=== PATIENT | male | born 1945 | race Caucasian/White ===

== ENCOUNTER 2019-08-11 13:17 | Outpatient (CLI) | payer MEDICARE, OTHER, SELFPAY ==
--- NOTE | 2019-08-11 13:39 | XR_ITS ---
WS: [id number] CHEST 2 VIEWS HISTORY: CHRONIC OBSTRUCTIVE PULMONARY DISEASE COMPARISON: 05/19/2019 Lungs: Stable elevation of the LEFT hemidiaphragm consistent with an eventration. No pneumonia. Val l vasculature. No pleural effusion or pneumothorax. Mild fullness in the paratracheal region on the R IGHT is similar to 10/15/2018. No mediastinal widening or interval change. Cardiac size: Normal. Mediastinum/Aorta: Mild atherosclerosis aorta. Bones: Prior anterior cervical fusion. XR/XR chest 2V* [id number] IMPRESSION: 1. Stable chest with no acute pneumonia. 2. Mild atherosclerosis aorta.
== END 2019-08-11 13:18 | disposition home or self-care (01) ==
LOC: WPI 13:22
PROVIDERS: Family Provider Family Medicine; PCP Family Medicine; Referring Provider Family Medicine; Visit Provider Family Medicine
DX: J44.9 Chronic obstructive pulmonary disease, unspecified (principal); I70.0 Atherosclerosis of aorta
CPT/HCPCS: 71046

== ENCOUNTER → 2020-05-18 14:44 | Outpatient (BNVA) | payer MEDICARE, OTHER, SELFPAY | PROVIDERS: Family Provider Family Medicine; PCP Family Medicine; Visit Provider Surgery | DX: Z11.59 Encounter for screening for other viral diseases (principal) | CPT/HCPCS: 87635 ==

== ENCOUNTER 2020-05-23 07:05 | Day surgery (SDC) | payer MEDICARE, OTHER, SELFPAY ==
[2020-05-19 11:31] VITALS: BMI 27.4
[2020-05-23 07:23] VITALS: BP 164/89; PULSE 68; RESP 18; TEMP 36.7; O2SAT 99
[2020-05-23] MEDS: sodium chloride 0.9% 1,000 ML 30 ML IV (07:34)
--- NOTE | 2020-05-23 07:44 | ANES.PREANE2 ---
Pre-Anesthetic Assessment Pre-Anesthetic Assessment: Height/Weight: Height 1.68 m Weight 77.111 kg Temp Pulse Resp BP Pulse Ox 98.1 F 68 18 164/89 99 05/23/20 07:23 05/23/20 07:23 05/23/20 07:23 05/23/20 07:23 05/23/20 07:23 Preop Diagnosis: Screening, dysphagia Proposed Procedure: Operation Date: 05/23/20 08:00 Proposed Procedures p EGD Dilation W/ poss Balloon/Colon(Not Applicable) - Nasir Godfrey MD s Colonoscopy(Not Applicable) - Nasir Godfrey MD Familial anesthetic complications: None Was Beta Phillip taken within 24 hours: Yes Last intake: Intake Last Liquid Date 05/22/20 Last Liquid Time 19:00 Last Solid Date 05/21/20 Last Solid Time 20:00 Social: Social History: No alcohol and No tobacco Exam: Pre-Anes Outpt Exam: alert, oriented x 3, clear to auscultation bilaterally and regular rate & rhythm Airway: Cervical ROM: WNL MP: 2 Dentition: Other (edentulous) Pulmonary: Pulmonary: COPD and Sleep apnea CV/HEM: CV/HEM: HTN GI: GI: GERD Comments: dysphagia Anesthetic Plan: ASA status: 2 Anesthesia: MAC Risk of > 500 ml blood loss (7ml/kg in children): No Meds/Allergies Current Medications: Current Medications Generic Name Dose Route Start Last Admin Trade Name Freq PRN Reason Stop Dose Admin Sodium Chloride 1,000 mls @ 30 ml s/hr 05/23/20 07:00 05/23/20 07:34 Sodium Chloride 0.9% IV 30 mls/hr .Q24H FRANCESCA Administration PFSH Anesthesia PFSH: Medical History Chronic bronchitis, obstructive Essential hypertension GERD (gastroesophageal reflux disease) KAREN (obstructive sleep apnea) Surgical History History of esophagogastroduodenoscopy (EGD) balloon dilation History of neck surgery S/P cataract surgery Social History Smoking and tobacco status: never smoked Alcohol intake: never Data Anesthesia Cardiac Studies: No Data to Display
--- NOTE | 2020-05-23 08:07 | W.PM.OPSUD ---
Surgery/Procedure H&P Update DATE OF PROCEDURE: May 23, 2020 DATE H&P PERFORMED: 05/05/20 H&P UPDATE INFORMATION: I have reviewed H&P completed within last 30 days, I have examined patient prior to procedure and No changes to prior documentation PREOP DIAGNOSIS: Screening, dysphagia PLANNED PROCEDURE: Operation Date: 05/23/20 08:00 Proposed Procedures p EGD Dilation W/ poss Balloon/Colon(Not Applicable) - Nasir Godfrey MD s Colonoscopy(Not Applicable) - Nasir Godfrey MD
[2020-05-23 08:43] VITALS: BP 98/61; PULSE 65; RESP 16; TEMP 36.1; O2SAT 94
[2020-05-23 09:02] VITALS: BP 124/68; PULSE 61; RESP 18; O2SAT 100
--- NOTE | 2020-05-23 09:34 | ANE.PACU2 ---
Inpatient post-anesthesia follow up: Airway intact: Yes Vital signs: Temperature 97 F Pulse Rate 61 Respiratory Rate 18 Blood Pressure 124/68 Pulse Oximetry 100 Oxygen Delivery Me thod Room Air Oxygen Flow Rate Fraction of Inspir ed Oxygen Hydration adequate: Yes Nausea and vomiting: No Pain level: 1 Mental status: Baseline
== END 2020-05-23 09:21 | disposition home or self-care (01) ==
PROVIDERS: PCP Family Medicine; Visit Provider Surgery
PROC: 0DJD8ZZ Inspection of Lower Intestinal Tract, Via Natural or Artificial Opening Endoscopic (ICD-10-PCS; CPT 45378; 2020-05-23 08:00)
DX: Z12.11 Encounter for screening for malignant neoplasm of colon (principal); R13.10 Dysphagia, unspecified; D12.2 Benign neoplasm of ascending colon; K29.70 Gastritis, unspecified, without bleeding; K29.80 Duodenitis without bleeding; J44.9 Chronic obstructive pulmonary disease, unspecified; I10 Essential (primary) hypertension; G47.33 Obstructive sleep apnea (adult) (pediatric); K21.9 Gastro-esophageal reflux disease without esophagitis
CPT/HCPCS: 12345; 43235; 45380; 88305; J2704; J7030

== ENCOUNTER → 2020-08-15 11:56 | Outpatient (BNVA) | payer MEDICARE, SELFPAY | PROVIDERS: PCP Family Medicine; Visit Provider Family Medicine | DX: I10 Essential (primary) hypertension (principal); R13.12 Dysphagia, oropharyngeal phase; J44.9 Chronic obstructive pulmonary disease, unspecified | CPT/HCPCS: 80053; 85025 ==

== ENCOUNTER → 2020-11-28 13:00 | Outpatient (BNVA) | payer MEDICARE, SELFPAY | PROVIDERS: PCP Family Medicine; Referring Provider Dermatology; Visit Provider Podiatrist Foot & Ankle Surgery | DX: M79.671 Pain in right foot (principal); M76.821 Posterior tibial tendinitis, right leg; M76.822 Posterior tibial tendinitis, left leg; Z46.89 Encounter for fitting and adjustment of other specified devices | CPT/HCPCS: 73630; 97760; L1902 ==

== ENCOUNTER 2020-11-28 14:50 | Outpatient (CLI) | payer MEDICARE, SELFPAY | END 2020-11-28 14:51 | PROVIDERS: PCP Family Medicine; Visit Provider Podiatrist Foot & Ankle Surgery | DX: Z46.89 Encounter for fitting and adjustment of other specified devices (principal); M76.821 Posterior tibial tendinitis, right leg; M76.822 Posterior tibial tendinitis, left leg; M79.671 Pain in right foot | CPT/HCPCS: 97760; L1902 ==

== ENCOUNTER 2021-09-30 12:50 | Inpatient (IN) | payer MEDICARE, SELFPAY ==
[2021-09-30] VITALS (7 sets, daily range): BP systolic 93–189; BP diastolic 50–97; PULSE 66–97; RESP 18–20; TEMP 36.5–36.8; O2SAT 94–99; BMI 26.6
--- NOTE | 2021-09-30 12:52 | XRR_ITS ---
PROCEDURE INFORMATION: Exam: XR Right Knee Exam date and time: 09/30/2021 12:52 PM Age: 76 years old Clinical indication: Injury or trauma; Fall; Blunt trauma; Knee; Right TECHNIQUE: Imaging protocol: XR Right knee. Views: 1 or 2 views. COMPARISON: No relevant prior studies available. FINDINGS: Bones/joints: There is tricompartmental narrowing consistent with osteoarthritis. No acute bony abnormalities seen. Soft tissues: Unremarkable XR/XR knee RT 1-2V [id number] IMPRESSION: 1. No acute bone abnormalities 2. Osteoarthritis is seen
--- NOTE | 2021-09-30 12:52 | XRR_ITS ---
PROCEDURE INFORMATION: Exam: XR Right Hip Exam date and time: 09/30/2021 12:52 PM Age: 76 years old Clinical indication: Injury or trauma; Fall; Blunt trauma (contusions or hematomas); Right; Hip TECHNIQUE: Imaging protocol: XR Right hip. Views: 2 or 3 views hip with pelvis when performed. COMPARISON: No relevant prior studies available. FINDINGS: Bones/joints: There is a displaced comminuted intertrochanteric fracture right hip. Soft tissues: Soft tissue effusion is seen in the right hip soft tissues. XR/XR hip RT 2-3V wo/w pel* [id number] IMPRESSION: Displaced comminuted intertrochanteric fracture right hip
[2021-09-30] MEDS: acetaminophen 500 mg Tablet PO (13:04)
--- NOTE | 2021-09-30 13:08 | ED_ITS ---
HPI - General Adult General: Chief complaint: Fall Stated complaint: RIGHT HIP AND KNEE PAIN S/P FALL Time Seen by Provider: 09/30/21 12:51 History of Present Illness: Patient is a 76-year-old male who slipped and fell on ice about an hour ago while walking his dog. Patient tells me that he slipped and fell onto his right hip and now is complaining of right hip and right knee pain patient also reports hitting the right side of his head. Patient denies any associate chest pain, shortness breath, palpitation or lightheadedness prior to the episode of fall. His leg appears to be shortened and externally rotated. Patient denies any anticoagulation use. No other pain elsewhere. Onset:1 hr ago Duration:1 hr Location:home Severity:moderate/severe Associated symptoms: Deny chest pain, dyspnea, nausea, rash, palpitations or vomiting Review of Systems Const: Denies: fever(s) or chills Eyes: Denies: change in vision ENMT: Denies: mouth pain Card: Denies: chest pain or palpitations Resp: Denies: dyspnea or non-productive cough GI: Denies: abdominal pain, nausea, vomiting or diarrhea : Denies: dysuria Musc: Reports: extremity pain (+R knee and hip pain) Skin/Breast: Denies: rash or new lesions Neuro: Denies: weakness in extremities Psych: Reports: other (Normal mood) Mejia/Lymph: Denies: easy bruising [facility] ED PFSH: Medical History (Updated 09/30/21 @ 14:58 by Vinny Keller MD) Chronic bronchitis, obstructive Essential hypertension GERD (gastroesophageal reflux disease) KAREN (obstructive sleep apnea) Surgical History History of colonoscopy with polypectomy (05/23/20) History of esophagogastroduodenoscopy (EGD) (05/23/20) Gastritis is duodenitis History of neck surgery S/P cataract surgery Social History Smoking and tobacco status: former smoker Alcohol intake: never Physical Exam Const: COMMON NORMALS: alert HENMT: COMMON NORMALS: atraumatic HEAD & SCALP: atraumatic MOUTH: moist mucous membranes not abnormal Eye: COMMON NORMALS: EOMs intact bilaterally and conjunctivae normal CONJUNCTIVA: Yes conjunctivae normal Neck/C-Spine: COMMON NORMALS: full ROM and supple Resp: COMMON NORMALS: normal respiratory effort and clear to auscultation bilaterally AUSCULTATION: clear to auscultation bilaterally Cardio: COMMON NORMALS: regular rate RATE: regular rate GI: COMMON NORMALS: Soft to palpation and non-tender PALPATION: Yes Soft to palpation Extremity: OTHER: + Externally rotated and shortened right leg, right hip and knee tenderness palpation, limited range of motion of the right knee and hip due to significant pain, 2+ DP/PT pulses, neurovascular exam in the right lower extremity intact Neuro: SENSORIUM/ORIENTATION: Yes alert MOTOR EXAM: No Abnormal motor strength present and Other motor observations present (no focal motor deficits) Psych: COMMON NORMALS: speech normal SPEECH: Yes normal speech MOOD & AFFECT: Yes euthymic mood Procedures Nerve Block Nerve Block 1: Local Anesthetic: lidocaine 1%, bupivacaine 0.5% and with epi Amount of anesthesia used (mL): 8 Nerve Blocks: other (pericapsular JENNIFER block) Procedure Successful: Yes Patient Tolerated Procedure: well Complications: none Additional Comments: Timeout was performed prior to the procedure. Risks discussed with patient extensively with patient of the JENNIFER block occluding risk for infection, vascular injury, LAST syndrome, and motor deficit. 12 cc of saline was mixed with 8 cc of 50/51% lidocaine and 0.5% bupivacaine. Right groin was cleaned with chlorhexidine preps x2. Sterile gloves were donned and sterile ultrasound probe cover was used. The AIIS was identified followed by IPE. The obturator tendon was then identified. Under ultrasound guidance, 20 cc mixed solution was sterilely injected underneath the obturator tendon. Patient tolerated the patient procedure without any difficulty. Patient achieved adequate anesthesia with technique. Course Vital Signs: Vital signs: Vital Signs Temperature 98.2 F 09/30/21 12:53 Pulse Rate 75 09/30/21 12:53 Respiratory Rate 18 09/30/21 12:58 Blood Pressure 159/97 09/30/21 12:58 Pulse Oximetry 96 09/30/21 13:17 MDM - General Adult Medical Decision Making 76-year-old male presenting to the emergency room after a slip and fall on ice. Patient has an externally rotated and shortened right leg. The affected site is neurovascularly intact. Patient also reports hitting his head. Work-up includes x-ray pelvis, x-ray hip, x-ray knee, CT head Treatments: Tylenol, reassessment Was found to have a right intertrochanteric fracture. Pain was controlled with the JENNIFER nerve block. Please refer to the procedure note. Case was duscyssed with Dr. Santana who admit patient. Dr. Hull will follow patient for medical consult. Rest of imaging negative for any acute findings. Disposition: admission Lab Data : 09/30/21 13:12 09/30/21 13:12 Radiology Impressions Hip/Pelvis X-Ray 09/30/21 12:52 IMPRESSION: Displaced comminuted intertrochanteric fracture right hip Knee X-Ray 09/30/21 12:52 IMPRESSION: 1. No acute bone abnormalities 2. 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 No acute intracranial abnormality. 2. Chronic sinusitis Chest X-Ray 09/30/21 13:29 IMPRESSION: 1. No acute findings. 2. Metallic hardware cervical spine Laboratory Results WBC 13.5 10^3/uL (4.0-10.0) H 09/30/21 13:12 RBC 3.95 10^6/uL (4.1-5.3) L 09/30/21 13:12 Hgb 12.5 g/dL (11.7-16.6) 09/30/21 13:12 Hct 37.7 % (42.0-52.0) L 09/30/21 13:12 MCV 95.4 fl (80-94) H 09/30/21 13:12 MCH 31.6 pg (28.0-34.0) 09/30/21 13:12 MCHC 33.2 g/dL (30.0-36.0) 09/30/21 13:12 RDW 12.6 % (12.1-15.1) 09/30/21 13:12 Plt Count 312 10^3/cmm (130-400) 09/30/21 13:12 MPV 10.1 fL (7.4-10.4) 09/30/21 13:12 Neut % (Auto) 74.1 % 09/30/21 13:12 Lymph % (Auto) 17.2 % 09/30/21 13:12 [place] % (Auto) 6.0 % 09/30/21 13:12 Eos % (Auto) 1.6 % 09/30/21 13:12 Baso % (Auto) 0.5 % 09/30/21 13:12 Neut # (Auto) 10.02 10^3/uL (1.8-7.7) H 09/30/21 13:12 Lymph # (Auto) 2.3 10^3/uL (0.8-4.8) 09/30/21 13:12 [place] # (Auto) 0.8 10^3/uL (0.2-0.9) 09/30/21 13:12 Eos # (Auto) 0.2 10^3/uL (0.0-0.8) 09/30/21 13:12 Baso # (Auto) 0.1 10^3/uL (0.0-0.1) 09/30/21 13:12 Nucleated RBC % (auto) 0 % 09/30/21 13:12 Nucleated RBCs # 0.0 /100WBC 09/30/21 13:12 Sodium 133 mmol/L (136-145) L 09/30/21 13:12 Potassium 4.1 mmol/L (3.5-5.1) 09/30/21 13:12 Chloride 96 mmol/L (98-107) L 09/30/21 13:12 Carbon Dioxide 27 mmol/L (22-29) 09/30/21 13:12 Anion Gap 14.1 (5-19) 09/30/21 13:12 BUN 28 mg/dL (8-23) H 09/30/21 13:12 Creatinine 1.0 mg/dL (0.7-1.2) 09/30/21 13:12 GFR Calculation Not Reportable 09/30/21 13:12 Glucose 131 mg/dL (65-115) H 09/30/21 13:12 Calculated Osmolality 283 mOsm/kg (285-295) L 09/30/21 13:12 Calcium 9.7 mg/dL (8.5-10.5) 09/30/21 13:12 Imaging Data Other Imaging: Radiologist's impression: [address] [address] [address] Scan Report Signed Patient: Shai Duran Unit #: [id number] : 01/03/1950 Age/Sex: 71 / M ADM Date: 09/30/21 Loc: ER Room/Bed: Attending Dr: Ordering Provider/Ordering MD: Vinny Keller MD Date of Service: 09/30/21 Procedure(s): CT lumbar spine wo con* [id number] Accession Number(s): [id number] Report Number: [id number] PROCEDURE INFORMATION: Exam: CT Lumbar Spine Without Contrast Exam date and time: 09/30/2021 12:35 PM Age: 71 years old Clinical indication: Low back pain; Patient HX: C/O worsening chronic lbp into L pelvis/hip denies new injury TECHNIQUE: Imaging protocol: Computed tomography images of the lumbar spine without contrast. Radiation optimization: All CT scans at this facility use at least one of these dose optimization techniques: automated exposure control; mA and/or kV adjustment per patient size (includes targeted exams where dose is matched to clinical indication); or iterative reconstruction. COMPARISON: No relevant prior studies available. RADIATION DOSE METRICS: Total DLP (mGy-cm): 2297.99 FINDINGS: Vertebrae: No acute fracture. Normal alignment. Chronic degenerative disc disease is present throughout the lumbar spine with disc space narrowing sclerosis and osteophytes. There is sclerosis narrowing and hypertrophy of the lumbar facet joints. L1-L2: There is disc protrusion/osteophyte complex with facet joint hypertrophy causing moderate spinal stenosis. There is no significant neural foraminal narrowing. L2-L3: There is disc protrusion/osteophyte complex with bilateral facet and ligamentous hypertrophy causing severe spinal stenosis and mild bilateral neural foraminal narrowing L3-L4: There is mild diffuse disc bulging and there is bilateral facet joint hypertrophy. There is mild spinal stenosis L4-L5: There is disc protrusion/osteophyte complex with prominent bilateral facet hypertrophy causing moderate spinal stenosis with mild neural foraminal narrowing L5-S1: There is mild disc protrusion. There is prominent degenerative disease in the facet joints. There is no significant spinal stenosis or neural foraminal narrowing. Soft tissues: Unremarkable. CT/CT lumbar spine wo con* [id number] IMPRESSION: Multilevel chronic degenerative disc disease and spinal stenosis. There is moderate spinal stenosis at L1-L2 and L4-L5 and severe spinal stenosis at the L2-L3 level. ? Dictated By: Chilo Lewis Signed By: Chilo Lewis Signed Date/Time: 09/30/21 1358 DD/ 1235 Launch?Image [facility] [place] [id number] XRay Report Signed Patient: Seb Spangler Unit #: [id number] : 1945 Age/Sex: 76 / M ADM Date: 09/30/21 Loc: ER Room/Bed: Attending Dr: Ordering Provider/Ordering MD: Vinny Keller MD Date of Service: 09/30/21 Procedure(s): XR knee RT 1-2V 58602 Accession Number(s): [id number] Report Number: [id number] PROCEDURE INFORMATION: Exam: XR Right Knee Exam date and time: 09/30/2021 12:52 PM Age: 76 years old Clinical indication: Injury or trauma; Fall; Blunt trauma; Knee; Right TECHNIQUE: Imaging protocol: XR Right knee. Views: 1 or 2 views. COMPARISON: No relevant prior studies available. FINDINGS: Bones/joints: There is tricompartmental narrowing consistent with osteoarthritis. No acute bony abnormalities seen. Soft tissues: Unremarkable XR/XR knee RT 1-2V 63160 IMPRESSION: 1. No acute bone abnormalities 2. Osteoarthritis is seen ? Dictated By: Gera Hook Signed By: Gera Hook Signed Date/Time: 09/30/21 1417 DD/ 1252 Seb Spangler??76??M??1945 ? Allergy/Adv: codeine Close Chest X-Ray (Signed) Gera Hook - 09/30/[address] 09/30/21 Knee X-Ray (Signed) Gera Hook - 09/30/21 Hip and Pelvis X-Ray (Signed) Gera Hook - 09/30/21 Foot X-Ray (Signed) Gera Hook - 11/28/20 Chest X-Ray (Signed) Mitzy Knott - 08/11/19 Launch?Image [employer] [place] [address] XRay Report Signed Patient: Seb Spangler Unit #: [id number] : 1945 Age/Sex: 76 / M ADM Date: 09/30/21 Loc: ER Room/Bed: Attending Dr: Ordering Provider/Ordering MD: Vinny Keller MD Date of Service: 09/30/21 Procedure(s): XR hip RT 2-3V wo/w pel* [id number] Accession Number(s): [id number] Report Number: [id number] PROCEDURE INFORMATION: Exam: XR Right Hip Exam date and time: 09/30/2021 12:52 PM Age: 76 years old Clinical indication: Injury or trauma; Fall; Blunt trauma (contusions or hematomas); Right; Hip TECHNIQUE: Imaging protocol: XR Right hip. Views: 2 or 3 views hip with pelvis when performed. COMPARISON: No relevant prior studies available. FINDINGS: Bones/joints:? There is a displaced comminuted intertrochanteric fracture right hip. Soft tissues:? Soft tissue effusion is seen in the right hip soft tissues.? XR/XR hip RT 2-3V wo/w pel* [id number] IMPRESSION: Displaced comminuted intertrochanteric fracture right hip ? Dictated By: Gera Hook Signed By: Gera Hook Signed Date/Time: 09/30/21 1419 DD/ [address] [address] [address] Scan Report Signed Patient: Seb Spangler Unit #: [id number] : 1945 Age/Sex: 76 / M ADM Date: 09/30/21 Loc: [facility] Room/Bed: [facility] Attending Dr: Brandon Santana MD Ordering Provider/Ordering MD: Vinny Keller MD Date of Service: 09/30/21 Procedure(s): CT head wo con* [id number] Accession Number(s): [id number] Report Number: [id number] PROCEDURE INFORMATION: Exam: CT Head Without Contrast Exam date and time: 09/30/2021 1:06 PM Age: 76 years old Clinical indication: Injury or trauma; Blunt trauma (contusions or hematomas); Without loss of consciousness; Patient HX: Fall on ice hitting R side of head denies loc TECHNIQUE: Imaging protocol: Computed tomography of the head without contrast. Radiation optimization: All CT scans at this facility use at least one of these dose optimization techniques: automated exposure control; mA and/or kV adjustment per patient size (includes targeted exams where dose is matched to clinical indication); or iterative reconstruction. COMPARISON: MRI Head w/wo* [id number] 12/08/2014 8:45 AM RADIATION DOSE METRICS: Total DLP (mGy-cm): 865.97 FINDINGS: Brain: Normal. No hemorrhage. Unremarkable white matter. No mass effect. Cerebral ventricles: No ventriculomegaly. Paranasal sinuses: Mucous collections are noted in the ethmoid sinuses the left frontal sinus, and posterior aspect of the maxillary sinuses. These findings are consistent with chronic sinusitis. No fluid levels. Mastoid air cells: Visualized mastoid air cells are well aerated. Bones/joints: Unremarkable. No acute fracture. Soft tissues: Unremarkable. Other findings: Comparison to prior examination similar findings is seen CT/CT head wo con* [id number] IMPRESSION: 1. No acute intracranial abnormality. 2. Chronic sinusitis ? Dictated By: Gera Hook Signed By: Gera Hook Signed Date/Time: 09/30/21 1458 DD/ 1306 Discharge Plan Discharge Patient Disposition: Admitted As Inpatient Admit Provider: Brandon Santana Clinical Impression: Fall, Acute hip pain, Acute knee pain, Closed intertrochanteric fracture Condition: Stable Coding Level of Care Code ED Cyber Forensics Analyst for Faye Fwd Exam Comprehensive
--- NOTE | 2021-09-30 13:16 | PC.NURSE ---
c/o pain to R hip & knee, RLE externally rotated & shortened.
--- NOTE | 2021-09-30 13:29 | XRR_ITS ---
PROCEDURE INFORMATION: Exam: XR Chest Exam date and time: 09/30/2021 1:29 PM Age: 76 years old Clinical indication: Injury or trauma; Fall; Blunt trauma (contusions or hematomas); Additional info: Pre op TECHNIQUE: Imaging protocol: XR of the chest. Views: 1 view. COMPARISON: CR XR chest 2V* [id number] 08/11/2019 1:44 PM FINDINGS: Lungs: Unremarkable. No consolidation. Pleural spaces: Unremarkable. No pleural effusion. No pneumothorax. Heart/Mediastinum: Unremarkable. No cardiomegaly. Bones/joints: Metallic hardware is seen in the cervical spine XR/XR chest 1V portable [id number] IMPRESSION: 1. No acute findings. 2. Metallic hardware cervical spine
--- NOTE | 2021-09-30 13:46 | ECG_ITS ---
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 Measurements Intervals [place] Rate: 72 P: 55 VT: 178 QRS: 28 QRSD: 106 T: 60 QT: 384 QTc: 422 Interpretive Statements SINUS RHYTHM NONSPECIFIC T-WAVE ABNORMALITY Compared to ECG 10/15/2018 13:07:06 T-wave abnormality now present Electronically Signed On 09-30-2021 21:54:03 ACCORDION TUNER by Walker Marino M.D. [email or web address]
[2021-09-30 14:00] LABS: Basophils # 0.1 10^3/uL (0.0-0.1); Basophils % 0.5 %; Eosinophils # 0.2 10^3/uL (0.0-0.8); Eosinophils % 1.6 %; Hematocrit 37.7 % (42.0-52.0); Hemoglobin 12.5 g/dL (11.7-16.6); Lymphocytes # 2.3 10^3/uL (0.8-4.8); Lymphocytes % 17.2 %; Mean Corpuscular HGB Conc 33.2 g/dL (30.0-36.0); Mean Corpuscular Hemoglobin 31.6 pg (28.0-34.0); Mean Corpuscular Volume 95.4 fl (80-94); Mean Platelet Volume 10.1 fL (7.4-10.4); Monocytes # 0.8 10^3/uL (0.2-0.9); Neutrophils # 10.02 10^3/uL (1.8-7.7); Neutrophils % 74.1 %; Nucleated Red Blood Cells % 0 %; Platelet Count 312 10^3/cmm (130-400); Red Blood Count 3.95 10^6/uL (4.1-5.3); Red Cell Distribution Width 12.6 % (12.1-15.1); White Blood Count 13.5 10^3/uL (4.0-10.0)
[2021-09-30 14:09] LABS: Blood Urea Nitrogen 28 mg/dL (8-23); Calcium 9.7 mg/dL (8.5-10.5); Carbon Dioxide 27 mmol/L (22-29); Chloride 96 mmol/L (98-107); Glucose 131 mg/dL (65-115); Osmolality Calculated 283 mOsm/kg (285-295); Sodium 133 mmol/L (136-145)
[2021-09-30 14:40] LABS: Anion Gap 14.1 (5-19)
[2021-09-30 14:41] LABS: Potassium 4.1 mmol/L (3.5-5.1)
[2021-09-30 14:55] LABS: INR 0.99 (0.8-1.2)
--- NOTE | 2021-09-30 16:41 | P.CONIM_ITS ---
Providers/Reason For Consult Consulting Physician/Specialty*: Brandon Santana MD; orthopedic surgery Reason for Consult*: Right intratrochanteric hip fracture Attending Physician: Brandon Santana MD Primary Care Provider: Cecile Johnston MD History of Present Illness History of Present Illness Seb Spangler is a 76 year old male slipped and fell on the ice while walking his dog this morning with resulting pain in his right hip. He was transferred here via EMS where radiographs revealed a displaced right intertrochanteric hip fracture. He is admitted to medicine and orthopedics is consulted for management of the fracture Medications/Allergies Home Medications Medication Instructions Recorded Confirmed Last Taken Type magnesium aspartate HCl 61 mg (615 61 mg PO DAILY 08/11/19 09/30/21 09/30/21 Hi story mg) tablet,delayed release pantoprazole 40 mg tablet,delayed 40 mg PO DAILY 90 Days #90 tab 05/10/21 09/30/21 09/30/21 Rx release (Protonix) hydrochlorothiazide 25 mg tablet 25 mg PO QAM #90 tab 08/08/21 09/30/21 09/30/21 Rx cetirizine 10 mg tablet (Zyrtec) 10 mg PO DAILY PRN 09/30/21 09/30/21 Unknown History metoprolol tartrate 50 mg tablet 50 mg PO BID 09/30/21 09/30/21 09/30/21 History Allergies Allergy/AdvReac Type Severity Reaction Status Date / Time codeine Allergy Mild nausea Verified 06/05/21 12:25 PFSH Acute PFSH: Medical History (Updated 09/30/21 @ 16:43 by Brandon Santana MD) Chronic bronchitis, obstructive Essential hypertension GERD (gastroesophageal reflux disease) KAREN (obstructive sleep apnea) Surgical History History of colonoscopy with polypectomy (05/23/20) History of esophagogastroduodenoscopy (EGD) (05/23/20) Gastritis is duodenitis History of neck surgery S/P cataract surgery Social History Smoking and tobacco status: former smoker Alcohol intake: never Vitals/I&O/Wt Last Vital Signs Temp 97.7 F 09/30/21 16:22 Pulse 77 09/30/21 16:22 Resp 18 09/30/21 16:22 BP 174/50 09/30/21 16:22 Pulse Ox 99 09/30/21 16:22 Weight last 48 hrs Weight 170 lb Weight 170 lb Physical Exam Narrative: She has clear shortening and external rotation of the right hip. There is exquisite pain with motion of the right hip. He will flex and extend his right toes. His sensation is intact to light touch. I cannot feel a good dorsalis pedis pulse. Data : 09/30/21 13:12 09/30/21 13:12 Xray Ortho: My impression: Radiographs of the right hip are reviewed including AP of the pelvis and 2 views of the right hip. The patient has a comminuted right intratrochanteric hip fracture consisting of at least 3 fragments head neck shaft and lesser trochanteric fragment. Has significant osteopenia A&P Assessment and plan (1) Closed intertrochanteric fracture of right hip: I discussed options with the patient.. I told the patient we could treat this nonoperatively but certainly they would be at risk for medical problems without surgery. Theywould have problems with pain that would require narcotics for pain control. They would require a long period of bedrest pc analyst risk for pneumonia and skin breakdown. I discussed surgical intervention with the patient. I told them with open reduction internal fixation they should be able to be mobilized and resume ambulatory status. We can eliminate the problems associated with prolonged bed rest and would have better control of pain. Certainly there would be inherent risk with surgery. These would would include the risk of cardiac complications, stroke, infection, and even . I discussed risk of any orthopedic implant including nonunion, malunion, a component failure. I discussed the possible need for component removal. I discussed risk of deep venous thromboses and pulmonary emboli that are present with any treatment and the importance of DVT prophylaxis. The patient expressed good understanding of alternative treatments, seem to comprehend, and agrees to surgical intervention. Status: Acute Coding Level of Care Code Acute Hand Printed Circuit Board Assembler for Faye Nick Diagnoses Closed intertrochanteric fracture of right hip S72.141A
[2021-09-30] MEDS: metoprolol tartrate 50 mg Tablet PO (16:57)
[2021-09-30] MEDS: docusate sodium 100 mg Capsule PO (16:57)
[2021-09-30] MEDS: morphine 4 mg/mL SDV 1 mL 2 MG IVP (18:34)
--- NOTE | 2021-09-30 19:26 | PC.NURSE ---
Spoke to Dr. Cunningham in regards to am lovenox before surgery in am. He ordered to hold it for this am.
[2021-09-30] MEDS: ondansetron 2 mg/ML SDV 2 mL 4 MG IVP (19:58)
[2021-10-01] VITALS (24 sets, daily range): BP systolic 94–131; BP diastolic 59–78; PULSE 64–102; RESP 16–18; TEMP 36.4–37.9; O2SAT 91–98
--- NOTE | 2021-10-01 | XR_ITS ---
WS: [id number] INTRAOPERATIVE TECHNIQUE: 4 Spot fluoroscopic images for intraoperative purposes. FLUOROSCOPY TIME: 69.1 seconds CLINICAL INFORMATION: OR PICS COMPARISON: None. FINDINGS: Intramedullary aurea and screw fixation RIGHT hip. Hardware appears in good position. Avulsion of lesse r trochanter. Intramedullary aurea extends into the distal femur XR/XR femur RT min 2V* [id number] IMPRESSION: Images obtained for intraoperative purposes.
--- NOTE | 2021-10-01 | SCC_ITS ---
Procedure done: Open reduction internal fixation right hip with intramedullary device 69.1 seconds of fluoroscopic guidance, for a cumulative dose of 10.14 mGy, was provided to Dr. Santana by the radiology department. C-arm images of the RIGHT femur were saved for the patient's permanent record. [facility]
[2021-10-01] MEDS: morphine 4 mg/mL SDV 1 mL 2 MG IVP ×2 (01:44→08:59)
[2021-10-01 04:34] LABS: Basophils % 0.3 %; Eosinophils % 0.1 %; Hematocrit 34.2 % (42.0-52.0); Hemoglobin 11.1 g/dL (11.7-16.6); Lymphocytes % 16.7 %; Mean Corpuscular HGB Conc 32.5 g/dL (30.0-36.0); Mean Corpuscular Hemoglobin 31.3 pg (28.0-34.0); Mean Corpuscular Volume 96.3 fl (80-94); Monocytes # 1.2 10^3/uL (0.2-0.9); Neutrophils # 8.68 10^3/uL (1.8-7.7); Neutrophils % 72.3 %; Nucleated Red Blood Cells % 0 %; Platelet Count 269 10^3/cmm (130-400); Red Blood Count 3.55 10^6/uL (4.1-5.3); Red Cell Distribution Width 12.9 % (12.1-15.1)
[2021-10-01 05:05] LABS: Anion Gap 17.1 (5-19); Blood Urea Nitrogen 30 mg/dL (8-23); Carbon Dioxide 26 mmol/L (22-29); Chloride 97 mmol/L (98-107); Glucose 135 mg/dL (65-115); Osmolality Calculated 290 mOsm/kg (285-295); Potassium 4.1 mmol/L (3.5-5.1); Sodium 136 mmol/L (136-145)
[2021-10-01] MEDS: metoprolol tartrate 50 mg Tablet PO ×2 (09:03→17:59)
--- NOTE | 2021-10-01 11:01 | ANES.PREANE2 ---
Pre-Anesthetic Assessment Height/Weight: Height 1.7 m Weight 77.111 kg Temp Pulse Resp BP Pulse Ox 100.3 F H 80 18 122/76 96 10/01/21 10:00 10/01/21 10:00 10/01/21 10:00 10/01/21 10:00 10/01/21 10:00 Preop Diagnosis: Screening, dysphagia Operation Date: 10/01/21 12:35 Proposed Procedures p Trochanteric Femoral Nail(Right) - Brandon Santana MD Familial anesthetic complications: None Was Beta Phillip taken within 24 hours: Yes Was Clonidine taken within 24 hours: N/A Last intake: Intake Last Liquid Date 09/30/21 Last Liquid Time 23:30 Last Solid Date 09/30/21 Last Solid Time 23:30 Social No alcohol and No tobacco Exam alert, oriented x 3, clear to auscultation bilaterally and regular rate & rhythm Airway Submandibular: within normal limits Cervical ROM: within normal limits Mallampati: Class II Dentition: false CV/HEM Hypertension GI Gastroesophageal Reflux Disease Musc/skel Osteoarthritis/DJD Cervical fusion Anesthetic Plan ASA status: 3 Anesthesia: Choice Risk of > 500 ml blood loss (7ml/kg in children): Yes, adequate IV access and fluids planned Medications/Allergies Home Medications Medication Instructions Recorded Confirmed Last Taken Type magnesium aspartate HCl 61 mg (615 61 mg PO DAILY 08/11/19 09/30/21 09/30/21 History mg) tablet,delayed release pantoprazole 40 mg tablet,delayed 40 mg PO DAILY 90 Days #90 tab 05/10/21 09/30/21 09/30/21 Rx release (Protonix) hydrochlorothiazide 25 mg tablet 25 mg PO QAM #90 tab 08/08/21 09/30/21 09/30/21 Rx cetirizine 10 mg tablet (Zyrtec) 10 mg PO DAILY PRN 09/30/21 09/30/21 Unknown History metoprolol tartrate 50 mg tablet 50 mg PO BID 09/30/21 09/30/21 09/30/21 History Allergies Allergy/AdvReac Type Severity Reaction Status Date / Time codeine Allergy Mild nausea Verified 06/05/21 12:25 Current Medications Generic Name Dose Route Start Last Admin Trade Name Freq PRN Reason Stop Dose Admin Docusate Sodium 100 mg 09/30/21 18:00 10/01/21 09:09 Docusate Sodium 100 Mg Capsule PO Not Given BID FRANCESCA Enoxaparin Sodium 40 mg 10/01/21 07:00 10/01/21 04:36 Enoxaparin 40 Mg/0.4 Ml Syringe SUBCUT Not Given Q24H FRANCESCA Hydrochlorothiazide 25 mg 10/01/21 06:00 10/01/21 04:36 Hydrochlorothiazide 25 Mg Tablet PO Not Given QAM FRANCESCA Metoprolol Tartrate 50 mg 09/30/21 18:00 10/01/21 09:03 Metoprolol Tartrate 50 Mg Tablet PO 50 mg BID FRANCESCA Administration Morphine Sulfate 2 mg 09/30/21 16:22 10/01/21 08:59 Morphine 4 Mg/Ml Sdv 1 Ml IVP 2 mg Q4H PRN Administration SEVERE PAIN Non-Formulary Medication 61 mg 10/01/21 09:00 10/01/21 09:09 Magnesium Aspartate Hcl PO Not Given DAILY FRANCESCA Ondansetron HCl 4 mg 09/30/21 16:22 09/30/21 19:58 Ondansetron 2 Mg/Ml Sdv 2 Ml IVP 4 mg Q8H PRN Administration vomiting, or N/V if npo Pantoprazole Sodium 40 mg 10/01/21 09:00 10/01/21 09:[address] 40 Mg Tablet PO Not Given DAILY FRANCESCA PFSH Anesthesia Medical History (Updated 09/30/21 @ 16:43 by Brandon Santana MD) Chronic bronchitis, obstructive Essential hypertension GERD (gastroesophageal reflux disease) KAREN (obstructive sleep apnea) Surgical History History of colonoscopy with polypectomy (05/23/20) History of esophagogastroduodenoscopy (EGD) (05/23/20) Gastritis is duodenitis History of neck surgery S/P cataract surgery Social History Smoking and tobacco status: former smoker Alcohol intake: never Data Anesthesia : 10/01/21 03:26 10/01/21 03:26 Short CBC 09/30/21 10/01/21 Range/Units 13:12 03:26 WBC 13.5 H 12.0 H (4.0-10.0) 10^3/uL Hgb 12.5 11.1 L (11.7-16.6) g/dL Hct 37.7 L 34.2 L (42.0-52.0) % MCV 95.4 H 96.3 H (80-94) fl Plt Count 312 269 (130-400) 10^3/cmm Neut % (Auto) 74.1 72.3 % Neut # (Auto) 10.02 H 8.68 H (1.8-7.7) 10^3/uL BMP 09/30/21 10/01/21 13:12 03:26 Sodium 133 L 136 Potassium 4.1 4.1 Chloride 96 L 97 L Carbon Dioxide 27 26 BUN 28 H 30 H Creatinine 1.0 1.2 Glucose 131 H 135 H Calcium 9.7 9.0 Coags 09/30/21 14:19 PT 13.40 INR 0.99 APTT 30.0 Cardiac Studies: No Data to Display
[2021-10-01] MEDS: acetaminophen 1,000 MG/100 ML PIGGYBACK 400 MG IV (11:05)
--- NOTE | 2021-10-01 11:06 | PM.PN ---
Subjective Subjective: Patient was seen and examined this morning, rt hip pain is better controlled on current pain regimen. His other vitals and labs have been reviewed. Medications: Medication Review Details: Generic Name Dose Route Start Last Admin Trade Name Freq PRN Reason Stop Dose Admin Docusate Sodium 100 mg 09/30/21 18:00 10/01/21 09:09 Docusate Sodium 100 Mg Capsule PO Not Given BID FRANCESCA Enoxaparin Sodium 40 mg 10/01/21 07:00 10/01/21 04:36 Enoxaparin 40 Mg /0.4 Ml Syringe SUBCUT Not Given Q24H FRANCESCA Hydrochlorothiazid e 25 mg 10/01/21 06:00 10/01/21 04:36 Hydrochlorothiaz mikala 25 Mg Tablet PO Not Given QAM [facility] Sodium Chloride 1,000 mls @ 75 ml s/hr 10/01/21 14:20 10/01/21 14:47 Sodium Chloride 0.9% IV 75 mls/hr .[id number] FRANCESCA Administration Metoprolol Tartrat e 50 mg 09/30/21 18:00 10/01/21 09:03 Metoprolol Tartr ate 50 Mg Tablet PO 50 mg BID FRANCESCA Administration Morphine Sulfate 2 mg 09/30/21 16:22 10/01/21 08:59 Morphine 4 Mg/Ml Sdv 1 Ml IVP 2 mg Q4H PRN Administration SEVERE PAIN Non-Formulary Medi cation 61 mg 10/01/21 09:00 10/01/21 09:09 Magnesium Aspart ate Hcl PO Not Given DAILY FRANCESCA Ondansetron HCl 4 mg 09/30/21 16:22 09/30/21 19:58 Ondansetron 2 Mg /Ml Sdv 2 Ml IVP 4 mg Q8H PRN Administration vomiting, or N/V if npo Pantoprazole Sodiu m 40 mg 10/01/21 09:00 10/01/21 09:[address] 40 Mg Tablet PO Not Given DAILY [facility] Vitals/I&O/Wt Last Vital Signs Temp 100.3 F H 10/01/21 10:00 Pulse 80 10/01/21 10:00 Resp 18 10/01/21 10:00 BP 122/76 10/01/21 10:00 Pulse Ox 96 10/01/21 10:00 09/30/21 10/01/21 10/01/21 22:59 06:59 14:59 Intake Total 240 / 240 0 / 0 Output Total 400 / 400 Balance 240 / 240 -400 / -160 0 / 0 Weight last 48 hrs Weight 77.111 kg Weight 77.111 kg Physical Exam Const: COMMON NORMALS: patient oriented x3 HENMT: COMMON NORMALS: normocephalic and atraumatic HEAD & SCALP: normocephalic and atraumatic Chest: COMMONS NORMALS: normal inspection of the chest and normal palpation of entire chest wall CHEST: Yes Symmetrical chest wall rise Resp: COMMON NORMALS: normal respiratory effort, No retractions, No use of accessory muscles and clear to auscultation bilaterally EFFORT & INSPECTION: Yes symmetric chest movement AUSCULTATION: clear to auscultation bilaterally Cardio: COMMON NORMALS: regular rate, regular rhythm, S1 normal heart sound present, S2 normal heart sound present, No gallops present (Cardio), No murmurs present (Cardio), No rub (Cardio) and Peripheral pulses 2+ throughout RATE: regular rate RHYTHM: regular rhythm HEART SOUNDS: S1 normal heart sound present and S2 normal heart sound present PERIPHERAL PULSES: Peripheral pulses 2+ throughout GI: COMMON NORMALS: Normal to inspection, nondistended, normoactive bowel sounds present, Soft to palpation, non-tender, No hepatosplenomegaly present and no masses AUSCULTATION: Yes normoactive bowel sounds PALPATION: Yes Soft to palpation and Yes No hepatosplenomegaly present RECTAL EXAM: Yes deferred Extremity: COMMON NORMALS: no clubbing, cyanosis or edema and no pedal edema Neuro: COMMON NORMALS: patient oriented x3 Urinary Catheter Management: Lin: Cath Placed During This Visit: yes Reason for Continuing Indwelling Catheter: Required Immobilization for Trauma or Surgery or Anesthesia Urinary Catheter Date of Insertion: 09/30/21 Urinary Catheter Time of Insertion: 15:00 Data : 10/01/21 03:26 10/01/21 03:26 A&P Assessment and plan (1) Closed intertrochanteric fracture of right hip: Status: Acute (2) Essential hypertension: Status: Acute (3) KAREN (obstructive sleep apnea): Status: Acute (4) Leukocytosis: Status: Acute Plan Assessment: # Closed intertrochanteric fracture of right hip: Pain control Laxatives PT OT Orthopedic on board #Leukocytosis: Likely reactive Xray chest: No acute findings. Follow urinalysis Low clinical suspicion for infection Continue to monitor #Hypertension: Continue hydrochlorothiazide and metoprolol #Obstructive sleep apnea #DVT prophylaxis: On Lovenox #CODE STATUS: Full code Attestations Medical Necessity Statement*: In Hospital for management of Closed intertrochanteric fracture of right hip. Coding Level of Care Code Acute Order Packer for [facility] Fwd Exam Detailed Diagnoses Closed intertrochanteric fracture of right hip S72.141A Essential hypertension I10 KAREN (obstructive sleep apnea) G47.33 Leukocytosis D72.829
[2021-10-01] MEDS: sodium chloride 0.9% 1,000 ML 30 ML IV (11:22)
--- NOTE | 2021-10-01 11:44 | PC.NURSE ---
Pt is out of the room for surgery.
--- NOTE | 2021-10-01 12:07 | PC.CHAP ---
Pastoral Care Encounter/Spiritual Assessment Type of Contact [] Declined community facilitator visit [] Patient/Family/Request visit [] Outpatient visit [] Follow-up visit [] Physician referral [] Code/Alert [x] Routine visit [] Staff referral [] Actively dying [] Patient sleeping [] Family support [] [] Out of room [] Palliative care [] [] Receiving care in room [] Pre-surgical visit [] Trauma [] Long length of stay [] ICU visit [] Other: Relational/Emotional Strength [x] Patient feels connected with others/family/visitors/staff [] Distress [] Loneliness/isolation [] Abandonment Spirituality of Patient [x Person of Maru [x] Attends Rastafarian of their Maru [x] Believes in Prayer [] Reads Bible or Taoism materials [] There are Spiritual issues to be addressed Head Mixer Interventions [x] Prayer []x Active listening [x] Non-anxious presence x[] Spiritual/emotional support [] Crisis/trauma care [] Spiritual counseling [] Bereavement support [] Provided bereavement packet [] Provided Bible/devotional materials [] Provided toy/stuffed animal, coloring book to patient or family member [] Provided Communion [] Anointing/[place] [] Salvation [x] Completed spiritual assessment [] Other: Impact on Illness or Injury [] Angry [] Fearful [] Anxious [] Often cries [] Exhaustion [] Unable to work [] Unable to attend church [] Unable to walk/stand [] Unable to read [] Unable to drive [] Unable to eat/drink [] Unable to sleep [] Unable to be with family [] Patient intubated [] Other: Summary Time spent with patient 10 min
--- NOTE | 2021-10-01 13:24 | PM.OP ---
Operative Report Date of procedure: October 01, 2021 Pre-op diagnosis: Preop Diagnosis Screening, dysphagia Post-op diagnosis: same Procedure done: Open reduction internal fixation right hip with intramedullary device Implants: Vivian gamma nail jose Vivian gamma nail 13 x 400 mm, 105 mm lag screw Estimated blood loss (mL): 50 Findings: The patient had a comminuted consisting of greater and lesser trochanter fragments as well as the shaft and head neck fragment. Condition: stable Disposition: PACU Procedure: The patient was taken to the operating room. They were given 1 g of Ancef. They were positioned on the fracture table with the right lower extremity in gentle traction. A timeout was performed. A 2 cm long incision was made proximal to the greater trochanter scalpel blade. Dissection was carried down to tip the greater trochanter. A guidepin was passed manually from the tip of the trochanter down the shaft. The proximal reamer was utilized to open up the proximal canal. An 13 mm 400 mm Blanchard gamma nail was passed down the canal without difficulty. Under visualization of fluoroscopy a guidepin was driven up into the head and neck at 125? angle. It was measured at [address] with the proximal locking screw. Pressure was applied across the lag screw wrench and the leg screw locked in place. Intraoperative imaging was obtained verifying satisfactory position of the hardware and reduction of the fracture. Deep tissues were closed with 0 Vicryl and subcutaneous tissue with 2-0 Vicryl. The skin was closed with a running 4-0 Stratafix suture. sterile Op-site dressings were applied. The patient was extubated and taken to recovery room in stable condition.
[2021-10-01] MEDS: HYDROmorphone 1 mg/mL INJ 1 mL 0.5 MG IVP (13:59)
--- NOTE | 2021-10-01 14:37 | ANE.PACU2 ---
Inpatient post-anesthesia follow up: Airway intact: Yes Vital signs: Temperature 97.6 F Pulse Rate 77 Respiratory Rate 18 Blood Pressure 116/68 Pulse Oximetry 91 Oxygen Delivery Me thod Room Air Oxygen Flow Rate Fraction of Inspir ed Oxygen Hydration adequate: Yes Nausea and vomiting: No Pain level: 2 Mental status: Baseline
[2021-10-01] MEDS: sodium chloride 0.9% 1,000 ML 75 ML IV (14:47)
[2021-10-01 17:33] LABS: Bilirubin Urine Neg (Negative); Blood Urine 3+ (Negative); Glucose Urine UA Norm (Normal); Ketones Urine Negative (Negative); Nitrate Urine Negative (Negative); Protein Urine Trace (Negative); Urine Appearance SL Hazy (CLEAR); Urine Color Yellow (Yellow); Urobilinogen Urine Norm (Negative); pH Urine 5 (5-7)
[2021-10-01 17:34] LABS: Add Urine Microscopic? YES; Leukocyte Esterase Urine 2+ (Negative)
[2021-10-01 17:35] LABS: Bacteria Urine 1+ /hpf; Mucus Urine 1+ /hpf; RBC Urine 15-25 /hpf (0-2); Squamous Epithelial Cell Urine 0-4 /hpf (0-5); WBC Urine 15-25 /hpf (0-5)
[2021-10-01 17:36] LABS: Add Urine Culture? Yes
[2021-10-01] MEDS: docusate sodium 100 mg Capsule PO (17:59)
[2021-10-01] MEDS: acetaminophen 325 mg Tablet 650 MG PO (18:00)
[2021-10-01] MEDS: HYDROcodone-acetaminophen 5-325 mg Tablet 1 TAB PO (19:08)
[2021-10-02 02:44] LABS: Basophils % 0.2 %; Eosinophils % 0.1 %; Hematocrit 31.1 % (42.0-52.0); Hemoglobin 10.1 g/dL (11.7-16.6); Lymphocytes # 1.2 10^3/uL (0.8-4.8); Lymphocytes % 6.8 %; Mean Corpuscular HGB Conc 32.5 g/dL (30.0-36.0); Mean Corpuscular Hemoglobin 31.6 pg (28.0-34.0); Mean Corpuscular Volume 97.2 fl (80-94); Mean Platelet Volume 10.1 fL (7.4-10.4); Monocytes # 1.2 10^3/uL (0.2-0.9); Monocytes % 6.8 %; Neutrophils # 14.53 10^3/uL (1.8-7.7); Neutrophils % 85.5 %; Nucleated Red Blood Cells % 0 %; Platelet Count 228 10^3/cmm (130-400); Red Cell Distribution Width 13.1 % (12.1-15.1)
[2021-10-02 03:02] LABS: Anion Gap 14.3 (5-19); Blood Urea Nitrogen 34 mg/dL (8-23); Calcium 8.8 mg/dL (8.5-10.5); Carbon Dioxide 27 mmol/L (22-29); Chloride 100 mmol/L (98-107); Glucose 154 mg/dL (65-115); Osmolality Calculated 295 mOsm/kg (285-295); Potassium 4.3 mmol/L (3.5-5.1); Sodium 137 mmol/L (136-145)
[2021-10-02] MEDS: sodium chloride 0.9% 1,000 ML 75 ML IV ×2 (04:04→18:50)
[2021-10-02 04:39] VITALS: BP 114/72; PULSE 96; RESP 18; TEMP 37.3; O2SAT 97
[2021-10-02] MEDS: enoxaparin 40 mg/0.4 mL Syringe SUBCUT (06:26)
[2021-10-02] MEDS: hydroCHLOROthiazide 25 mg Tablet PO (06:26)
[2021-10-02] MEDS: HYDROcodone-acetaminophen 5-325 mg Tablet 1 TAB PO ×4 (07:37→20:08)
[2021-10-02] MEDS: docusate sodium 100 mg Capsule PO ×2 (07:38→18:50)
[2021-10-02] MEDS: pantoprazole DR 40 mg Tablet PO (07:38)
[2021-10-02 07:51] VITALS: BP 118/69; PULSE 99; RESP 18; TEMP 36.9; O2SAT 98
[2021-10-02 11:44] VITALS: BP 110/64; PULSE 86; RESP 18; TEMP 36.8; O2SAT 98
--- NOTE | 2021-10-02 14:34 | P.PN_ITS ---
Subjective Subjective: Patient was seen and examined this morning, rt hip pain is better controlled on current pain regimen. Medications: Medication Review Details: Generic Name Dose Route Start Last Admin Trade Name Freq PRN Reason Stop Dose Admin Docusate Sodium 100 mg 09/30/21 18:00 10/01/21 09:09 Docusate Sodium 100 Mg Capsule PO Not Given BID FRANCESCA Enoxaparin Sodium 40 mg 10/01/21 07:00 10/01/21 04:36 Enoxaparin 40 Mg /0.4 Ml Syringe SUBCUT Not Given Q24H FRANCESCA Hydrochlorothiazid e 25 mg 10/01/21 06:00 10/01/21 04:36 Hydrochlorothiaz mikala 25 Mg Tablet PO Not Given QAM FRANCESCA Sodium Chloride 1,000 mls @ 75 ml s/hr 10/01/21 14:20 10/01/21 14:47 Sodium Chloride 0.9% IV 75 mls/hr .[id number] FRANCESCA Administration Metoprolol Tartrat e 50 mg 09/30/21 18:00 10/01/21 09:03 Metoprolol Tartr ate 50 Mg Tablet PO 50 mg BID FRANCESCA Administration Morphine Sulfate 2 mg 09/30/21 16:22 10/01/21 08:59 Morphine 4 Mg/Ml Sdv 1 Ml IVP 2 mg Q4H PRN Administration SEVERE PAIN Non-Formulary Medi cation 61 mg 10/01/21 09:00 10/01/21 09:09 Magnesium Aspart ate Hcl PO Not Given DAILY FRANCESCA Ondansetron HCl 4 mg 09/30/21 16:22 09/30/21 19:58 Ondansetron 2 Mg /Ml Sdv 2 Ml IVP 4 mg Q8H PRN Administration vomiting, or N/V if npo Pantoprazole Sodiu m 40 mg 10/01/21 09:00 10/01/21 09:[address] 40 Mg Tablet PO Not Given DAILY FRANCESCA Vitals/I&O/Wt Last Vital Signs Temp 98.2 F 10/02/21 11:44 Pulse 86 10/02/21 11:44 Resp 18 10/02/21 11:44 BP 110/64 10/02/21 11:44 Pulse Ox 98 10/02/21 11:44 10/01/21 10/02/21 10/02/21 22:59 06:59 14:59 Intake Total 1140 / 1900 1496.25 / 3396.25 480 / 480 Output Total 300 / 750 500 / 1250 Balance 840 / 1150 996.25 / 2146.25 480 / 480 Weight last 48 hrs Weight 77.111 kg Physical Exam Const: COMMON NORMALS: patient oriented x3 HENMT: COMMON NORMALS: normocephalic and atraumatic HEAD & SCALP: normocephalic and atraumatic Chest: COMMONS NORMALS: normal inspection of the chest and normal palpation of entire chest wall CHEST: Yes Symmetrical chest wall rise Resp: COMMON NORMALS: normal respiratory effort, No retractions, No use of accessory muscles and clear to auscultation bilaterally EFFORT & INSPECTION: Yes symmetric chest movement AUSCULTATION: clear to auscultation bilaterally Cardio: COMMON NORMALS: regular rate, regular rhythm, S1 normal heart sound present, S2 normal heart sound present, No gallops present (Cardio), No murmurs present (Cardio), No rub (Cardio) and Peripheral pulses 2+ throughout RATE: regular rate RHYTHM: regular rhythm HEART SOUNDS: S1 normal heart sound present and S2 normal heart sound present PERIPHERAL PULSES: Peripheral pulses 2+ throughout GI: COMMON NORMALS: Normal to inspection, nondistended, normoactive bowel sounds present, Soft to palpation, non-tender, No hepatosplenomegaly present and no masses AUSCULTATION: Yes normoactive bowel sounds PALPATION: Yes Soft to palpation and Yes No hepatosplenomegaly present RECTAL EXAM: Yes deferred Extremity: COMMON NORMALS: no clubbing, cyanosis or edema and no pedal edema Neuro: COMMON NORMALS: patient oriented x3 Urinary Catheter Management: Lin: Cath Placed During This Visit: yes Reason for Continuing Indwelling Catheter: Required Immobilization for Trauma or Surgery or Anesthesia Urinary Catheter Date of Insertion: 09/30/21 Urinary Catheter Time of Insertion: 15:00 Data : 10/02/21 02:05 10/02/21 02:05 A&P Assessment and plan (1) Closed intertrochanteric fracture of right hip: Status: Acute (2) Essential hypertension: Status: Acute (3) KAREN (obstructive sleep apnea): Status: Acute (4) Leukocytosis: Status: Acute Plan Assessment: # Closed intertrochanteric fracture of right hip:S/P Open reduction internal fixation right hip with intramedullary device Pain control Laxatives PT OT Orthopedic on board #Leukocytosis: Likely reactive Xray chest: No acute findings. Follow urinalysis Low clinical suspicion for infection Continue to monitor #UTI: Follow urine culture Continue Rocephin #Hypertension: Continue hydrochlorothiazide and metoprolol #Obstructive sleep apnea #DVT prophylaxis: On Lovenox #CODE STATUS: Full code #Disposition: Placement to SNF Attestations Medical Necessity Statement*: Patient is to be in hospital for postop care, UTI, awaiting placement to SNF. Coding Level of Care Code Acute Manager Planning for patricio Fwd Diagnoses Closed intertrochanteric fracture of right hip S72.141A Essential hypertension I10 KAREN (obstructive sleep apnea) G47.33 Leukocytosis D72.829
[2021-10-02] MEDS: cefTRIAXone 1,000 MG in sodium chloride 0.9% (plus) 50 ML 100 MG IV (15:52)
--- NOTE | 2021-10-02 17:17 | PM.PN ---
Subjective Subjective: Pain much better after surgery. No complaints Vitals/I&O/Wt Last Vital Signs Temp 98.2 F 10/02/21 11:44 Pulse 86 10/02/21 11:44 Resp 18 10/02/21 11:44 BP 110/64 10/02/21 11:44 Pulse Ox 98 10/02/21 11:44 10/02/21 10/02/21 10/02/21 06:59 14:59 22:59 Intake Total 1496.25 / 3396.25 540 / 540 Output Total 500 / 1250 Balance 996.25 / 2146.25 540 / 540 Physical Exam Narrative: Right hip dressings clean and dry. Expected swelling right thigh. Urinary Catheter Management: Lin: Cath Placed During This Visit: yes Reason for Continuing Indwelling Catheter: Required Immobilization for Trauma or Surgery or Anesthesia Urinary Catheter Date of Insertion: 09/30/21 Urinary Catheter Time of Insertion: 15:00 Data : 10/02/21 02:05 10/02/21 02:05 A&P Assessment and plan (1) Closed intertrochanteric fracture of right hip: Status: Acute (2) Status post open reduction and internal fixation (ORIF) of fracture: Patient up with therapy planning half-way transfer when bed available. 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
--- NOTE | 2021-10-02 17:34 | PC.NURSE ---
Patient is refusing to allow me to take his Lin Catheter out at this time. Spoke to Dr. Agee who states that it is okay to leave the Lin at this time. The catheter was difficult to place ad the patient already has trouble with voiding.
[2021-10-02] MEDS: metoprolol tartrate 50 mg Tablet PO (18:50)
[2021-10-02 19:52] VITALS: BP 127/75; PULSE 113; RESP 19; TEMP 36.9; O2SAT 95
[2021-10-03] VITALS (8 sets, daily range): BP systolic 112–153; BP diastolic 63–76; PULSE 84–101; RESP 16–18; TEMP 36.7–37.7; O2SAT 90–99
[2021-10-03 02:17] LABS: Basophils % 0.3 %; Eosinophils # 0.4 10^3/uL (0.0-0.8); Hematocrit 26.3 % (42.0-52.0); Hemoglobin 8.6 g/dL (11.7-16.6); Lymphocytes # 1.6 10^3/uL (0.8-4.8); Lymphocytes % 13.1 %; Mean Corpuscular HGB Conc 32.7 g/dL (30.0-36.0); Mean Corpuscular Hemoglobin 31.9 pg (28.0-34.0); Mean Corpuscular Volume 97.4 fl (80-94); Mean Platelet Volume 9.8 fL (7.4-10.4); Monocytes % 8.1 %; Neutrophils # 9.08 10^3/uL (1.8-7.7); Neutrophils % 74.7 %; Nucleated Red Blood Cells % 0 %; Platelet Count 178 10^3/cmm (130-400); Red Cell Distribution Width 13.2 % (12.1-15.1); White Blood Count 12.2 10^3/uL (4.0-10.0)
[2021-10-03 02:48] LABS: Anion Gap 13.3 (5-19); Blood Urea Nitrogen 31 mg/dL (8-23); Calcium 8.5 mg/dL (8.5-10.5); Carbon Dioxide 24 mmol/L (22-29); Chloride 100 mmol/L (98-107); Glucose 129 mg/dL (65-115); Osmolality Calculated 286 mOsm/kg (285-295); Potassium 3.3 mmol/L (3.5-5.1); Sodium 134 mmol/L (136-145)
[2021-10-03] MEDS: hydroCHLOROthiazide 25 mg Tablet PO (06:35)
[2021-10-03] MEDS: enoxaparin 40 mg/0.4 mL Syringe SUBCUT (06:36)
[2021-10-03] MEDS: docusate sodium 100 mg Capsule PO ×2 (07:52→17:12)
[2021-10-03] MEDS: HYDROcodone-acetaminophen 5-325 mg Tablet 1 TAB PO ×4 (07:52→22:24)
[2021-10-03] MEDS: pantoprazole DR 40 mg Tablet PO (07:52)
[2021-10-03] MEDS: metoprolol tartrate 50 mg Tablet PO ×2 (07:54→17:12)
--- NOTE | 2021-10-03 10:44 | PM.PN ---
Subjective Subjective: Patient was seen and examined this morning, no acute events. Medications: Medication Review Details: Generic Name Dose Route Start Last Admin Trade Name Freq PRN Reason Stop Dose Admin Docusate Sodium 100 mg 09/30/21 18:00 10/01/21 09:09 Docusate Sodium 100 Mg Capsule PO Not Given BID FRANCESCA Enoxaparin Sodium 40 mg 10/01/21 07:00 10/01/21 04:36 Enoxaparin 40 Mg /0.4 Ml Syringe SUBCUT Not Given Q24H FRANCESCA Hydrochlorothiazid e 25 mg 10/01/21 06:00 10/01/21 04:36 Hydrochlorothiaz mikala 25 Mg Tablet PO Not Given QAM FRANCESCA Sodium Chloride 1,000 mls @ 75 ml s/hr 10/01/21 14:20 10/01/21 14:47 Sodium Chloride 0.9% IV 75 mls/hr .[id number] FRANCESCA Administration Metoprolol Tartrat e 50 mg 09/30/21 18:00 10/01/21 09:03 Metoprolol Tartr ate 50 Mg Tablet PO 50 mg BID FRANCESCA Administration Morphine Sulfate 2 mg 09/30/21 16:22 10/01/21 08:59 Morphine 4 Mg/Ml Sdv 1 Ml IVP 2 mg Q4H PRN Administration SEVERE PAIN Non-Formulary Medi cation 61 mg 10/01/21 09:00 10/01/21 09:09 Magnesium Aspart ate Hcl PO Not Given DAILY FRANCESCA Ondansetron HCl 4 mg 09/30/21 16:22 09/30/21 19:58 Ondansetron 2 Mg /Ml Sdv 2 Ml IVP 4 mg Q8H PRN Administration vomiting, or N/V if npo Pantoprazole Sodiu m 40 mg 10/01/21 09:00 10/01/21 09:[address] 40 Mg Tablet PO Not Given DAILY [facility] Vitals/I&O/Wt Last Vital Signs Temp 99.9 F H 10/03/21 07:54 Pulse 101 H 10/03/21 07:54 Resp 18 10/03/21 07:54 BP 153/76 10/03/21 07:54 Pulse Ox 95 10/03/21 07:54 10/02/21 10/03/21 10/03/21 22:59 06:59 14:59 Intake Total 1530 / 2070 440 / 2510 120 / 120 Output Total 300 / 300 800 / 1100 Balance 1230 / 1770 -360 / 1410 120 / 120 Physical Exam Const: COMMON NORMALS: patient oriented x3 HENMT: COMMON NORMALS: normocephalic and atraumatic HEAD & SCALP: normocephalic and atraumatic Chest: COMMONS NORMALS: normal inspection of the chest and normal palpation of entire chest wall CHEST: Yes Symmetrical chest wall rise Resp: COMMON NORMALS: normal respiratory effort, No retractions, No use of accessory muscles and clear to auscultation bilaterally EFFORT & INSPECTION: Yes symmetric chest movement AUSCULTATION: clear to auscultation bilaterally Cardio: COMMON NORMALS: regular rate, regular rhythm, S1 normal heart sound present, S2 normal heart sound present, No gallops present (Cardio), No murmurs present (Cardio), No rub (Cardio) and Peripheral pulses 2+ throughout RATE: regular rate RHYTHM: regular rhythm HEART SOUNDS: S1 normal heart sound present and S2 normal heart sound present PERIPHERAL PULSES: Peripheral pulses 2+ throughout GI: COMMON NORMALS: Normal to inspection, nondistended, normoactive bowel sounds present, Soft to palpation, non-tender, No hepatosplenomegaly present and no masses AUSCULTATION: Yes normoactive bowel sounds PALPATION: Yes Soft to palpation and Yes No hepatosplenomegaly present RECTAL EXAM: Yes deferred Extremity: COMMON NORMALS: no clubbing, cyanosis or edema and no pedal edema Neuro: COMMON NORMALS: patient oriented x3 Urinary Catheter Management: Lin: Cath Placed During This Visit: yes Reason for Continuing Indwelling Catheter: Required Immobilization for Trauma or Surgery or Anesthesia Urinary Catheter Date of Insertion: 09/30/21 Urinary Catheter Time of Insertion: 15:00 Data : 10/03/21 01:53 10/03/21 01:53 Micro: Microbiology 10/01/21 14:25 Urine Culture - Final Urine,Clean Catch A&P Assessment and plan (1) Closed intertrochanteric fracture of right hip: Status: Acute (2) Essential hypertension: Status: Acute (3) KAREN (obstructive sleep apnea): Status: Acute (4) Leukocytosis: Status: Acute Plan Assessment: # Closed intertrochanteric fracture of right hip:S/P Open reduction internal fixation right hip with intramedullary device Pain control Laxatives PT OT Orthopedic on board #Leukocytosis: Likely reactive Xray chest: No acute findings. Follow urinalysis Low clinical suspicion for infection Continue to monitor #UTI: urine culture:No growth Continue Rocephin will complete 5 day course of abxs. On Discharge Levofloxacin po #Hypertension: Continue hydrochlorothiazide and metoprolol #Hypokalemia : Monitor and replace potassium #Obstructive sleep apnea #DVT prophylaxis: On Lovenox #CODE STATUS: Full code #Disposition: Placement to SNF Attestations Medical Necessity Statement*: Patient is to be in hospital for postop care, UTI, awaiting placement to SNF. 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
--- NOTE | 2021-10-03 11:08 | PC.SOCIAL ---
IMM Update Pg. 2 of IMM updated and reviewed with patient, who verbalized understanding. Copy provided.
[2021-10-03] MEDS: potassium chloride ER 20 mEq Tablet PO (11:19)
--- NOTE | 2021-10-03 12:24 | P.PN_ITS ---
Subjective Subjective: Pain better. Still slow with physical therapy. Vitals/I&O/Wt Last Vital Signs Temp 99.9 F H 10/03/21 07:54 Pulse 84 10/03/21 11:53 Resp 18 10/03/21 11:53 BP 130/67 10/03/21 11:53 Pulse Ox 98 10/03/21 11:53 10/02/21 10/03/21 10/03/21 22:59 06:59 14:59 Intake Total 1530 / 2070 440 / 2510 1120 / 1120 Output Total 300 / 300 800 / 1100 Balance 1230 / 1770 -360 / 1410 1120 / 1120 Physical Exam Narrative: Right hip dressings clean and dry. Minimal swelling right thigh. Urinary Catheter Management: Lin: Cath Placed During This Visit: yes Reason for Continuing Indwelling Catheter: Required Immobilization for Trauma or Surgery or Anesthesia Urinary Catheter Date of Insertion: 09/30/21 Urinary Catheter Time of Insertion: 15:00 Data : 10/03/21 01:53 10/03/21 01:53 Micro: Microbiology 10/01/21 14:25 Urine Culture - Final Urine,Clean Catch A&P Assessment and plan (1) Status post open reduction and internal fixation (ORIF) of fracture: Continue physical therapy. Uncertain if he will be sufficiently mobile for discharge home. Certainly not sufficiently mobile at this time Status: Acute (2) Closed intertrochanteric fracture of right hip: Status: Acute Attestations Medical Necessity Statement*: Not sufficiently mobile for discharge home. Will possibly need SNF. Coding Level of Care Code Acute Specialized Developer for Faye Nick Diagnoses Status post open reduction and internal fixation (ORIF) of fracture Z98.890; Z87.81 Closed intertrochanteric fracture of right hip S72.141A
[2021-10-03] MEDS: cefTRIAXone 1,000 MG in sodium chloride 0.9% (plus) 50 ML 100 MG IV (15:52)
[2021-10-04 03:52] VITALS: BP 130/69; PULSE 101; RESP 16; TEMP 37.2; O2SAT 91
[2021-10-04] MEDS: enoxaparin 40 mg/0.4 mL Syringe SUBCUT (06:15)
[2021-10-04] MEDS: hydroCHLOROthiazide 25 mg Tablet PO (06:15)
[2021-10-04] MEDS: HYDROcodone-acetaminophen 5-325 mg Tablet 1 TAB PO ×2 (06:20→11:16)
[2021-10-04 07:58] VITALS: BP 121/65; PULSE 105; RESP 18; TEMP 37.2; O2SAT 91
[2021-10-04] MEDS: pantoprazole DR 40 mg Tablet PO (08:23)
[2021-10-04] MEDS: docusate sodium 100 mg Capsule PO (08:23)
[2021-10-04] MEDS: metoprolol tartrate 50 mg Tablet PO (08:23)
--- NOTE | 2021-10-04 09:15 | PC.NURSE ---
In room to take patient's Lin Catheter out at this time. Patient is requesting to stay another night and to have his catheter out then before he leaves.
[2021-10-04 09:28] VITALS: PULSE 103; O2SAT 91
[2021-10-04 11:25] VITALS: BP 117/77; PULSE 87; RESP 16; TEMP 36.9; O2SAT 96
--- NOTE | 2021-10-04 14:03 | PM.PN ---
Subjective Subjective: Patient was seen and examined this morning, no acute events. Medications: Medication Review Details: Generic Name Dose Route Start Last Admin Trade Name Freq PRN Reason Stop Dose Admin Docusate Sodium 100 mg 09/30/21 18:00 10/01/21 09:09 Docusate Sodium 100 Mg Capsule PO Not Given BID FRANCESCA Enoxaparin Sodium 40 mg 10/01/21 07:00 10/01/21 04:36 Enoxaparin 40 Mg /0.4 Ml Syringe SUBCUT Not Given Q24H FRANCESCA Hydrochlorothiazid e 25 mg 10/01/21 06:00 10/01/21 04:36 Hydrochlorothiaz mikala 25 Mg Tablet PO Not Given QAM FRANCESCA Sodium Chloride 1,000 mls @ 75 ml s/hr 10/01/21 14:20 10/01/21 14:47 Sodium Chloride 0.9% IV 75 mls/hr .[id number] FRANCESCA Administration Metoprolol Tartrat e 50 mg 09/30/21 18:00 10/01/21 09:03 Metoprolol Tartr ate 50 Mg Tablet PO 50 mg BID FRANCESCA Administration Morphine Sulfate 2 mg 09/30/21 16:22 10/01/21 08:59 Morphine 4 Mg/Ml Sdv 1 Ml IVP 2 mg Q4H PRN Administration SEVERE PAIN Non-Formulary Medi cation 61 mg 10/01/21 09:00 10/01/21 09:09 Magnesium Aspart ate Hcl PO Not Given DAILY [facility] Ondansetron HCl 4 mg 09/30/21 16:22 09/30/21 19:58 Ondansetron 2 Mg /Ml Sdv 2 Ml IVP 4 mg Q8H PRN Administration vomiting, or N/V if npo Pantoprazole Sodiu m 40 mg 10/01/21 09:00 10/01/21 09:[address] 40 Mg Tablet PO Not Given DAILY [facility] Vitals/I&O/Wt Last Vital Signs Temp 98.5 F 10/04/21 11:25 Pulse 87 10/04/21 11:25 Resp 16 10/04/21 11:25 BP 117/77 10/04/21 11:25 Pulse Ox 96 10/04/21 11:25 10/03/21 10/04/21 10/04/21 22:59 06:59 14:59 Intake Total 440 / 1800 600 / 2400 440 / 440 Output Total 750 / 750 450 / 1200 Balance -310 / 1050 150 / 1200 440 / 440 Physical Exam Const: COMMON NORMALS: patient oriented x3 HENMT: COMMON NORMALS: normocephalic and atraumatic HEAD & SCALP: normocephalic and atraumatic Chest: COMMONS NORMALS: normal inspection of the chest and normal palpation of entire chest wall CHEST: Yes Symmetrical chest wall rise Resp: COMMON NORMALS: normal respiratory effort, No retractions, No use of accessory muscles and clear to auscultation bilaterally EFFORT & INSPECTION: Yes symmetric chest movement AUSCULTATION: clear to auscultation bilaterally Cardio: COMMON NORMALS: regular rate, regular rhythm, S1 normal heart sound present, S2 normal heart sound present, No gallops present (Cardio), No murmurs present (Cardio), No rub (Cardio) and Peripheral pulses 2+ throughout RATE: regular rate RHYTHM: regular rhythm HEART SOUNDS: S1 normal heart sound present and S2 normal heart sound present PERIPHERAL PULSES: Peripheral pulses 2+ throughout GI: COMMON NORMALS: Normal to inspection, nondistended, normoactive bowel sounds present, Soft to palpation, non-tender, No hepatosplenomegaly present and no masses AUSCULTATION: Yes normoactive bowel sounds PALPATION: Yes Soft to palpation and Yes No hepatosplenomegaly present RECTAL EXAM: Yes deferred Extremity: COMMON NORMALS: no clubbing, cyanosis or edema and no pedal edema Neuro: COMMON NORMALS: patient oriented x3 Urinary Catheter Management: Lin: Cath Placed During This Visit: yes Reason for Continuing Indwelling Catheter: Required Immobilization for Trauma or Surgery or Anesthesia Urinary Catheter Date of Insertion: 09/30/21 Urinary Catheter Time of Insertion: 15:00 Data : 10/03/21 01:53 10/03/21 01:53 Micro: Microbiology 10/01/21 14:25 Urine Culture - Final Urine,Clean Catch A&P Assessment and plan (1) Closed intertrochanteric fracture of right hip: Status: Acute (2) Essential hypertension: Status: Acute (3) KAREN (obstructive sleep apnea): Status: Acute (4) Leukocytosis: Status: Acute Plan Assessment: # Closed intertrochanteric fracture of right hip:S/P Open reduction internal fixation right hip with intramedullary device Pain control Laxatives PT OT Orthopedic on board #Leukocytosis: Likely reactive Xray chest: No acute findings. Follow urinalysis Low clinical suspicion for infection Continue to monitor #UTI: urine culture:No growth Continue Rocephin will complete 5 day course of abxs. On Discharge Levofloxacin po #Hypertension: Continue hydrochlorothiazide and metoprolol #Hypokalemia : Monitor and replace potassium #Obstructive sleep apnea #DVT prophylaxis: On Lovenox #CODE STATUS: Full code #Disposition: Placement to SNF Attestations Medical Necessity Statement*: Per primary team. Coding Level of Care Code Acute Solution Developer for Faye Nick Diagnoses Closed intertrochanteric fracture of right hip S72.141A Essential hypertension I10 KAREN (obstructive sleep apnea) G47.33 Leukocytosis D72.829
--- NOTE | 2021-10-04 14:06 | PM.DCS ---
Discharge Providers Date of Admission: 09/30/21 13:50 Date of Discharge: October 04, 2021 Attending Provider at Admission: Brandon Santana MD Attending Provider at Discharge: Brandon Santana MD Primary Care Provider: Cecile Johnston MD Diagnoses at Discharge Discharge Diagnosis (1) Closed intertrochanteric fracture of right hip: Status: Acute (2) Essential hypertension: Status: Acute (3) KAREN (obstructive sleep apnea): Status: Acute (4) Leukocytosis: Status: Acute Reason for Visit Reason for Visit: RIGHT HIP AND KNEE PAIN S/P FALL Hospital Course Hospital Course 76-year-old male past medical history of hypertension was admitted after he slipped and fell on ice. He was admitted for the management of: Closed intertrochanteric fracture of right hip:S/P Open reduction internal fixation right hip with intramedullary device, during the hospital stay patient worked with PT Pain control was done. He was also managed for leukocytosis likely reactive, UTI: Urine culture showed no growth, and was empirically kept on IV antibiotic and was discharged on p.o. antibiotics. He was also managed for his hypertension. He was continued on HCTZ and metoprolol. Patient responded well to medical management and was discharged stable condition to home he will follow orthopedic as an outpatient. Physical Exam Const: COMMON NORMALS: patient oriented x3 HENMT: COMMON NORMALS: normocephalic and atraumatic HEAD & SCALP: normocephalic and atraumatic Chest: COMMONS NORMALS: normal inspection of the chest and normal palpation of entire chest wall CHEST: Yes Symmetrical chest wall rise Resp: COMMON NORMALS: normal respiratory effort, No retractions, No use of accessory muscles and clear to auscultation bilaterally EFFORT & INSPECTION: Yes symmetric chest movement AUSCULTATION: clear to auscultation bilaterally Cardio: COMMON NORMALS: regular rate, regular rhythm, S1 normal heart sound present, S2 normal heart sound present, No gallops present (Cardio), No murmurs present (Cardio), No rub (Cardio) and Peripheral pulses 2+ throughout RATE: regular rate RHYTHM: regular rhythm HEART SOUNDS: S1 normal heart sound present and S2 normal heart sound present PERIPHERAL PULSES: Peripheral pulses 2+ throughout GI: COMMON NORMALS: Normal to inspection, nondistended, normoactive bowel sounds present, Soft to palpation, non-tender, No hepatosplenomegaly present and no masses AUSCULTATION: Yes normoactive bowel sounds PALPATION: Yes Soft to palpation and Yes No hepatosplenomegaly present RECTAL EXAM: Yes deferred Extremity: COMMON NORMALS: no clubbing, cyanosis or edema and no pedal edema Neuro: COMMON NORMALS: patient oriented x3 Urinary Catheter Management: Lin: Cath Placed During This Visit: yes Reason for Continuing Indwelling Catheter: Required Immobilization for Trauma or Surgery or Anesthesia Urinary Catheter Date of Insertion: 09/30/21 Urinary Catheter Time of Insertion: 15:00 Discharge Data Studies Completed and Pending Completed Studies During Hospitalization Category Date Time Status CT head wo con* [id number] Urgent Cat Scan 09/30/21 13:06 Completed CXRP [XR chest 1V portable [id number]] Urgent Exams 09/30/21 13:29 Completed XR femur RT min 2V* [id number] Routine Exams 10/01/21 Completed XR hip RT 2-3V wo/w pel* [id number] Urgent Exams 09/30/21 12:52 Completed XR knee RT 1-2V [id number] Urgent Exams 09/30/21 12:52 Completed Radiology Impressions Hip/Pelvis X-Ray 09/30/21 12:52 IMPRESSION: Displaced comminuted intertrochanteric fracture right hip Knee X-Ray 09/30/21 12:52 IMPRESSION: 1. No acute bone abnormalities 2. 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 No acute intracranial abnormality. 2. Chronic sinusitis Chest X-Ray 09/30/21 13:29 IMPRESSION: 1. No acute findings. 2. Metallic hardware cervical spine Femur X-Ray 10/01/21 00:00 IMPRESSION: Images obtained for intraoperative purposes. Laboratory Results WBC 12.2 10^3/uL (4.0-10.0) H 10/03/21 01:53 RBC 2.70 10^6/uL (4.1-5.3) L 10/03/21 01:53 Hgb 8.6 g/dL (11.7-16.6) L 10/03/21 01:53 Hct 26.3 % (42.0-52.0) L 10/03/21 01:53 MCV 97.4 fl (80-94) H 10/03/21 01:53 MCH 31.9 pg (28.0-34.0) 10/03/21 01:53 MCHC 32.7 g/dL (30.0-36.0) 10/03/21 01:53 RDW 13.2 % (12.1-15.1) 10/03/21 01:53 Plt Count 178 10^3/cmm (130-400) 10/03/21 01:53 MPV 9.8 fL (7.4-10.4) 10/03/21 01:53 Neut % (Auto) 74.7 % 10/03/21 01:53 Lymph % (Auto) 13.1 % 10/03/21 01:53 [place] % (Auto) 8.1 % 10/03/21 01:53 Eos % (Auto) 3.0 % 10/03/21 01:53 Baso % (Auto) 0.3 % 10/03/21 01:53 Neut # (Auto) 9.08 10^3/uL (1.8-7.7) H 10/03/21 01:53 Lymph # (Auto) 1.6 10^3/uL (0.8-4.8) 10/03/21 01:53 [place] # (Auto) 1.0 10^3/uL (0.2-0.9) H 10/03/21 01:53 Eos # (Auto) 0.4 10^3/uL (0.0-0.8) 10/03/21 01:53 Baso # (Auto) 0.0 10^3/uL (0.0-0.1) 10/03/21 01:53 Nucleated RBC % (auto) 0 % 10/03/21 01:53 Nucleated RBCs # 0.0 /100WBC 10/03/21 01:53 PT 13.40 SECONDS (12.1-14.9) 09/30/21 14:19 INR 0.99 (0.8-1.2) 09/30/21 14:19 APTT 30.0 SECONDS (23.9-36.7) 09/30/21 14:19 Sodium 134 mmol/L (136-145) L 10/03/21 01:53 Potassium 3.3 mmol/L (3.5-5.1) L 10/03/21 01:53 Chloride 100 mmol/L (98-107) 10/03/21 01:53 Carbon Dioxide 24 mmol/L (22-29) 10/03/21 01:53 Anion Gap 13.3 (5-19) 10/03/21 01:53 BUN 31 mg/dL (8-23) H 10/03/21 01:53 Creatinine 1.0 mg/dL (0.7-1.2) 10/03/21 01:53 GFR Calculation Not Reportable 10/03/21 01:53 Glucose 129 mg/dL (65-115) H 10/03/21 01:53 Calculated Osmolality 286 mOsm/kg (285-295) 10/03/21 01:53 Calcium 8.5 mg/dL (8.5-10.5) 10/03/21 01:53 Urine Color Yellow (Yellow) 10/01/21 14:25 Urine Appearance Sl hazy (CLEAR) 10/01/21 14:25 Urine pH 5 (5-7) 10/01/21 14:25 Ur Specific [place] 1.020 (1.005-1.030) 10/01/21 14:25 Urine Protein Trace (Negative) 10/01/21 14:25 Urine Glucose (UA) Norm (Normal) 10/01/21 14:25 Urine Ketones Negative (Negative) 10/01/21 14:25 Urine Blood 3+ (Negative) H 10/01/21 14:25 Urine Nitrate Negative (Negative) 10/01/21 14:25 Urine Bilirubin Neg (Negative) 10/01/21 14:25 Urine Urobilinogen Norm mg/dL (Negative) 10/01/21 14:25 Ur Leukocyte Esterase 2+ (Negative) H 10/01/21 14:25 Urine RBC 15-25 /hpf (0-2) H 10/01/21 14:25 Urine WBC 15-25 /hpf (0-5) H 10/01/21 14:25 Ur Squamous Epith Cells 0-4 /hpf (0-5) H 10/01/21 14:25 Amorphous Sediment Not Reportable 10/01/21 14:25 Urine Bacteria 1+ /hpf (NONE) H 10/01/21 14:25 Urine Mucus 1+ /hpf 10/01/21 14:25 Vitals Last Vital Signs Temp 98.5 F 10/04/21 11:25 Pulse 87 10/04/21 11:25 Resp 16 10/04/21 11:25 BP 117/77 10/04/21 11:25 Pulse Ox 96 10/04/21 11:25 Discharge Plan Discharge Patient Disposition: Home Condition: Stable Prescriptions: New levofloxacin 500 mg tablet 500 mg PO DAILY 5 Days Qty: 5 0RF hydrocodone-acetaminophen 5-325 mg Tablet 1 tab PO Q4H PRN (Reason: Moderate Pain) 7 Days Qty: 20 0RF Continued magnesium aspartate HCl 61 mg (615 mg) tablet,delayed release (DR/EC) 61 mg PO DAILY 0RF Protonix 40 mg tablet,delayed release (DR/EC) 40 mg PO DAILY 90 Days Qty: 90 3RF hydrochlorothiazide 25 mg tablet 25 mg PO QAM Qty: 90 3RF Zyrtec 10 mg Tablet 10 mg PO DAILY PRN (Reason: Allergy Symptoms) 0RF metoprolol tartrate 50 mg tablet 50 mg PO BID 0RF Discharge Orders: Discharge Order (Routine); Ordered 10/04/21 Ordered By: Earnest Hull Referrals: [facility] [Outside] Cecile Johnston MD [Primary Care Provider] - 10/08/21 2:30 pm Brandon Santana MD [Physician] - 11/07/21 1:45 pm Discharge Diet: Low Salt Discharge Activity: Limit activity as instructed Patient Instructions: Hip Fracture (GEN), Opioid Safety Activity Restrictions/Additional Instructions: May weight bear as tolerated right lower extremity OK to shower Discharge Attestations Time Spent in Discharge Care*: greater than 30 min Specific Discharge Activities: educating patient, educating and/or supporting family/caregiver, discussing with pcp/other providers, discussing with corrections caseworker/social workers/dc planners, documenting/other paperwork and evaluating patient/reviewing data Quality Metrics Clinical Quality Measures [ No reported AMI, CVA or VTE this stay] Coding Level of Care Code Acute Chg FW DC note Diagnoses Closed intertrochanteric fracture of right hip S72.141A Essential hypertension I10 KAREN (obstructive sleep apnea) G47.33 Leukocytosis D72.829
[2021-10-04 14:24] VITALS: BP 117/77; PULSE 87; RESP 16; TEMP 36.9; O2SAT 96
--- NOTE | 2021-10-04 14:25 | PC.NURSE ---
IV removed intact. Patient tolerated well. Patient IS A&Ox3. Respirations even and non-labored on room air. Reviewed patient's discharge with patient and at this time. Patient and verbalized understanding of discharge instructions and how to take medications. Patient wheel chaired to private car at this time.
== END 2021-10-04 14:00 | disposition home health service (06) | DRG 481 ==
LOC: ER 13:40 → MEDSURG 14:40
PROVIDERS: Internal Medicine; Admitting Provider Orthopaedic Surgery; Emergency Provider Emergency Medicine; PCP Family Medicine; Visit Provider Orthopaedic Surgery
PROC: 0QS606Z Reposition Right Upper Femur with Intramedullary Internal Fixation Device, Open Approach (ICD-10-PCS; CPT 27245; principal; 2021-10-01 12:20)
DX: S72.141A Displaced intertrochanteric fracture of right femur, initial encounter for closed fracture (principal); N39.0 Urinary tract infection, site not specified; W00.0XXA Fall on same level due to ice and snow, initial encounter; J42 Unspecified chronic bronchitis; I10 Essential (primary) hypertension; K21.9 Gastro-esophageal reflux disease without esophagitis; G47.33 Obstructive sleep apnea (adult) (pediatric); Z87.891 Personal history of nicotine dependence
CPT/HCPCS: 36415; 51702; 70450; 71045; 73502; 73552; 73560; 76000; 80048; 81001; 85025; 85610; 85730; 87086; 93005; 96372; 97110; 97116; 97161; 97165; 97530; 99285; C1713; J0690; J0696; J1170; J1650; J2270; J2405; J2704; J3010; J3490; J7030

== ENCOUNTER 2021-10-08 15:30 | Emergency (ER) | payer MEDICARE, SELFPAY ==
[2021-10-08 15:45] VITALS: BP 150/79; PULSE 95; RESP 18; TEMP 36.9; O2SAT 97; BMI 26.6
--- NOTE | 2021-10-08 15:46 | ECG_ITS ---
[facility] Test Date: 2021-10-08 Pat Name: Seb Spangler Department: Room: Gender: Male Senior Living Advisor: : 1945 Requested By: Dominic Partida Order Number: [id number] Narinder MD: Tabatha Cummins M.D. Measurements Intervals [place] Rate: 93 P: 55 MT: 152 QRS: 5 QRSD: 109 T: 20 QT: 363 QTc: 453 Interpretive Statements SINUS RHYTHM WITH OCCASIONAL VENTRICULAR PREMATURE COMPLEXES Compared to ECG 09/30/2021 15:12:20 Ventricular premature complex(es) now present T-wave abnormality no longer present Electronically Signed On 10-08-2021 20:20:56 OUTBOUND SALES ADVISOR by Tabatha Cummins M.D. [email or web address]
--- NOTE | 2021-10-08 16:12 | W.ED.GENADLT ---
HPI - General Adult General: Chief complaint: General Medical Stated complaint: [facility] Time Seen by Provider: 10/08/21 15:47 Source: patient Mode of arrival: ambulatory Limitations: no limitations History of Present Illness: 76-year-old male presents emergency room complaining of weakness lightheadedness and dizziness headache. Patient hip surgery last week was discharged 3 days later hemoglobin was low at the time but still greater than [address] Johnston on follow-up today and I had a hisxa-fe-asde testing and a hemoglobin of 6.5 he was increasingly symptomatic of his anemia referred to the emergency room. No chest pain or shortness of breath Onset (ago): day(s) Severity: moderate Relieving factors: rest Exacerbating factors: movement Associated symptoms: Reports weakness; Deny chest pain, confusion, cough, diaphoresis, decreased appetite, dyspnea, fevers/chills, headache(s), malaise, nausea, rash, palpitations, seizures, short of breath, syncope or vomiting Treatments prior to arrival: none Review of Systems Const: Denies: malaise or diaphoresis ENMT: Denies: throat pain, ear or mastoid pain, nasal discharge or nasal congestion Card: Denies: chest pain, palpitations or syncope Resp: Denies: dyspnea GI: Denies: nausea or vomiting : Denies: flank pain, dysuria, urinary frequency or urinary urgency Skin/Breast: Denies: rash Neuro: Denies: headache(s) or confusion PFSH ED PFSH: Medical History Acute hip pain Acute knee pain Chronic bronchitis, obstructive Closed intertrochanteric fracture Closed intertrochanteric fracture of right hip Essential hypertension Fall GERD (gastroesophageal reflux disease) Leukocytosis KAREN (obstructive sleep apnea) Surgical History History of colonoscopy with polypectomy (05/23/20) History of esophagogastroduodenoscopy (EGD) (05/23/20) Gastritis is duodenitis History of neck surgery S/P cataract surgery Status post open reduction and internal fixation (ORIF) of fracture Social History Smoking and tobacco status: former smoker Alcohol intake: never Physical Exam Const: GENERAL APPEARANCE: cooperative and comfortable ORIENTATION/CONSCIOUSNESS: Yes awake, Yes oriented to person, Yes oriented to place and Yes oriented to time HENMT: COMMON NORMALS: normocephalic, atraumatic, hearing grossly normal bilaterally, external ears normal, EAC's normal, TM's normal bilaterally and Normal nasal mucous membranes and turbinates present HEAD & SCALP: normocephalic and atraumatic NOSE: Normal nasal mucous membranes and turbinates present EXTERNAL EAR: Yes external ears normal EXTERNAL AUDITORY CANAL: EAC's normal TYMPANIC MEMBRANE: TM's normal bilaterally Eye: COMMON NORMALS: Equal, round and reactive pupils present, EOMs intact bilaterally, conjunctivae normal and no scleral icterus CONJUNCTIVA: Yes conjunctivae normal PUPIL: Yes Equal, round and reactive pupils present Neck/C-Spine: COMMON NORMALS: no JVD Lymph: LYMPHATIC: no lymphadenopathy noted and no lymphedema noted Resp: COMMON NORMALS: normal respiratory effort, No retractions, No use of accessory muscles and clear to auscultation bilaterally AUSCULTATION: clear to auscultation bilaterally Cardio: COMMON NORMALS: no JVD, regular rate, regular rhythm and No murmurs present (Cardio) RATE: regular rate RHYTHM: regular rhythm GI: COMMON NORMALS: Soft to palpation and No hepatosplenomegaly present AUSCULTATION: Yes normoactive bowel sounds PALPATION: Yes Soft to palpation, No Tenderness to palpation present (GI), No Guarding due to palpation present (GI) and Yes No hepatosplenomegaly present Extremity: COMMON NORMALS: normal to inspection, capillary refill normal, no clubbing, cyanosis or edema, no calf tenderness and no pedal edema Neuro: SENSORIUM/ORIENTATION: Yes oriented to person, Yes oriented to place and Yes oriented to time Skin: COMMON NORMALS: no rashes or lesions noted GENERAL SKIN EXAM: no rashes or lesions noted Course Vital Signs: Vital signs: Vital Signs Temperature 98.5 F 10/08/21 18:23 Pulse Rate 91 10/08/21 18:23 Respiratory Rate 17 10/08/21 18:23 Blood Pressure 145/78 10/08/21 18:23 Pulse Oximetry 98 10/08/21 18:23 [facility] - General Adult Medical Decision Making Repeat hemoglobin is 9.6. His vital signs are stable we will go ahead and discharge him home.Prior to surgery his hemoglobin was in the 12-1/2-13 range I think he probably is mildly symptomatic even from the 9.6. Not sure why there is such a significant discrepancy actually less than an hour difference. We will go and discharge him home have him follow-up with a repeat hemoglobin with Dr. Johnston within the next 2 days. At this point he does not require hospitalization his vital signs are stable does not require transfusion. Medical Records I reviewed the patient's medical records. Lab Data I reviewed the patient's lab results. : 10/08/21 16:24 10/08/21 16:24 Laboratory Results WBC 13.8 10^3/uL (4.0-10.0) H 10/08/21 16:24 RBC 3.00 10^6/uL (4.1-5.3) L 10/08/21 16:24 Hgb 9.6 g/dL (11.7-16.6) L 10/08/21 16:24 Hct 29.7 % (42.0-52.0) L 10/08/21 16:24 MCV 99.0 fl (80-94) H 10/08/21 16:24 MCH 32.0 pg (28.0-34.0) 10/08/21 16:24 MCHC 32.3 g/dL (30.0-36.0) 10/08/21 16:24 RDW 13.2 % (12.1-15.1) 10/08/21 16:24 Plt Count 375 10^3/cmm (130-400) 10/08/21 16:24 MPV 9.8 fL (7.4-10.4) 10/08/21 16:24 Neut % (Auto) 71.0 % 10/08/21 16:24 Lymph % (Auto) 19.0 % 10/08/21 16:24 [place] % (Auto) 7.6 % 10/08/21 16:24 Eos % (Auto) 1.7 % 10/08/21 16:24 Baso % (Auto) 0.7 % 10/08/21 16:24 Neut # (Auto) 9.03 10^3/uL (1.8-7.7) H 10/08/21 16:24 Lymph # (Auto) 2.6 10^3/uL (0.8-4.8) 10/08/21 16:24 [place] # (Auto) 1.1 10^3/uL (0.2-0.9) H 10/08/21 16:24 Eos # (Auto) 0.2 10^3/uL (0.0-0.8) 10/08/21 16:24 Baso # (Auto) 0.1 10^3/uL (0.0-0.1) 10/08/21 16:24 Nucleated RBC % (auto) 0 % 10/08/21 16:24 Nucleated RBCs # 0.0 /100WBC 10/08/21 16:24 Sodium 137 mmol/L (136-145) 10/08/21 16:24 Potassium 3.7 mmol/L (3.5-5.1) 10/08/21 16:24 Chloride 97 mmol/L (98-107) L 10/08/21 16:24 Carbon Dioxide 28 mmol/L (22-29) 10/08/21 16:24 Anion Gap 15.7 (5-19) 10/08/21 16:24 BUN 31 mg/dL (8-23) H 10/08/21 16:24 Creatinine 0.9 mg/dL (0.7-1.2) 10/08/21 16:24 GFR Calculation Not Reportable 10/08/21 16:24 Glucose 117 mg/dL (65-115) H 10/08/21 16:24 Calculated Osmolality 292 mOsm/kg (285-295) 10/08/21 16:24 Calcium 9.6 mg/dL (8.5-10.5) 10/08/21 16:24 Total Bilirubin 0.6 mg/dL (0.15-1.2) 10/08/21 16:24 AST 30 U/L (0-40) 10/08/21 16:24 ALT 19 U/L (0-41) 10/08/21 16:24 Alkaline Phosphatase 106 IU/L (40-130) 10/08/21 16:24 Total Protein 7.0 g/dL (6.6-8.7) 10/08/21 16:24 Albumin 3.6 g/dL (3.5-5.2) 10/08/21 16:24 Globulin 3.4 g/dL (1.3-4.6) 10/08/21 16:24 Blood Type O Positive 10/08/21 16:24 Rho(D) Type Positive 10/08/21 16:24 Antibody Screen Negative 10/08/21 16:24 Discharge Plan Discharge Patient Disposition: Home Clinical Impression: Anemia, S/P total hip arthroplasty Condition: Stable Prescriptions: No Action Protonix 40 mg tablet,delayed release (DR/EC) 40 mg PO DAILY 90 Days Qty: 90 3RF hydrochlorothiazide 25 mg tablet 25 mg PO QAM Qty: 90 3RF cetirizine [Zyrtec] 10 mg Tablet 10 mg PO DAILY PRN (Reason: Allergy Symptoms) 0RF metoprolol tartrate 50 mg tablet 50 mg PO BID 0RF hydrocodone-acetaminophen 5-325 mg Tablet 1 tab PO Q4H PRN (Reason: Moderate Pain) 7 Days Qty: 20 0RF red yeast rice 600 mg Tablet 600 mg PO DAILY 0RF Rx Instructions: give with meal/snack magnesium oxide 400 mg magnesium Tablet 400 mg PO BID 0RF Discharge Orders: Discharge ED (Routine); Ordered 10/08/21 Ordered By: Dominic Key Referrals: Cecile Johnston MD [Primary Care Provider] - Discharge Diet: Usual diet Discharge Activity: Increase activity as tolerated Patient Instructions: Opioid Safety Activity Restrictions/Additional Instructions: Recheck home hemoglobin in 2 days at your primary care doctors office. Coding Level of Care Code ED Mixing Pan Tender for Faye Fwd Exam Comprehensive
[2021-10-08 16:43] LABS: Basophils # 0.1 10^3/uL (0.0-0.1); Basophils % 0.7 %; Eosinophils # 0.2 10^3/uL (0.0-0.8); Eosinophils % 1.7 %; Hematocrit 29.7 % (42.0-52.0); Hemoglobin 9.6 g/dL (11.7-16.6); Lymphocytes # 2.6 10^3/uL (0.8-4.8); Mean Corpuscular HGB Conc 32.3 g/dL (30.0-36.0); Mean Platelet Volume 9.8 fL (7.4-10.4); Monocytes # 1.1 10^3/uL (0.2-0.9); Monocytes % 7.6 %; Neutrophils # 9.03 10^3/uL (1.8-7.7); Nucleated Red Blood Cells % 0 %; Platelet Count 375 10^3/cmm (130-400); Red Cell Distribution Width 13.2 % (12.1-15.1); White Blood Count 13.8 10^3/uL (4.0-10.0)
[2021-10-08 17:02] LABS: Slide Review Slide Review Perform
[2021-10-08 17:11] LABS: Alanine Aminotransferase 19 U/L (0-41); Albumin Level 3.6 g/dL (3.5-5.2); Alkaline Phosphatase 106 IU/L (40-130); Blood Urea Nitrogen 31 mg/dL (8-23); Calcium 9.6 mg/dL (8.5-10.5); Carbon Dioxide 28 mmol/L (22-29); Chloride 97 mmol/L (98-107); Globulin 3.4 g/dL (1.3-4.6); Glucose 117 mg/dL (65-115); Osmolality Calculated 292 mOsm/kg (285-295); Sodium 137 mmol/L (136-145); Total Bilirubin 0.6 mg/dL (0.15-1.2)
[2021-10-08 17:21] LABS: Anion Gap 15.7 (5-19); Aspartate Amino Transferase 30 U/L (0-40); Potassium 3.7 mmol/L (3.5-5.1)
[2021-10-08 17:41] VITALS: RESP 17
[2021-10-08] MEDS: morphine 4 mg/mL SDV 1 mL 2 MG IVP (17:41)
[2021-10-08] MEDS: ondansetron 2 mg/ML SDV 2 mL 4 MG IVP (17:43)
[2021-10-08 17:47] VITALS: BP 145/78; PULSE 91; RESP 17; TEMP 36.9; O2SAT 98
[2021-10-08 18:04] VITALS: BP 113/67; BP 128/80; BP 144/75; PULSE 90; PULSE 91
[2021-10-08 18:23] VITALS: BP 145/78; PULSE 91; RESP 17; TEMP 36.9; O2SAT 98
== END 2021-10-08 18:29 | disposition home or self-care (01) ==
PROVIDERS: Emergency Provider Family Medicine; PCP Family Medicine
DX: D64.9 Anemia, unspecified (principal); Z96.649 Presence of unspecified artificial hip joint; I10 Essential (primary) hypertension; Z87.891 Personal history of nicotine dependence; Z98.890 Other specified postprocedural states
CPT/HCPCS: 80053; 85018; 85025; 86850; 86900; 93005; 96374; 96375; 99284; J2270; J2405

== ENCOUNTER → 2021-10-16 15:58 | Outpatient (BNVA) | payer MEDICARE, SELFPAY | PROVIDERS: PCP Family Medicine; Visit Provider Podiatrist Foot & Ankle Surgery | DX: M25.571 Pain in right ankle and joints of right foot (principal); M19.071 Primary osteoarthritis, right ankle and foot; Z46.89 Encounter for fitting and adjustment of other specified devices | CPT/HCPCS: 73610; 85025; 97760; L1902 ==

== ENCOUNTER 2021-10-16 16:33 | Outpatient (CLI) | payer MEDICARE, SELFPAY | END 2021-10-16 16:34 | disposition home or self-care (01) | LOC: SPT 16:33 | PROVIDERS: PCP Family Medicine; Visit Provider Podiatrist Foot & Ankle Surgery | DX: Z46.89 Encounter for fitting and adjustment of other specified devices (principal); M25.571 Pain in right ankle and joints of right foot | CPT/HCPCS: 85025; 97760; L1902 ==

== ENCOUNTER → 2021-11-07 13:53 | Outpatient (BNVA) | payer MEDICARE, SELFPAY | PROVIDERS: PCP Family Medicine; Visit Provider Orthopaedic Surgery | DX: M17.11 Unilateral primary osteoarthritis, right knee (principal); Z98.890 Other specified postprocedural states; S72.141D Displaced intertrochanteric fracture of right femur, subsequent encounter for closed fracture with routine healing; X58.XXXD Exposure to other specified factors, subsequent encounter | CPT/HCPCS: 20610; 73502; 99024; J0702; J3490 ==

== ENCOUNTER 2021-12-05 07:48 | Outpatient (CLI) | payer MEDICARE, SELFPAY ==
--- NOTE | 2021-12-05 07:56 | USCV_ITS ---
Seb Spangler Age: 76 Gender: M : 1945 Exam Date: 12/05/2021 08:03 Ordering Phys: Cony Perez Technologist: Exam Location: [facility] – [place] Indication: pre op BP: 123 / 71 HR: 79 Rhythm: Sinus Technical Quality: Adequate MEASUREMENTS (Male / Female) Normal Values 2D ECHO LV Diastolic Diameter PLAX 3.9 cm 4.2 - 5.9 / 3.9 - 5.3 cm LV Systolic Diameter PLAX 2.9 cm IVS Diastolic Thickness 1.1 cm 0.6 - 1.0 / 0.6 - 0.9 cm IVS Systolic Thickness 1.3 cm LVPW Diastolic Thickness 1.1 cm 0.6 - 1.0 / 0.6 - 0.9 cm LVPW Systolic Thickness 1.4 cm LVOT Diameter 2.0 cm LV Ejection Fraction 2D Teich 43.2 % LV Ejection Fraction MOD 2C 66.8 % LV Ejection Fraction 2C AL 65.2 % LA Diameter 3.3 cm Aorta at Sinotubular Diameter 3.0 cm M-MODE Aortic Annulus Diameter 3.6 cm LA Ao Ratio MM 1.0 MV E Point Septal Separation 4.4 cm DOPPLER AV Peak Velocity 188.7 cm/s LVOT Peak Velocity 95.0 cm/s AV Area Cont Eq vti 1.7 cm squared AV Area Cont Eq pk 1.6 cm squared MV Area PHT 5.0 cm squared Mitral E to A Ratio 0.9 MV E' Velocity 49.0 cm/s Mitral E to MV E' Ratio 10.3 Mitral E to LV E' Lateral Ratio 9.9 Mitral E to LV E' Septal Ratio 10.6 TR Peak Velocity 183.0 cm/s TR Peak Gradient 13.4 mmHg TV Peak E Velocity 98.0 cm/s Right Atrial Pressure 3.0 mmHg Pulmonary Artery Systolic Pressu 16.4 mmHg PV Peak Velocity 71.0 cm/s FINDINGS Left Ventricle Normal left ventricular size, systolic function and wall thickness, with no regional wall motion abnormalities. Grade I/IV diastolic dysfunction (abnormal relaxation filling pattern), normal to mildly elevated filling pressures. Left ventricular ejection fraction is estimated at 60 %. Right Ventricle Normal right ventricular size and systolic function. Normal right ventricular systolic pressure. Right Atrium The right atrium is normal in size. Left Atrium The left atrium is normal in size. Mitral Valve Structurally normal mitral valve. Trace mitral valve regurgitation. Aortic Valve Structurally normal trileaflet aortic valve. [id number] aortic valve regurgitation. Tricuspid Valve Structurally normal tricuspid valve. Trace tricuspid valve regurgitation. Pulmonic Valve Pulmonic valve not well visualized. Pericardium Normal pericardium without effusion. Aorta Normal ascending aorta dimension. CONCLUSIONS Normal left ventricular size, systolic function and wall thickness, with no regional wall motion abnormalities. Grade I/IV diastolic dysfunction (abnormal relaxation filling pattern), normal to mildly elevated filling pressures. Left ventricular ejection fraction is estimated at 60 %. Structurally normal mitral valve. Trace mitral valve regurgitation. Structurally normal trileaflet aortic valve. [id number] aortic valve regurgitation. There are no prior echocardiogram studies to compare. Dr. Hakeem Hernandez MD (Electronically Signed) Final Date: 05 Dec 2021 09:15 S
== END 2021-12-05 07:49 | disposition home or self-care (01) ==
PROVIDERS: PCP Family Medicine; Visit Provider Nurse Practitioner Family
DX: R10.11 Right upper quadrant pain (principal)
CPT/HCPCS: 93306

== ENCOUNTER 2022-02-06 06:00 | Outpatient (RCR) | payer MEDICARE, SELFPAY | END 2022-03-03 23:59 | disposition home or self-care (01) | LOC: SPT 06:00 | PROVIDERS: PCP Family Medicine; Referring Provider Ophthalmology; Visit Provider Ophthalmology | DX: Z47.1 Aftercare following joint replacement surgery (principal); Z96.641 Presence of right artificial hip joint | CPT/HCPCS: 97161 ==

== ENCOUNTER 2022-07-04 06:00 | Outpatient (RCR) | payer MEDICARE, SELFPAY | END 2022-08-03 23:59 | disposition home or self-care (01) | LOC: SPT 06:00 | PROVIDERS: PCP Family Medicine; Visit Provider Student in an Organized Health Care Education/Training Program | DX: Z96.651 Presence of right artificial knee joint (principal) | CPT/HCPCS: 97110; 97161; 97530 ==

== ENCOUNTER 2022-08-04 06:00 | Outpatient (RCR) | payer MEDICARE, SELFPAY | END 2022-08-08 23:59 | disposition home or self-care (01) | LOC: SPT 06:00 | PROVIDERS: PCP Family Medicine; Visit Provider Student in an Organized Health Care Education/Training Program | DX: Z96.651 Presence of right artificial knee joint (principal) | CPT/HCPCS: 97110 ==

== ENCOUNTER → 2022-12-03 14:08 | Outpatient (BNVA) | payer MEDICARE, SELFPAY | PROVIDERS: PCP Family Medicine; Visit Provider Podiatrist Foot & Ankle Surgery | DX: S93.491D Sprain of other ligament of right ankle, subsequent encounter (principal); M76.821 Posterior tibial tendinitis, right leg; X58.XXXD Exposure to other specified factors, subsequent encounter | CPT/HCPCS: 99213 ==

== ENCOUNTER → 2023-03-11 12:59 | Outpatient (BNVA) | payer MEDICARE, SELFPAY | PROVIDERS: PCP Family Medicine; Visit Provider Podiatrist Foot & Ankle Surgery | DX: S93.491D Sprain of other ligament of right ankle, subsequent encounter (principal); M76.821 Posterior tibial tendinitis, right leg; X58.XXXD Exposure to other specified factors, subsequent encounter | CPT/HCPCS: 99213 ==

== ENCOUNTER 2023-08-08 11:40 | Outpatient (CLI) | payer MEDICARE, SELFPAY ==
--- NOTE | 2023-08-08 11:46 | USCV_ITS ---
Seb Spangler Age: 78 Gender: M : 1945 Exam Date: 08/08/2023 11:56 Ordering Phys: Raffaele Conroy MD Technologist: Exam Location[place] [facility] [place] Indication: CHEST PAIN BP: 138 / 76 HR: 63 Rhythm: Sinus Technical Quality: Adequate MEASUREMENTS (Male / Female) Normal Values 2D ECHO LV Diastolic Diameter PLAX 3.9 cm 4.2 - 5.9 / 3.9 - 5.3 cm LV Systolic Diameter PLAX 2.1 cm IVS Diastolic Thickness 1.1 cm 0.6 - 1.0 / 0.6 - 0.9 cm IVS Systolic Thickness 1.3 cm LVPW Diastolic Thickness 1.0 cm 0.6 - 1.0 / 0.6 - 0.9 cm LVPW Systolic Thickness 1.3 cm LVOT Diameter 2.0 cm LV Ejection Fraction 2D Teich 74.8 % LV Ejection Fraction MOD 2C 80.0 % LV Ejection Fraction 2C AL 80.7 % LA Diameter 3.6 cm IVC Diameter 1.6 cm M-MODE Aortic Annulus Diameter 3.8 cm LA Ao Ratio MM 1.0 MV E Point Septal Separation 1.1 cm DOPPLER AV Peak Velocity 240.0 cm/s LVOT Peak Velocity 81.0 cm/s AV Area Cont Eq vti 1.5 cm squared AV Area Cont Eq pk 1.1 cm squared MV Area PHT 3.1 cm squared Mitral E to A Ratio 0.9 MV E' Velocity 54.5 cm/s Mitral E to MV E' Ratio 15.0 Mitral E to LV E' Lateral Ratio 13.2 Mitral E to LV E' Septal Ratio 17.6 TR Peak Velocity 187.3 cm/s TR Peak Gradient 14.0 mmHg TV Peak E Velocity 78.0 cm/s Right Atrial Pressure 3.0 mmHg Pulmonary Artery Systolic Pressu 17.0 mmHg RV Acceleration Time 0.2 s FINDINGS Left Ventricle Left ventricle is normal in size. LV systolic function is normal with EF 60 to 65%. No regional wall motion abnormalities are seen. Grade 1 diastolic dysfunction Right Ventricle Normal in size and function Right Atrium Normal in size Left Atrium Normal in size Mitral Valve Structurally normal mitral valve. Trace mitral regurgitation Aortic Valve Aortic valve is thickened and calcified. Mild aortic stenosis with aortic valve area 1.46 cm squared and mean gradient of 10 mmHg. Trace aortic regurgitation Tricuspid Valve Mild tricuspid regurgitation. Pulmonary artery systolic pressure is normal. Pulmonic Valve Not well-visualized Pericardium Normal Aorta Normal in size IVC Appears to be normal CONCLUSIONS LV systolic function is normal with EF of 60 to 65%. Mild grade 1 diastolic dysfunction. Trace mitral regurgitation Mild aortic stenosis. Trace aortic regurgitation Mild tricuspid regurgitation Compared to prior echocardiogram from 2021, patient now has mild aortic stenosis. Dl Marks MD (Electronically Signed) Final Date: 09 August 2023 16:41 S
== END 2023-08-08 11:41 | disposition home or self-care (01) ==
LOC: RAD 11:42
PROVIDERS: PCP Family Medicine; Visit Provider Family Medicine
DX: R01.1 Cardiac murmur, unspecified (principal); R07.9 Chest pain, unspecified; I08.2 Rheumatic disorders of both aortic and tricuspid valves
CPT/HCPCS: 93306

== ENCOUNTER 2023-12-24 14:11 | Outpatient (CLI) | payer MEDICARE, SELFPAY ==
--- NOTE | 2023-12-24 14:19 | CT_ITS ---
WS: [id number] CT chest w con* [id number] HISTORY: LUNG LESION TECHNIQUE: Axial imaging performed through the thorax. Coronal and sagittal reformats are submitted. All CT scans at [facility] use at least one of these dose optimization techniques: automated exposure control; mA and/or kV adjustment per patient size (includes targeted exams where dose is mat ched to clinical indication); or iterative reconstruction. CONTRAST: Omnipaque 350; 100 mL IV. DLP: 306.41 mGy.cm COMPARISON: 11/10/2007 Lungs and central airway: Moderate pulmonary hyperexpansion from emphysema. Breathing motion artifact at the lung bases. Peripheral subsolid opacification at the RIGHT lung base measures 1.9 x 1.2 cm. M ild elevation of the LEFT diaphragm with minimal LEFT basilar atelectasis. There are a few stable nod ules clustered together in the LEFT lower lobe. Pleura: Normal. No pleural effusion. Heart and pericardium: Mild cardiomegaly. Extensive coronary artery calcifications. Heavy coronary ar zenobia calcification. No pericardial effusion. Mediastinum and ritesh: No mediastinum or hilar adenopathy. Vessels: Mild atherosclerosis aorta. Normal size pulmonary artery. Chest wall and lower neck: Subcentimeter nodule RIGHT thyroid measures 6 mm. Upper abdomen: Very small hiatal hernia. Mild hepatic steatosis. Incompletely visualized but previous ly described cyst associated with the RIGHT kidney now measures 9.4 x 8.0 cm. Continued suprarenal ao rtic calcification. There is debris and fluid fluid layer in the gallbladder. Osseous structures: Increase in thoracic kyphosis. CT/CT chest w con* [id number] IMPRESSION: 1. No prior recent studies at [facility] indicating a lung mass for which follow-up w as recommended. 2. Subsolid opacification at the RIGHT lung base. This may be inflammatory or low-grade neoplasm. Recommend follow-up chest CT with IV contrast in 6 to 12 mo nths. 3. Mild cardiomegaly with extensive coronary artery calcifications. 4. Long-term stability large RIGHT renal cyst.
[2023-12-24 15:11] LABS: Blood Urea Nitrogen 21 mg/dL (8-23)
[2023-12-24] MEDS: iohexol 350 mg/mL 500 mL Btl (per mL) IV (15:18)
== END 2023-12-24 14:12 | disposition home or self-care (01) ==
PROVIDERS: Radiology Neuroradiology; PCP Family Medicine; Visit Provider Family Medicine
DX: R91.8 Other nonspecific abnormal finding of lung field (principal); J43.9 Emphysema, unspecified; I51.7 Cardiomegaly; E04.1 Nontoxic single thyroid nodule; K76.0 Fatty (change of) liver, not elsewhere classified; N28.1 Cyst of kidney, acquired; K82.8 Other specified diseases of gallbladder; M40.204 Unspecified kyphosis, thoracic region
CPT/HCPCS: 71260; 82565; 84520; Q9967

== ENCOUNTER 2024-03-02 16:22 | Observation (INO) | payer MEDICARE, SELFPAY ==
[2024-03-02] VITALS (9 sets, daily range): BP systolic 129–173; BP diastolic 74–90; PULSE 60–80; RESP 14–20; TEMP 36.9; O2SAT 96–99; BMI 25.0
--- NOTE | 2024-03-02 16:25 | ECG_ITS ---
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 Measurements Intervals [place] Rate: 74 P: 45 ND: 172 QRS: 28 QRSD: 107 T: 240 QT: 365 QTc: 405 Interpretive Statements SINUS RHYTHM MODERATE T-WAVE ABNORMALITY, CONSIDER ANTEROLATERAL ISCHEMIA [-0.1+ mV T-WAVE IN V3-V6] Compared to ECG 10/08/2021 17:37:18 T-wave abnormality now present Possible ischemia now present Ventricular premature complex(es) no longer present Electronically Signed On 03-03-2024 6:27:10 CDT by Walker Marino M.D. [id number] f
--- NOTE | 2024-03-02 16:25 | XRR_ITS ---
PROCEDURE INFORMATION: Exam: XR Chest Exam date and time: 03/02/2024 4:30 PM Age: 78 years old Clinical indication: Pain; Chest pressure; Additional info: Cp TECHNIQUE: Imaging protocol: Radiologic exam of the chest. Views: 1 view. COMPARISON: 1. CT chest w con* [id number] 12/24/2023 3:09 PM 2. CR XR chest 1V portable [id number] 09/30/2021 1:27 PM FINDINGS: Lungs: Unremarkable. No consolidation. Pleural spaces: Unremarkable. No pleural effusion. No pneumothorax. Heart/Mediastinum: Unremarkable. No cardiomegaly. Diaphragm: There is stable elevation of the left hemidiaphragm. Bones/joints: No acute findings. A metallic plate is seen in the lower cervical spine. XR/XR chest 1V portable [id number] IMPRESSION: No acute findings.
--- NOTE | 2024-03-02 16:33 | ED_ITS ---
HPI - Chest Pain 2 General: Chief Complaint: Chest Pain Stated Complaint: Chest Pain Time Seen by Provider: 03/02/24 16:26 Source: patient and EMS Mode of arrival: EMS Limitations: no limitations History of Present Illness: 78-year-old male who states that he has been having intermittent chest pains over the last 2 days that has been a pressure type pain in the center of his chest with some nausea. He denies any shortness of breath patient's pain was resolved with nitro and aspirin in route by EMS. Denies any cough or fever Associated symptoms: Deny abdominal pain, dyspnea, fever(s), nausea or vomiting Review of Systems 2 Const: Denies: fever(s), chills, body aches or change in appetite ENMT: Denies: throat pain or dental pain Card: Reports: chest pain Resp: Denies: dyspnea GI: Denies: abdominal pain, nausea, vomiting or diarrhea Musc: Denies: neck pain or back pain Skin/Breast: Denies: rash Neuro: Denies: headache(s) PFSH ED 2 PFSH: Medical History Ankle pain, chronic Leukocytosis Closed intertrochanteric fracture of right hip Closed intertrochanteric fracture Acute knee pain Acute hip pain Fall GERD (gastroesophageal reflux disease) KAREN (obstructive sleep apnea) Chronic bronchitis, obstructive Essential hypertension Surgical History Status post open reduction and internal fixation (ORIF) of fracture History of colonoscopy with polypectomy (05/23/20) S/P cataract surgery History of neck surgery History of esophagogastroduodenoscopy (EGD) (05/23/20) Gastritis is duodenitis Social History Smoking and tobacco/nicotine status: never used tobacco/nicotine Alcohol intake: never Substance/Drug Use: never Physical Exam 2 Const: COMMON NORMALS: patient oriented x3 HENMT: COMMON NORMALS: normocephalic and atraumatic HEAD & SCALP: n ormocephalic and atraumatic Neck/C-Spine: COMMON NORMALS: full ROM and supple Chest: COMMONS NORMALS: normal inspection of the chest and normal palpation of entire chest wall Resp: COMMON NORMALS: normal respiratory effort, No retractions, No use of accessory muscles and clear to auscultation bilaterally AUSCULTATION: clear to auscultation bilaterally Cardio: COMMON NORMALS: regular rate, regular rhythm and No murmurs present (Cardio) RATE: regular rate RHYTHM: regular rhythm GI: COMMON NORMALS: Normal to inspection, nondistended, normoactive bowel sounds present, Soft to palpation, non-tender and no masses PALPATION: Yes Soft to palpation Extremity: COMMON NORMALS: normal to inspection and full ROM Neuro: COMMON NORMALS: patient oriented x3, moves all extremities and no focal motor deficits Psych: COMMON NORMALS: mental status grossly normal, Normal thought process present and cooperative THOUGHT PROCESS: Normal thought process present Skin: COMMON NORMALS: no rashes or lesions noted and no wounds GENERAL SKIN EXAM: no rashes or lesions noted Course 2 Vital Signs: Vital signs: Vital Signs Temperature 98.4 F 03/02/24 16:24 Pulse Rate 60 03/02/24 17:18 Respiratory Rate 15 03/02/24 17:18 Blood Pressure 132/74 03/02/24 17:18 Pulse Oximetry 97 03/02/24 17:18 Oxygen Delivery Me thod Room Air 03/02/24 17:18 MDM - Chest Pain Medical Decision Making Patient presents for chest pain he does have T wave inversions on his EKG his new from previous EKGs done here I am requesting records from [facility] as he did have a stent placed there on December 02 troponin 33 I did speak to hospitalist will admit for ACS rule out Medical Records I reviewed the patient's medical records. Lab Data I reviewed the patient's lab results. 03/02/24 16:30 03/02/24 16:30 Radiology Impressions Chest X-Ray 03/02/24 16:25 IMPRESSION: No acute findings. Laboratory Results WBC 9.04 10^3/uL (3.29-11.43) 03/02/24 16:30 RBC 3.62 10^6/uL (3.85-5.65) L 03/02/24 16:30 Hgb 11.50 g/dL (11.27-16.99) 03/02/24 16:30 Hct 35.1 % (37-53) L 03/02/24 16:30 MCV 97.0 fl (82-101) 03/02/24 16:30 MCH 31.8 pg (27-33) 03/02/24 16:30 MCHC 32.8 g/dL (30-55) 03/02/24 16:30 RDW 13.9 % (12.1-15.1) 03/02/24 16:30 Plt Count 273 10^3/cmm (157-399) 03/02/24 16:30 MPV 9.9 fL (7.4-10.4) 03/02/24 16:30 Neut % (Auto) 55.7 % 03/02/24 16:30 Lymph % (Auto) 31.3 % 03/02/24 16:30 Giles % (Auto) 7.4 % 03/02/24 16:30 Eos % (Auto) 4.1 % 03/02/24 16:30 Baso % (Auto) 0.9 % 03/02/24 16:30 Neut # (Auto) 5.04 10^3/uL (1.8-7.7) 03/02/24 16:30 Lymph # (Auto) 2.8 10^3/uL (0.8-4.8) 03/02/24 16:30 Giles # (Auto) 0.7 10^3/uL (0.2-0.9) 03/02/24 16:30 Eos # (Auto) 0.4 10^3/uL (0.0-0.8) 03/02/24 16:30 Baso # (Auto) 0.1 10^3/uL (0.0-0.1) 03/02/24 16:30 Nucleated RBC % (auto) 0 % 03/02/24 16:30 Nucleated RBCs # 0.0 /100WBC 03/02/24 16:30 Sodium 144 mmol/L (136-145) 03/02/24 16:30 Potassium 4.4 mmol/L (3.5-5.1) 03/02/24 16:30 Chloride 109 mmol/L (98-107) H 03/02/24 16:30 Carbon Dioxide 23 mmol/L (22-29) 03/02/24 16:30 Anion Gap 16.4 (5-19) 03/02/24 16:30 BUN 29 mg/dL (8-23) H 03/02/24 16:30 Creatinine 1.2 mg/dL (0.7-1.2) 03/02/24 16:30 GFR Calculation Not Reportable 03/02/24 16:30 Glucose 139 mg/dL (65-115) H 03/02/24 16:30 Calculated Osmolality 306 mOsm/kg (285-295) H 03/02/24 16:30 Calcium 9.3 mg/dL (8.5-10.5) 03/02/24 16:30 Total Bilirubin 0.3 mg/dL (0.15-1.2) 03/02/24 16:30 AST 17 U/L (0-40) 03/02/24 16:30 ALT 13 U/L (0-41) 03/02/24 16:30 Alkaline Phosphatase 121 U/L (40-130) 03/02/24 16:30 Troponin T Baseline 33 ng/L (0-15) H 03/02/24 16:30 Total Protein 6.3 g/dL (6.6-8.7) L 03/02/24 16:30 Albumin 4.0 g/dL (3.5-5.2) 03/02/24 16:30 Globulin 2.3 g/dL (1.3-4.6) 03/02/24 16:30 All radiology interpretation(s) finalized by discharge EKG Data EKG 1: I personally reviewed and interpreted this EKG as follows: EKG interpretation date: 03/02/24 EKG interpretation time: 16:26 Interpretation: nsr hr [address] elevation t wave inversion in v3-v6 qrs 107 qtc 392 Discharge Plan Discharge Patient Disposition: Admitted As Inpatient Clinical Impression: Chest pain Condition: Stable Coding Level of Care Code 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
[2024-03-02 17:02] LABS: Basophils # 0.1 10^3/uL (0.0-0.1); Basophils % 0.9 %; Eosinophils # 0.4 10^3/uL (0.0-0.8); Eosinophils % 4.1 %; Hematocrit 35.1 % (37-53); Lymphocytes # 2.8 10^3/uL (0.8-4.8); Lymphocytes % 31.3 %; Mean Corpuscular HGB Conc 32.8 g/dL (30-55); Mean Corpuscular Hemoglobin 31.8 pg (27-33); Mean Platelet Volume 9.9 fL (7.4-10.4); Monocytes # 0.7 10^3/uL (0.2-0.9); Monocytes % 7.4 %; Neutrophils # 5.04 10^3/uL (1.8-7.7); Neutrophils % 55.7 %; Nucleated Red Blood Cells % 0 %; Platelet Count 273 10^3/cmm (157-399); Red Blood Count 3.62 10^6/uL (3.85-5.65); Red Cell Distribution Width 13.9 % (12.1-15.1); White Blood Count 9.04 10^3/uL (3.29-11.43)
[2024-03-02 17:05] LABS: Troponin(5th) Baseline 33 ng/L (0-15)
[2024-03-02 17:06] LABS: Alanine Aminotransferase 13 U/L (0-41); Alkaline Phosphatase 121 U/L (40-130); Anion Gap 16.4 (5-19); Aspartate Amino Transferase 17 U/L (0-40); Blood Urea Nitrogen 29 mg/dL (8-23); Calcium 9.3 mg/dL (8.5-10.5); Carbon Dioxide 23 mmol/L (22-29); Chloride 109 mmol/L (98-107); Creatinine Clr Calc Pharmacy 49.2914; Globulin 2.3 g/dL (1.3-4.6); Glucose 139 mg/dL (65-115); Osmolality Calculated 306 mOsm/kg (285-295); Potassium 4.4 mmol/L (3.5-5.1); Sodium 144 mmol/L (136-145); Total Bilirubin 0.3 mg/dL (0.15-1.2); Total Protein 6.3 g/dL (6.6-8.7)
--- NOTE | 2024-03-02 17:58 | USCV_ITS ---
Seb Spangler Age: 78 Gender: M : 1945 Exam Date: 03/02/2024 18:12 Ordering Phys: Ashutosh Mark MD Technologist: ELLYN [place] [facility] [place]: chest pain x 2 days. BP: 132 / 74 HR: 67 Rhythm: Sinus Technical Quality: Adequate MEASUREMENTS (Male / Female) Normal Values 2D ECHO LV Diastolic Diameter PLAX 5.0 cm 4.2 - 5.9 / 3.9 - 5.3 cm IVS Diastolic Thickness 1.3 cm 0.6 - 1.0 / 0.6 - 0.9 cm IVS Systolic Thickness 1.9 cm LVPW Diastolic Thickness 1.5 cm 0.6 - 1.0 / 0.6 - 0.9 cm LVPW Systolic Thickness 1.8 cm LVOT Diameter 2.1 cm LV Ejection Fraction 2D Teich 71.5 % LV Ejection Fraction MOD 4C 67.8 % LV Ejection Fraction MOD 2C 78.3 % LV Ejection Fraction 2C AL 81.8 % LA Diameter 3.7 cm Aorta at Sinotubular Diameter 2.8 cm IVC Diameter 1.7 cm M-MODE LA Ao Ratio MM 1.2 AV Cusp Separation MM 0.7 cm DOPPLER AV Peak Velocity 286.0 cm/s LVOT Peak Velocity 103.0 cm/s AV Area Cont Eq vti 1.4 cm squared AV Area Cont Eq pk 1.2 cm squared MV Peak Velocity 115.0 cm/s MV Area PHT 2.7 cm squared Mitral E to A Ratio 0.9 TR Peak Velocity 272.0 cm/s TR Peak Gradient 29.6 mmHg TV Peak E Velocity 44.0 cm/s Right Atrial Pressure 3.0 mmHg Pulmonary Artery Systolic Pressu 32.6 mmHg PV Peak Velocity 69.0 cm/s FINDINGS Left Ventricle Normal left ventricular size and systolic function, EF 70%.mild left ventricular hypertrophy. No regional wall motion abnormalities. Grade I/IV diastolic dysfunction (abnormal relaxation filling pattern), normal to mildly elevated filling pressures. Right Ventricle The right ventricle is normal in size and function. Right Atrium The right atrium is normal in size. Left Atrium The left atrium is normal in size. Mitral Valve Mild mitral valve regurgitation. Aortic Valve Moderate aortic valve calcification. Trace to mild aortic valve regurgitation. Moderate aortic valve stenosis, mean gradient 15 mmHg, BETO 1.4 cm squared. Peak velocity of 2.86 m/s with a peak gradient of 33 mmHg Tricuspid Valve Trace tricuspid valve regurgitation. Estimated pulmonary artery peak systolic pressure 33 mmHg Pulmonic Valve No gross abnormalities noted Pericardium Normal pericardium without effusion. Aorta Normal ascending aorta dimension. IVC The inferior vena cava appears normal. CONCLUSIONS Normal left ventricular size and systolic function, EF 70%.mild left ventricular hypertrophy. No regional wall motion abnormalities. Grade I/IV diastolic dysfunction (abnormal relaxation filling pattern), normal to mildly elevated filling pressures. Moderate aortic valve calcification. Trace to mild aortic valve regurgitation. Moderate aortic valve stenosis, mean gradient 15 mmHg, BETO 1.4 cm squared. Peak velocity of 2.86 m/s with a peak gradient of 33 mmHg. Mild mitral valve regurgitation. Trace tricuspid valve regurgitation. Estimated pulmonary artery peak systolic pressure 33 mmHg. There is no pericardial effusion. There are no intracardiac masses. Compared to the study from 08/08/2023, there may not be a significant change Dr Walker Marino MD [facility] (Electronically Signed) Final Date: 02 March 2024 19:43 S
--- NOTE | 2024-03-02 18:00 | P.HP_ITS ---
Providers/Chief Complaint 2 Primary Care Provider: Raffaele Conroy MD Chief Complaint: Chest Pain History of Present Illness Seb Spangler is a 78 year old male with past medical history of hypertension, hyperlipidemia, recent history of stenting in December 2023, in [facility], who presents due to chest pain. Patient tells me that for the last 3 days has been having chest pain, substernal, stabbing-like chest pain, similar to when he had his stents placed in his heart, today he had significant episodes of chest pain which he used for nitroglycerin currently he tells me the chest pains are about 1 out of 10, but it is persisting, initial EKG in the ER showed T wave inversions in anterior leads, baseline troponin 33, he is alert oriented x 3, following all commands, he took his aspirin, Plavix, this morning, his beta-tyler Review of Systems 2 Const: Denies: fever(s) Card: Reports: chest pain Resp: Denies: dyspnea Medications/Allergies Home Medications Medication Instructions Recorded Confirmed Last Taken Type pantoprazole 40 mg tablet,delayed 40 mg PO DAILY 90 days #90 tabs 05/10/21 03/11/23 10/08/21 Rx release (Protonix) cetirizine 10 mg tablet (Zyrtec) 10 mg PO DAILY PRN Allergy Symptoms 09/30/21 03/11/23 Unknown History magnesium oxide 400 mg PO BID 10/08/21 03/11/23 10/08/21 History red yeast rice 600 mg tablet 600 mg PO DAILY 10/08/21 03/11/23 Unknown History ASO to right #1 ea 10/16/21 03/11/23 Unknown Rx hydrocodone 5 mg-acetaminophen 325 1 tab PO Q12H PRN Moderate Pain 30 11/15/21 03/11/23 Unknown Rx mg tablet days #60 tabs metoprolol tartrate 50 mg tablet 50 mg PO BID #180 tabs 02/25/22 03/11/23 Unknown Rx hydrochlorothiazide 25 mg tablet 25 mg PO QAM #90 tabs 09/10/22 03/11/23 Unknown Rx A Thurston Balance brace to the right #1 ea 12/03/22 03/11/23 Unknown Rx Allergies Allergy/AdvReac Type Severity Reaction Status Date / Time codeine Allergy Mild nausea Verified 03/02/24 16:30 PFSH Acute 2 PFSH: Medical History Ankle pain, chronic Leukocytosis Closed intertrochanteric fracture of right hip Closed intertrochanteric fracture Acute knee pain Acute hip pain Fall GERD (gastroesophageal reflux disease) KAREN (obstructive sleep apnea) Chronic bronchitis, obstructive Essential hypertension Surgical History Status post open reduction and internal fixation (ORIF) of fracture History of colonoscopy with polypectomy (05/23/20) S/P cataract surgery History of neck surgery History of esophagogastroduodenoscopy (EGD) (05/23/20) Gastritis is duodenitis Family History (Updated 03/02/24 @ 18:02 by Ashutosh Mark MD) Mother CAD (coronary artery disease) Social History Smoking and tobacco/nicotine status: never used tobacco/nicotine Alcohol intake: never Substance/Drug Use: never Vitals/I&O/Wt Last Vital Signs Temp 98.4 F 03/02/24 16:24 Pulse 60 03/02/24 17:18 Resp 15 03/02/24 17:18 BP 132/74 03/02/24 17:18 Pulse Ox 97 03/02/24 17:18 O2 Del Method Room Air 03/02/24 17:18 Weight last 48 hrs Weight 72.575 kg Physical Exam 2 Const: COMMON NORMALS: no acute distress and patient oriented x3 Eye: COMMON NORMALS: Equal, round and reactive pupils present Lymph: LYMPHATIC: no lymphadenopathy noted Resp: COMMON NORMALS: normal respiratory effort, No retractions, No use of accessory muscles and clear to auscultation bilaterally AUSCULTATION: clear to auscultation bilaterally Cardio: COMMON NORMALS: regular rate, regular rhythm, S1 normal heart sound present and S2 normal heart sound present RATE: regular rate RHYTHM: r egular rhythm HEART SOUNDS: S1 normal heart sound present and S2 normal heart sound present GI: COMMON NORMALS: Normal to inspection, nondistended, normoactive bowel sounds present, Soft to palpation and non-tender Extremity: COMMON NORMALS: no calf tenderness and no pedal edema Neuro: COMMON NORMALS: patient oriented x3, CN's II-XII intact bilaterally and moves all extremities Psych: COMMON NORMALS: mental status grossly normal Data 03/02/24 16:30 03/02/24 16:30 A&P Assessment and plan (1) Unstable angina: Plan Unstable angina ? Coronary angiography at [facility] showed first diagonal lesion 80% stenosis, proximal RCA mid to RCA lesion 30% stenosed, mid circumflex lesion 30% stenosed, proximal LAD to mid LAD lesion is 95% stenosis, status post stenting to diagonal, LAD, drug-eluting stent ? Plan ? Monitor closely in CCU ? Cardiology consulted, Dr. Alvarez ? Heparin drip ? Continue aspirin -Continue Plavix ? Continue statin ? Continue beta-tyler ? Monitor closely for chest pain ? Nitro as needed for chest pain -Telemetry monitoring ? Cardiac echo ?full code -Heparin drip for DVT prophylaxis Attestations 2 Medical Necessity Statement*: Patient requires hospitalization, outpatient observation, for unstable angina Diagnoses Unstable angina I20.0
--- NOTE | 2024-03-02 18:25 | ECG_ITS ---
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 Measurements Intervals [place] Rate: 60 P: 38 SD: 176 QRS: 26 QRSD: 113 T: -89 QT: 394 QTc: 395 Interpretive Statements SINUS RHYTHM PROBABLE SEPTAL MYOCARDIAL INFARCTION , PROBABLY OLD [35 ms Q WAVE IN V1/V2] MODERATE T-WAVE ABNORMALITY, CONSIDER ANTEROLATERAL ISCHEMIA [-0.1+ mV T-WAVE IN V3-V6] Compared to ECG 03/02/2024 16:26:39 Myocardial infarct finding now present T-wave abnormality still present Possible ischemia still present Electronically Signed On 03-03-2024 6:37:44 CDT by Walker Marino M.D. [id number]
[2024-03-02 18:26] LABS: INR 1.02 (0.8-1.2)
[2024-03-02 18:31] LABS: Magnesium 1.8 mg/dL (1.7-2.3)
[2024-03-02 18:32] LABS: Troponin 5 2HR 29.32 ng/L (0-15)
[2024-03-02 18:36] LABS: Troponin 5 2HR Delta -3.68 ABS# (0-10)
[2024-03-02] MEDS: heparin drip 25,000 UNIT/500 ML PREMIX 20.32 UNIT IV (22:11)
[2024-03-02] MEDS: heparin 5,000 unit/mL INJ 1 mL IV (22:11)
[2024-03-02] MEDS: atorvastatin 40 mg Tablet PO (22:12)
[2024-03-02] MEDS: metoprolol tartrate 50 mg Tablet PO (22:12)
--- NOTE | 2024-03-02 22:25 | ECG_ITS ---
[facility] Test Date: 2024-03-02 Pat Name: Seb Spangler Department: Room: 103 Gender: Male Evp Managing Director: : 1945 Requested By: Ben Cabrera Order Number: [id number] Reading MD: Walker Marino M.D. Measurements Intervals [place] Rate: 74 P: 59 PA: 180 QRS: 41 QRSD: 113 T: 0 QT: 350 QTc: 389 Interpretive Statements SINUS RHYTHM SEPTAL MYOCARDIAL INFARCTION , PROBABLY OLD [40+ ms Q WAVE IN V1/V2] MODERATE T-WAVE ABNORMALITY, CONSIDER ANTERIOR ISCHEMIA [-0.1+ mV T-WAVE IN V3/V4] Compared to ECG 03/02/2024 18:09:03 No significant changes Electronically Signed On 03-03-2024 6:37:55 CDT by Walker Marino M.D. [id number]
[2024-03-02 23:05] LABS: Troponin 5 6HR 35.14 ng/L (0-15); Troponin 5 6HR Delta 2.14 ng/L (0-12)
[2024-03-02 23:28] LABS: Chol HDL Ratio 2.65 mg/dL (1.0-5.00); Cholesterol 90 mg/dL (0-200); HDL Cholesterol 34 mg/dL (60-100); LDL Cholesterol Calculated 44 mg/dL (50-129); LDL HDL Ratio 1.29 RATIO (0.00-3.22); Triglycerides 61 mg/dL (0-150)
[2024-03-02 23:41] LABS: Estmated Average Glucose 114; Hemoglobin A1C 5.6 % (4.0-6.0)
[2024-03-03] VITALS (14 sets, daily range): BP systolic 120–149; BP diastolic 68–89; PULSE 60–84; RESP 12–21; TEMP 36.6–37.2; O2SAT 91–98
[2024-03-03 05:20] LABS: Basophils # 0.1 10^3/uL (0.0-0.1); Basophils % 0.8 %; Eosinophils # 0.4 10^3/uL (0.0-0.8); Eosinophils % 4.7 %; Hematocrit 32.1 % (37-53); Lymphocytes # 1.9 10^3/uL (0.8-4.8); Lymphocytes % 25.8 %; Mean Corpuscular Hemoglobin 31.5 pg (27-33); Mean Corpuscular Volume 95.3 fl (82-101); Mean Platelet Volume 9.9 fL (7.4-10.4); Monocytes # 0.7 10^3/uL (0.2-0.9); Monocytes % 8.7 %; Neutrophils # 4.43 10^3/uL (1.8-7.7); Neutrophils % 59.3 %; Nucleated Red Blood Cells % 0 %; Platelet Count 245 10^3/cmm (157-399); Red Blood Count 3.37 10^6/uL (3.85-5.65); Red Cell Distribution Width 13.5 % (12.1-15.1); White Blood Count 7.47 10^3/uL (3.29-11.43)
[2024-03-03 05:31] LABS: Partial Thromboplastin Time 107.1 SECONDS (23.9-36.7)
[2024-03-03 05:35] LABS: Anion Gap 12.3 (5-19); Blood Urea Nitrogen 28 mg/dL (8-23); Calcium 8.8 mg/dL (8.5-10.5); Carbon Dioxide 24 mmol/L (22-29); Chloride 110 mmol/L (98-107); Creatinine Clr Calc Pharmacy 53.9713; Glucose 101 mg/dL (65-115); Osmolality Calculated 300 mOsm/kg (285-295); Potassium 4.3 mmol/L (3.5-5.1); Sodium 142 mmol/L (136-145)
--- NOTE | 2024-03-03 07:05 | P.CONIM_ITS ---
Providers/Reason For Consult 2 Consulting Physician/Specialty*: Dl Marks MD/ Cardiology Reason for Consult*: Unstable angina Requesting Physician: Dr Mark Attending Physician: Ashutosh Mark MD Primary Care Provider: Raffaele Conroy MD History of Present Illness History of Present Illness Seb Spangler is a 78 year old male with past medical history of hypertension who had recent intervention of LAD and diagonal artery in [place] who has presented to the hospital with worsening chest pain symptoms for the last 3 days. He feels it is substernal with radiation to the arm. His EKG is showing T wave inversions in the anterior leads. Still having ongoing discomfort. Initial troponin was mildly elevated at 33 has not trended up significantly. Echo shows normal LV systolic function Review of Systems 2 Const: Denies: fever(s) Card: Reports: chest pain Resp: Denies: dyspnea Medications/Allergies Home Medications Medication Instructions Recorded Confirmed Last Taken Type pantoprazole 40 mg tablet,delayed 40 mg PO DAILY 90 days #90 tabs 05/10/21 03/11/23 10/08/21 Rx release (Protonix) cetirizine 10 mg tablet (Zyrtec) 10 mg PO DAILY PRN Allergy Symptoms 09/30/21 03/11/23 Unknown History magnesium oxide 400 mg PO BID 10/08/21 03/11/23 10/08/21 History red yeast rice 600 mg tablet 600 mg PO DAILY 10/08/21 03/11/23 Unknown History ASO to right #1 ea 10/16/21 03/11/23 Unknown Rx hydrocodone 5 mg-acetaminophen 325 1 tab PO Q12H PRN Moderate Pain 30 11/15/21 03/11/23 Unknown Rx mg tablet days #60 tabs metoprolol tartrate 50 mg tablet 50 mg PO BID #180 tabs 02/25/22 03/11/23 Unknown Rx hydrochlorothiazide 25 mg tablet 25 mg PO QAM #90 tabs 09/10/22 03/11/23 Unknown Rx A Thurston Balance brace to the right #1 ea 12/03/22 03/11/23 Unknown Rx Allergies Allergy/AdvReac Type Severity Reaction Status Date / Time codeine Allergy Mild nausea Verified 03/02/24 16:30 Current Medications Generic Name Dose Route Start Last Admin Trade Name Freq PRN Reason Stop Dose Admin Atorvastatin Calcium 40 mg 03/02/24 21:29 03/02/24 22:12 Atorvastatin 40 Mg Tablet PO 40 mg BEDTIME FRANCESCA Administration Heparin Sodium (Porcine) 0 unit 03/02/24 21:29 03/02/24 22:11 Heparin 5,000 Unit/Ml Inj 1 Ml IV 2,600 unit PRN PRN Administration Heparin weight-base protocol Protocol Heparin Sodium/Sodium Chloride 25,000 unit in 500 mls @ 0 mls/hr 03/02/24 21:29 03/03/24 06:05 Heparin Drip IV 11.02 unit/kg/hr .Q0M FRANCESCA 16 mls/hr Titration Protocol Per Protocol Metoprolol Tartrate 50 mg 03/02/24 21:29 03/02/24 22:12 Metoprolol Tartrate 50 Mg Tablet PO 50 mg BID FRANCESCA Administration PFSH Acute 2 PFSH: Medical History Ankle pain, chronic Leukocytosis Closed intertrochanteric fracture of right hip Closed intertrochanteric fracture Acute knee pain Acute hip pain Fall GERD (gastroesophageal reflux disease) KAREN (obstructive sleep apnea) Chronic bronchitis, obstructive Essential hypertension Surgical History Status post open reduction and internal fixation (ORIF) of fracture History of colonoscopy with polypectomy (05/23/20) S/P cataract surgery History of neck surgery History of esophagogastroduodenoscopy (EGD) (05/23/20) Gastritis is duodenitis Family History Mother CAD (coronary artery disease) Social History Smoking and tobacco/nicotine status: never used tobacco/nicotine Alcohol intake: never Substance/Drug Use: never Vitals/I&O/Wt Last Vital Signs Temp 98.4 F 03/03/24 04:00 Pulse 69 03/03/24 06:00 Resp 14 03/03/24 04:00 BP 124/68 03/03/24 04:00 Pulse Ox 93 03/03/24 04:00 O2 Del Method Room Air 03/03/24 04:00 07/03/03/24 03/03/24 22:59 06:59 14:59 Intake Total 100 / 100 160.528 / 260.528 Output Total 300 / 300 300 / 600 Balance -200 / -200 -139.472 / -339.472 Weight last 48 hrs Weight 161 lb Weight 161 lb 6.4 oz Weight 160 lb Physical Exam 2 Narrative: GENERAL: Patient is alert, awake and oriented x3. [] NECK: No jugular vein distension. [] HEENT: No cyanosis. No icterus. No pallor. [] HEART: Regular S1 and S2. Grade 2/6 systolic murmur LUNGS: Clear to auscultate bilaterally. [] CENTRAL NERVOUS SYSTEM: Grossly nonfocal. [] EXTREMITIES: Lower extremities with no edema bilaterally. Data 03/03/24 04:19 03/03/24 04:19 A&P Assessment and plan (1) Chest pain: Plan Patient has presented with chest pain symptoms that are concerning for unstable angina. EKG showing T wave inversions in anterior leads. Given his prior CAD history, EKG changes and typical presentation we will recommend proceeding with coronary angiogram with possible percutaneous coronary intervention. He wants to wait till family is here to discuss with them as well. Continue keeping him NPO. Continue aspirin and Plavix. Echocardiogram showing normal LV systolic function. Thank you for involving us with care of this patient. We will continue to follow. Please call with questions. Consult Attestations 2 Medical Necessity Statement: Care expected to cross 2 midnights. Coding Level of Care Code Acute Code for [facility] Fwd Diagnoses Chest pain R07.9
--- NOTE | 2024-03-03 08:05 | XACV_ITS ---
Exam Room: 2 Ht: 170 cm Wt: 73 kg BSA: 1.87 m2 Gender: Male : 1945 Any Known Allergies: Codeine Exam Priority: Routine Procedure(s): Procedure Description: Diagnostic procedure Procedure Description: PCI procedure Procedure Description: PTCA Procedure Description: Miscellaneous Procedure Description: ACT Procedure Description: Coronary Angiography Diagnostic Cath Status: Urgent Diagnostic Findings * No significant disease noted in the Left Main, Left Anterior Descending, Right, or Circumflex coronary arteries. Patent prior LAD stents. 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 This artery is jailed by overlapping LAD stents.. * 1st Diagonal: significant 80% stenosis, DIDI: 3 flow. * Coronary angiography shows right dominance. PCI Status: Urgent PCI Indication: Other Interventional Findings * Procedure detail: We engaged left main artery with XB 3.5 guide catheter. IV heparin was administered to maintain anticoagulation. 0.014 run-through guidewire was used to cross the ostial diagonal artery that was jailed by LAD stents. We dilated the stent with a 2.25x15 mm semicompliant balloon. This was followed by dilation with 2.5 x 15 mm semicompliant balloon. We attempted to cross with stent however given multiple layers of overlapping stent in the LAD, stent could not be advanced. As stenosis had improved significantly decision was made to continue with medical therapy. * 1st Diagonal: 80% stenosis treated with a AB TREK 2.25X15 RX BALLOON, and AB TREK 2.50X15 RX BALLOON. 0% residual stenosis, DIDI: 3 flow. Conclusions 1. No significant disease noted in the Left Main, Left Anterior Descending, Right, or Circumflex coronary arteries. Patent prior LAD stents. 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 This artery is jailed by overlapping LAD stents.. 2. S/p successful revascularization with balloon angioplasty. Stent could not be advanced as diagonal artery is jailed by overlapping LAD stents. 3. 1st Diagonal was treated with a Balloon, and Balloon. Recommendations * Continue dual antiplatelet therapy with aspirin and plavix. * Aggressive risk factor modification. * Outpatient cardiology follow up in 2 weeks. Interventional RX Recommendation: PCI w/o planned CABG Diagnostic RX Recommendation: PCI w/o planned CABG Anticoagulation: Heparin Pressures Phase:Rest AO : 108 / 70 ( 88 ) @ 9:59:00 AM 114 / 75 ( 95 ) @ 10:02:00 AM 140 / 62 ( 93 ) @ 10:05:00 AM 109 / 56 ( 78 ) @ 10:08:00 AM 99 / 57 ( 77 ) @ 10:13:00 AM 95 / 49 ( 69 ) @ 10:16:00 AM 114 / 63 ( 86 ) @ 10:33:00 AM Clinical Evaluation EBL: 5mL-10mL Procedural Details Procedure Consent Obtained. Current Diagnosis : Unstable angina. Pre-Procedure Time Out. Identified patient by full name and date of as verbalized by the patient/guarantor. Does the consent match the physician's order: Yes. Accurate & Complete Informed Consent: Yes. Inpatient/Outpatient History & Physical on Chart: Yes. If H&P is completed, is and addenduem needed: No; If yes, is the addendum complete: N/A. Visualize and Verify Site with Patient/Guarantor: N/A. Relevant Radiology Images available: Yes. Pre-op teaching completed and patient verbalized understanding. The risks, benefits, and alternatives of sedation and/or procedure were discussed by physician. The patient agrees to continue. Procedure started. [facility] Clinical Fraility Score: 3: Managing Well. Orthopedic Designer Indications: Worsening Angina. Chest Pain Symptom Assessment: Typical Angina Symptoms. Correct patient, site and procedure confirmed by cath team. Current diagnosis: Unstable angina. PERRLA. Strong, equal hand log clerk bilaterally. Lungs clear x 5 lobes. IV Site on Arrival: 18 gauge in the left anticubital. IV Fluids: 0.9% NaCl at KVO. 0 mL infused prior to pathology lab technician. Oxygen started at 2liters/min via nasal canula. bilateral groins was prepped with chloroprep then draped in the usual sterile fashion. Baseline sample Acquired. HR: 73 BPM. Physician arrived. Physician scrubbed in. Immediate Pre-Procedure Time Out. Correct Patient: Yes; Correct Procedure: Yes; Correct Site: Yes; Correct Patient Position: Yes; Correct Supplies: Yes; Dried Flammable Prep: Yes; Blood Products Available: N/A;. Lidocaine 1% infiltrated to the right groin. Arterial access obtained with micropuncture set. A 5 gambian JL4 catheter in over wire. Catheter removed over the standard wire. A 5 gambian JL4.5 catheter in over wire. Multiple views taken of left coronary artery. Catheter removed over the standard wire. A 5 gambian JR4 catheter in over wire. Multiple views taken of right coronary artery. Catheter removed over the standard wire. 6 gambian XB 3.5 guide catheter was inserted over the wire. Runthrough guidewire was advanced through the guide catheter to lesion in the diaganol. ACT drawn. Results 351 seconds. Therapeutic limits - pre-heparin administration 90-150 seconds and monitoring heparin during a vascular procedure >250 seconds. Inflation number : 1 A AB TREK 2.25X15 RX BALLOON was prepped and advanced across the 1st Diag , then inflated to 10 ELDON for 0:16 seconds. Balloon out. Results checked. 2.5x15mm Stent inserted to lesion in the diaganol. Intact stent out OTW. Inflation number : 2 A AB TREK 2.50X15 RX BALLOON was prepped and advanced across the 1st Diag , then inflated to 12 ELDON for 0:13 seconds. Inflation number: 3 The AB TREK 2.50X15 RX BALLOON was reinflated across the 1st Diag, to 10 ELDON for 0:08 seconds. Balloon out. 2.5x15mm Stent inserted to lesion in the diaganol. Intact stent out OTW. A second Runthrough guidewire inserted and advanced. Stent inserted to lesion in the diaganol. The first Runthrough wire removed. Intact stent out OTW. ACT drawn. Results out of range high seconds. Therapeutic limits - pre-heparin administration 90-150 seconds and monitoring heparin during a vascular procedure >250 seconds. A guideliner catheter inserted and advanced OTW. Stent inserted to lesion in the diaganol. Intact stent out OTW. Guideliner removed OTW. Results checked. Wire out. Guide catheter out. A Right femoral angiogram was performed to determine safe placement of closure device. ACT drawn. Results 201 seconds. Therapeutic limits - pre-heparin administration 90-150 seconds and monitoring heparin during a vascular procedure >250 seconds. ACT drawn. Results 229 seconds. Therapeutic limits - pre-heparin administration 90-150 seconds and monitoring heparin during a vascular procedure >250 seconds. A Mynx was successful obtaining hemostatsis at the Right Femoral artery insertion site. Post Procedure: Pulses reassessed and unchanged. PERRLA. Strong, equal hand log clerk bilaterally. No VTE prophylaxis required. Medication's Wasted: Lidocaine 1% = 10 mL. Medication's Wasted: Other = Versed 1 mg. Medication's Wasted: Heparin = 2000 units. Total IV fluids: 100 mL. Post-op diagnosis: PTCA of Diagonal. Complications: None. Estimated blood loss: 5mL-10mL. Responsiveness - Normal response to verbal stimuli; alert and oriented, PERRLA. Airway - Unaffected, no intervention required; spontaneous ventilation. Circulation: W/N/L, pulses unchanged. Nausea/Vomiting: No. Procedure completed. Patient transferred by bed to CPRU. Vital chart was stopped. Access Site Site: Right Femoral artery Sheath Size: 6 Fr Hemostasis Method: Mynx Hemostasis Success: Successful Procedure Medications Start: 8:43 AM Stop: 8:43 AM Medication: Versed Amount: 1 mg Route: I.V. Start: 8:43 AM Stop: 8:43 AM Medication: Fentanyl Amount: 50 mcg Route: I.V. Start: 9:05 AM Stop: 9:05 AM Medication: Heparin Amount: 4000 units Route: I.V. Start: 9:05 AM Stop: 9:05 AM Medication: Versed Amount: 1 mg Route: I.V. Start: 9:05 AM Stop: 9:05 AM Medication: Fentanyl Amount: 50 mcg Route: I.V. Start: 9:28 AM Stop: 9:28 AM Medication: Versed Amount: 1 mg Route: I.V. I, the attending physician, have reviewed and verified all procedure medications. Yes, all medications given per verbal order History/Risk Factors Hypertension: Yes Dyslipidemia: No Peripheral Arterial Disease (PAD): No Myocardial Infarction (MT): No Obesity: No Renal Disease: No Prior Interventions PCI: Yes CABG: No Valve Surgery: No Report Signatures Finalized by Dl Marks MD on 03/08/2024 05:33 PM
--- NOTE | 2024-03-03 08:37 | PC.NURSE ---
Patient is taken to photo lab manager at 0830.
--- NOTE | 2024-03-03 08:38 | W.PM.OPSUD ---
Surgery/Procedure H&P Update DATE OF PROCEDURE: March 03, 2024 DATE H&P PERFORMED: 03/03/24 H&P UPDATE INFORMATION: I have reviewed H&P completed within last 30 days, I have examined patient prior to procedure and No changes to prior documentation PREOP DIAGNOSIS: Worsening angina PRIMARY INDICATION FOR PROCEDURE: Worsening angina PLANNED PROCEDURE: Left heart cath with possible percutaneous coronary intervention PATIENT REASSESSED PRIOR TO SEDATION, WITH NO CHANGE NOTED: Yes PHYSICAL EXAM: alert, oriented x 3, clear to auscultation bilaterally and regular rate & rhythm AIRWAY EVAL/ANESTHESIA PLAN: normal airway, ASA III, Local Anesthesia, Risks, benefits & alternatives of sedation and/or procedure discussed and Patient agrees to continue as planned ADDITIONAL INFORMATION: Moderate sedation
--- NOTE | 2024-03-03 11:06 | PC.NURSE ---
Patient returned from computer laboratory technician to CSU at 1102, with a right femoral mynx closure.
--- NOTE | 2024-03-03 11:07 | PC.NURSE ---
Patient transferred to CSU via bed at this time. Patient care handed over to Carmelo RN at this time. No hematoma noted to R femoral acces site, dressing C/D/I.
[2024-03-03] MEDS: metoprolol tartrate 50 mg Tablet PO ×2 (11:13→17:29)
[2024-03-03] MEDS: amlodipine 5 mg Tablet PO (11:14)
[2024-03-03] MEDS: clopidogrel 75 mg Tablet PO (11:14)
[2024-03-03] MEDS: aspirin 81 mg EC Tablet PO (11:14)
[2024-03-03] MEDS: pantoprazole DR 40 mg Tablet PO (11:15)
--- NOTE | 2024-03-03 14:14 | P.PN_ITS ---
Subjective 2 Subjective: Patient was seen this morning, is at bedside, currently chest pain-free, he is undergone cardiac catheterization, denies any shortness of breath, no chest pain, no lightheadedness, dizziness, Vitals/I&O/Wt Last Vital Signs Temp 97.9 F 03/03/24 12:00 Pulse 66 03/03/24 12:00 Resp 18 03/03/24 12:00 BP 149/71 03/03/24 12:00 Pulse Ox 96 03/03/24 12:00 O2 Del Method Room Air 03/03/24 12:00 03/02/24 03/03/24 03/03/24 22:59 06:59 14:59 Intake Total 100 / 100 160.528 / 260.528 280.533 / 280.533 Output Total 300 / 300 300 / 600 800 / 800 Balance -200 / -200 -139.472 / -339.472 -519.467 / -519.467 Weight last 48 hrs Weight 73.028 kg Weight 73.21 kg Weight 72.575 kg Physical Exam 2 Const: COMMON NORMALS: no acute distress and patient oriented x3 Resp: COMMON NORMALS: normal respiratory effort, No retractions, No use of accessory muscles and clear to auscultation bilaterally AUSCULTATION: clear to auscultation bilaterally Cardio: COMMON NORMALS: regular rate, regular rhythm, S1 normal heart sound present and S2 normal heart sound present RATE: regular rate RHYTHM: r egular rhythm HEART SOUNDS: S1 normal heart sound present and S2 normal heart sound present GI: COMMON NORMALS: Normal to inspection, nondistended, normoactive bowel sounds present and non-tender Extremity: COMMON NORMALS: no pedal edema Neuro: COMMON NORMALS: patient oriented x3 Psych: COMMON NORMALS: mental status grossly normal Data 03/03/24 04:19 03/03/24 04:19 A&P Assessment and plan (1) Unstable angina: Plan Unstable angina ? Coronary angiography at [facility] showed first diagonal lesion 80% stenosis, proximal RCA mid to RCA lesion 30% stenosed, mid circumflex lesion 30% stenosed, proximal LAD to mid LAD lesion is 95% stenosis ? Plan ? Monitor closely in CSU ? Continue aspirin -Continue Plavix ? Continue statin ? Continue beta-tyler ? Monitor closely for chest pain ? Nitro as needed for chest pain -Telemetry monitoring ? Cardiac echo CONCLUSIONS Normal left ventricular size and systolic function, EF 70%.mild left ventricular hypertrophy. No regional wall motion abnormalities. Grade I/IV diastolic dysfunction (abnormal relaxation filling pattern), normal to mildly elevated filling pressures. Moderate aortic valve calcification. Trace to mild aortic valve regurgitation. Moderate aortic valve stenosis, mean gradient 15 mmHg, BETO 1.4 cm squared. Peak velocity of 2.86 m/s with a peak gradient of 33 mmHg. Mild mitral valve regurgitation. Trace tricuspid valve regurgitation. Estimated pulmonary artery peak systolic pressure 33 mmHg. There is no pericardial effusion. There are no intracardiac masses. Compared to the study from 08/08/2023, there may not be a significant change ?full code -Heparin for DVT prophylaxis Patient underwent cardiac catheterization, status post balloon angioplasty, currently chest pain-free, will monitor Attestations 2 Medical Necessity Statement*: Patient requires hospitalization for chest pain, unstable angina Diagnoses Unstable angina I20.0
[2024-03-03] MEDS: atorvastatin 40 mg Tablet PO (20:53)
[2024-03-04] VITALS (7 sets, daily range): BP systolic 124–134; BP diastolic 64–71; PULSE 67–77; RESP 17–22; TEMP 36.7–37.1; O2SAT 94–97; BMI 25.0
[2024-03-04 04:48] LABS: Basophils # 0.1 10^3/uL (0.0-0.1); Basophils % 0.8 %; Eosinophils # 0.4 10^3/uL (0.0-0.8); Eosinophils % 5.7 %; Hematocrit 33.1 % (37-53); Lymphocytes # 1.7 10^3/uL (0.8-4.8); Lymphocytes % 22.8 %; Mean Corpuscular HGB Conc 32.6 g/dL (30-55); Mean Corpuscular Hemoglobin 31.1 pg (27-33); Mean Corpuscular Volume 95.4 fl (82-101); Mean Platelet Volume 9.9 fL (7.4-10.4); Monocytes # 0.7 10^3/uL (0.2-0.9); Neutrophils % 60.2 %; Nucleated Red Blood Cells % 0 %; Platelet Count 242 10^3/cmm (157-399); Red Blood Count 3.47 10^6/uL (3.85-5.65); Red Cell Distribution Width 13.7 % (12.1-15.1); White Blood Count 7.32 10^3/uL (3.29-11.43)
[2024-03-04 05:12] LABS: Anion Gap 12.3 (5-19); Blood Urea Nitrogen 28 mg/dL (8-23); Calcium 8.7 mg/dL (8.5-10.5); Carbon Dioxide 24 mmol/L (22-29); Chloride 109 mmol/L (98-107); Creatinine Clr Calc Pharmacy 45.6198; Glucose 100 mg/dL (65-115); Osmolality Calculated 298 mOsm/kg (285-295); Potassium 4.3 mmol/L (3.5-5.1); Sodium 141 mmol/L (136-145)
[2024-03-04] MEDS: enoxaparin 40 mg/0.4 mL Syringe SUBCUT (06:50)
--- NOTE | 2024-03-04 07:01 | P.PN_ITS ---
Subjective 2 Subjective: Patient underwent coronary angiogram yesterday showed patent LAD stents however ostial diagonal artery had severe stenosis. It was jailed by the LAD stent overlapping multiple layers. Reviewed were able to perform balloon angioplasty. Flow improved significantly and has minimal residual stenosis however stent could not be advanced through the LAD stent struts. Has no chest pain this AM. Vitals/I&O/Wt Last Vital Signs Temp 98.3 F 03/04/24 04:57 Pulse 71 03/04/24 05:54 Resp 22 H 03/04/24 04:57 BP 124/68 03/04/24 04:57 Pulse Ox 95 03/04/24 00:07 O2 Del Method Room Air 03/04/24 04:57 O2 Flow Rate 0 03/03/24 19:26 03/03/24 03/04/24 03/04/24 22:59 06:59 14:59 Intake Total 260 / 540.533 240 / 780.533 Output Total 425 / 1225 900 / 2125 Balance -165 / -684.467 -660 / -1344.467 Weight last 48 hrs Weight 160 lb Weight 161 lb Weight 161 lb 6.4 oz Weight 160 lb Physical Exam 2 Narrative: GENERAL: Patient is alert, awake and oriented x3. [] NECK: No jugular vein distension. [] HEENT: No cyanosis. No icterus. No pallor. [] HEART: Regular S1 and S2. Grade 2/6 systolic murmur LUNGS: Clear to auscultate bilaterally. [] CENTRAL NERVOUS SYSTEM: Grossly nonfocal. [] EXTREMITIES: Lower extremities with no edema bilaterally. Data 03/04/24 03:50 03/04/24 03:50 A&P Assessment and plan (1) Chest pain: Plan Above-mentioned coronary anatomy. Patient had successful balloon angioplasty of diagonal artery. Stent could not be advanced through multiple layers of LAD stent struts as diagonal artery is jailed by prior stents in the LAD. Continue aspirin and Plavix. Creatinine has trended up slightly. Can give IV fluids for 6 to 8 hours. Outpatient BMP on Friday. Echocardiogram showing normal LV systolic function. Thank you for involving us with care of this patient. Please call with questions. Attestations 2 Medical Necessity Statement*: Care expected to cross 2 midnights. Coding Level of Care Code Acute Code for [facility] Diagnoses Chest pain R07.9
[2024-03-04] MEDS: aspirin 81 mg EC Tablet PO (08:47)
[2024-03-04] MEDS: metoprolol tartrate 50 mg Tablet PO (08:47)
[2024-03-04] MEDS: amlodipine 5 mg Tablet PO (08:47)
[2024-03-04] MEDS: pantoprazole DR 40 mg Tablet PO (08:47)
[2024-03-04] MEDS: clopidogrel 75 mg Tablet PO (08:47)
--- NOTE | 2024-03-04 10:21 | PM.DCS ---
Discharge Providers Date of Admission: 03/02/24 18:36 Date of Discharge: March 04, 2024 Attending Provider at Admission: Ashutosh Mark MD Attending Provider at Discharge: Ashutosh Mark MD Primary Care Provider: Raffaele Conroy MD Diagnoses at Discharge Discharge Diagnosis (1) Chest pain: Status: Acute Reason for Visit Reason for Visit: Chest Pain Hospital Course Hospital Course Seb Spangler is a 78 year old male with past medical history of hypertension, hyperlipidemia, recent history of stenting in December 2023, in [facility], who presents due to chest pain. Patient tells me that for the last 3 days has been having chest pain, substernal, stabbing-like chest pain, similar to when he had his stents placed in his heart, today he had significant episodes of chest pain which he used for nitroglycerin currently he tells me the chest pains are about 1 out of 10, but it is persisting, initial EKG in the ER showed T wave inversions in anterior leads, baseline troponin 33, he is alert oriented x 3, following all commands, he took his aspirin, Plavix, this morning, his beta-tyler Unstable angina ? Coronary angiography at [facility] showed first diagonal lesion 80% stenosis, proximal RCA mid to RCA lesion 30% stenosed, mid circumflex lesion 30% stenosed, proximal LAD to mid LAD lesion is 95% stenosis - Cardiac echo CONCLUSIONS Normal left ventricular size and systolic function, EF 70%.mild left ventricular hypertrophy. No regional wall motion abnormalities. Grade I/IV diastolic dysfunction (abnormal relaxation filling pattern), normal to mildly elevated filling pressures. Moderate aortic valve calcification. Trace to mild aortic valve regurgitation. Moderate aortic valve stenosis, mean gradient 15 mmHg, BETO 1.4 cm squared. Peak velocity of 2.86 m/s with a peak gradient of 33 mmHg. Mild mitral valve regurgitation. Trace tricuspid valve regurgitation. Estimated pulmonary artery peak systolic pressure 33 mmHg. There is no pericardial effusion. There are no intracardiac masses. Compared to the study from 08/08/2023, there may not be a significant change -Due to chest pain, elevated troponins, patient underwent coronary angiography -coronary angiogram showed patent LAD stents however ostial diagonal artery had severe stenosis.Were able to perform balloon angioplasty. Flow improved significantly and has minimal residual stenosis however stent could not be advanced through the LAD stent struts -Patient was monitored after procedure no recurrent chest pain, ambulating without significant symptomatology Discharge on aspirin, statin, Plavix, beta-tyler with close follow-up with cardiology as outpatient. Patient was advised if he were to have any recurrent chest pain to go to the emergency room Physical Exam Const: COMMON NORMALS: no acute distress and patient oriented x3 Resp: COMMON NORMALS: normal respiratory effort, No retractions, No use of accessory muscles and clear to auscultation bilaterally AUSCULTATION: clear to auscultation bilaterally Cardio: COMMON NORMALS: regular rate, regular rhythm, S1 normal heart sound present and S2 normal heart sound present RATE: regular rate RHYTHM: regular rhythm HEART SOUNDS: S1 normal heart sound present and S2 normal heart sound present GI: COMMON NORMALS: Normal to inspection, nondistended, normoactive bowel sounds present and non-tender Extremity: COMMON NORMALS: no pedal edema Neuro: COMMON NORMALS: patient oriented x3 Psych: COMMON NORMALS: mental status grossly normal Discharge Data Studies Completed and Pending Completed Studies During Hospitalization Category Date Time Status XR chest 1V portable [id number] Stat Exams 03/02/24 16:25 Completed CV. 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 Laboratory Results WBC 7.32 10^3/uL (3.29-11.43) 03/04/24 03:50 RBC 3.47 10^6/uL (3.85-5.65) L 03/04/24 03:50 Hgb 10.80 g/dL (11.27-16.99) L 03/04/24 03:50 Hct 33.1 % (37-53) L 03/04/24 03:50 MCV 95.4 fl (82-101) 03/04/24 03:50 MCH 31.1 pg (27-33) 03/04/24 03:50 MCHC 32.6 g/dL (30-55) 03/04/24 03:50 RDW 13.7 % (12.1-15.1) 03/04/24 03:50 Plt Count 242 10^3/cmm (157-399) 03/04/24 03:50 MPV 9.9 fL (7.4-10.4) 03/04/24 03:50 Neut % (Auto) 60.2 % 03/04/24 03:50 Lymph % (Auto) 22.8 % 03/04/24 03:50 [place] % (Auto) 10.0 % 03/04/24 03:50 Eos % (Auto) 5.7 % 03/04/24 03:50 Baso % (Auto) 0.8 % 03/04/24 03:50 Neut # (Auto) 4.40 10^3/uL (1.8-7.7) 03/04/24 03:50 Lymph # (Auto) 1.7 10^3/uL (0.8-4.8) 03/04/24 03:50 [place] # (Auto) 0.7 10^3/uL (0.2-0.9) 03/04/24 03:50 Eos # (Auto) 0.4 10^3/uL (0.0-0.8) 03/04/24 03:50 Baso # (Auto) 0.1 10^3/uL (0.0-0.1) 03/04/24 03:50 Nucleated RBC % (auto) 0 % 03/04/24 03:50 Nucleated RBCs # 0.0 /100WBC 03/04/24 03:50 PT 13.70 SECONDS (12.1-14.9) 03/02/24 18:07 INR 1.02 (0.8-1.2) 03/02/24 18:07 APTT 107.1 SECONDS (23.9-36.7) H 03/03/24 04:19 Sodium 141 mmol/L (136-145) 03/04/24 03:50 Potassium 4.3 mmol/L (3.5-5.1) 03/04/24 03:50 Chloride 109 mmol/L (98-107) H 03/04/24 03:50 Carbon Dioxide 24 mmol/L (22-29) 03/04/24 03:50 Anion Gap 12.3 (5-19) 03/04/24 03:50 BUN 28 mg/dL (8-23) H 03/04/24 03:50 Creatinine 1.3 mg/dL (0.7-1.2) H 03/04/24 03:50 GFR Calculation Not Reportable 03/04/24 03:50 Glucose 100 mg/dL (65-115) 03/04/24 03:50 Estimat Average Glucose 114 03/02/24 16:36 Hemoglobin A1c 5.6 % (4.0-6.0) 03/02/24 16:36 Calculated Osmolality 298 mOsm/kg (285-295) H 03/04/24 03:50 Calcium 8.7 mg/dL (8.5-10.5) 03/04/24 03:50 Magnesium 1.8 mg/dL (1.7-2.3) 03/02/24 18:07 Total Bilirubin 0.3 mg/dL (0.15-1.2) 03/02/24 16:30 AST 17 U/L (0-40) 03/02/24 16:30 ALT 13 U/L (0-41) 03/02/24 16:30 Alkaline Phosphatase 121 U/L (40-130) 03/02/24 16:30 Troponin T Baseline 33 ng/L (0-15) H 03/02/24 16:30 Troponin T 120 Minute 29.32 ng/L (0-15) H 03/02/24 18:07 Delta Troponin T -3.68 ABS# (0-10) L 03/02/24 18:07 Troponin T Hi Sens 6Hr 35.14 ng/L (0-15) H 03/02/24 22:31 Troponin T Hi Sens 6Hr Delta 2.14 ng/L (0-12) 03/02/24 22:31 Total Protein 6.3 g/dL (6.6-8.7) L 03/02/24 16:30 Albumin 4.0 g/dL (3.5-5.2) 03/02/24 16:30 Globulin 2.3 g/dL (1.3-4.6) 03/02/24 16:30 Triglycerides 61 mg/dL (0-150) 03/02/24 18:07 Cholesterol 90 mg/dL (0-200) 03/02/24 18:07 LDL Cholesterol, Calc 44 mg/dL (50-129) L 03/02/24 18:07 HDL Cholesterol 34 mg/dL (60-100) L 03/02/24 18:07 LDL/HDL Ratio 1.29 RATIO (0.00-3.22) 03/02/24 18:07 Cholesterol/HDL Ratio 2.65 mg/dL (1.0-5.00) 03/02/24 18:07 TSH 1.10 uIU/mL (0.27-4.20) 03/02/24 18:07 Vitals Last Vital Signs Temp 98.8 F 03/04/24 07:23 Pulse 77 03/04/24 07:23 Resp 17 03/04/24 07:23 BP 125/71 03/04/24 07:23 Pulse Ox 94 03/04/24 07:23 O2 Del Method Room Air 03/04/24 07:23 O2 Flow Rate 0 03/03/24 19:26 Discharge Plan Discharge Patient Disposition: Home Condition: Stable Prescriptions: New aspirin 81 mg Tablet,Delayed Release (Dr/Ec) 81 mg PO DAILY 30 Days Qty: 30 0RF nitroglycerin 0.4 mg Tablet, Sublingual 0.4 mg sublingual Q5M PRN (Reason: Chest Pain) 30 Days Qty: 30 0RF Continued (DME) ASO to right See Rx Instructions .Route .MEDSUPPLY Qty: 1 0RF Rx Instructions: As directed (DME) A Thurston Balance brace to the right See Rx Instructions .Route .MEDSUPPLY Qty: 1 0RF Rx Instructions: As directed [facility] [place] Protonix 40 mg tablet,delayed release (DR/EC) 40 mg PO DAILY 90 Days Qty: 90 3RF metoprolol tartrate 50 mg tablet 50 mg PO BID Qty: 180 1RF cetirizine [Zyrtec] 10 mg Tablet 10 mg PO DAILY PRN (Reason: Allergy Symptoms) red yeast rice 600 mg Tablet 600 mg PO DAILY Rx Instructions: give with meal/snack magnesium oxide 400 mg magnesium Tablet 400 mg PO BID atorvastatin 40 mg tablet 40 mg PO DAILY 30 Days Qty: 30 0RF Changed clopidogrel 75 mg tablet 75 mg PO DAILY 30 Days Qty: 30 0RF Rx Instructions: 75 mg orally; amlodipine 10 mg tablet 5 mg PO DAILY 30 Days Qty: 15 0RF Discharge Orders: Discharge Order (Routine); Ordered 03/04/24 Ordered By: Ashutosh Mark Referrals: Raffaele Conroy MD [Primary Care Provider] - 03/08/24 8:00 am Janice Núñez FNP [Nurse Practitioner] - 03/08/24 8:00 am Discharge Diet: Cardiac Discharge Activity: Resume usual activity Patient Instructions: Opioid Safety, Post Angiogram Home Care Instructions Activity Restrictions/Additional Instructions: -if you have any chest pain please go to emergency Discharge Attestations Time Spent in Discharge Care*: greater than 30 min Quality Metrics Clinical Quality Measures [ No reported AMI, CVA or VTE this stay] Coding Level of Care Code 24021 Total time (in minutes) for Discharge: 45 Diagnoses Chest pain R07.9
[2024-03-04] MEDS: sodium chloride 0.9% 1,000 ML 75 ML IV (10:35)
== END 2024-03-04 16:20 | disposition home or self-care (01) ==
LOC: ER 17:27 → CSU 19:03
PROVIDERS: Internal Medicine; Admitting Provider Family Medicine; Emergency Provider Emergency Medicine; PCP Family Medicine; Visit Provider Family Medicine
DX: I25.10 Atherosclerotic heart disease of native coronary artery without angina pectoris (principal); I10 Essential (primary) hypertension; E78.5 Hyperlipidemia, unspecified; Z95.5 Presence of coronary angioplasty implant and graft; G47.33 Obstructive sleep apnea (adult) (pediatric); Z79.82 Long term (current) use of aspirin; Z79.02 Long term (current) use of antithrombotics/antiplatelets; Z82.49 Family history of ischemic heart disease and other diseases of the circulatory system
CPT/HCPCS: 36415; 71045; 80048; 80053; 80061; 83036; 83735; 84443; 84484; 85025; 85347; 85610; 85730; 92920; 93005; 93306; 93454; 94664; 96365; 96372; 96374; 96375; 99152; 99153; 99285; C1725; C1760; C1769; C1874; C1887; C1894; G0269; G0378; J1644; J1650; J2250; J3010; J7030; Q9967

== ENCOUNTER → 2024-03-09 12:56 | Outpatient (BNVA) | payer MEDICARE, SELFPAY | PROVIDERS: PCP Family Medicine; Visit Provider Nurse Practitioner Family | DX: I25.10 Atherosclerotic heart disease of native coronary artery without angina pectoris (principal); Z09 Encounter for follow-up examination after completed treatment for conditions other than malignant neoplasm; I10 Essential (primary) hypertension | CPT/HCPCS: 80048; 99214 ==

== ENCOUNTER → 2024-05-19 15:04 | Outpatient (BNVA) | payer MEDICARE, SELFPAY | PROVIDERS: PCP Family Medicine; Visit Provider Internal Medicine | DX: I25.10 Atherosclerotic heart disease of native coronary artery without angina pectoris (principal); I10 Essential (primary) hypertension; Z87.891 Personal history of nicotine dependence | CPT/HCPCS: 99214 ==

== ENCOUNTER 2024-08-18 08:59 | Outpatient (CLI) | payer BC, SELFPAY ==
--- NOTE | 2024-08-18 09:13 | CT_ITS ---
WS: [id number] CT ABDOMEN AND PELVIS WITH CONTRAST HISTORY: RIGHT LOWER QUADRANT PAIN TECHNIQUE: Imaging performed of the abdomen and pelvis with IV contrast. Single phase imaging of the abdomen. Coronal and sagittal reformats are submitted. All CT scans at [facility] use at [address] one of these dose optimization techniques: automated exposure control; mA and/or kV adjustment per patient size (includes targeted exams where dose is matched to clinical indication); or iterative re construction. IV CONTRAST: Omnipaque 350; 100 mL IV. Oral contrast: Yes. DLP: 311.03 mGy.cm COMPARISON: 11/18/2013, chest CT 12/24/2023 Lower thorax: Lobulated solid mass measuring 1.5 x 1.5 cm at the RIGHT lung base. This mass was subso lid and smaller in size as noted on 12/24/2023. Early neoplasm is not excluded. 2 no hiatal hernia. Liver/biliary system: Stable 5 mm low-attenuation mass superior liver is probably a cyst. Normal port al vein. No bile duct dilatation. Gallbladder: Normal. No gallstones or wall thickening. No pericholecystic fluid. Pancreas: Normal size pancreas and pancreatic duct. No adjacent inflammation. Spleen: Normal size spleen. No mass or infarct. Adrenal glands: Normal. Right kidney: Large RIGHT renal cyst with a septation was described in 2014 with slight increase in s ize. Cyst measures 8.7 x 8.5 cm. Left kidney: Normal. Aorta: Moderate atherosclerosis with no aneurysm. Heavy dense calcification in the iliac arteries. Me senteric arteries are patent but there is a dense amount of plaque in the mid SMA. Lymphadenopathy: None. Free fluid: None. GI tract: Nondistended stomach. No small bowel obstruction. Marked fecal retention with increased air . No obstruction is identified. There is a hernia in the RIGHT inguinal region. Hernia contains a loo p of nondilated small bowel. No obstructive pattern. Abdominal wall: Unremarkable abdominal wall. No hernia. Pelvis: No free fluid or adenopathy within the pelvis. Bones: Increase in lumbar lordosis. LEFT curvature lumbar spine. Prior RIGHT hip arthroplasty. CT/CT abdomen pelvis w con* [id number] IMPRESSION: 1. RIGHT inguinal hernia containing a loop of nondilated small bowel. 2. Marked diffuse constipation with increased air. No GI tract obstruction. 3. No ascites or adenopathy. 4. Large RIGHT renal cyst has slightly increased in size since 2013. 5. Solid RIGHT lower lobe mass measures 1.5 x 1.5 cm. Slight increase in conso lidation and size since 12/24/2023. Consider PET/CT imaging due to the increase in size. Suspicious for neoplasm. 6. Advanced atherosclerosis aorta, iliac arteries and SMA.
[2024-08-18] MEDS: iohexol 350 mg/mL 500 mL Btl (per mL) PO (09:59)
[2024-08-18] MEDS: iohexol 350 mg/mL 500 mL Btl (per mL) IV (10:35)
== END 2024-08-18 09:00 | disposition home or self-care (01) ==
LOC: RAD 09:05
PROVIDERS: PCP Family Medicine; Visit Provider Family Medicine
DX: R10.31 Right lower quadrant pain (principal); K40.90 Unilateral inguinal hernia, without obstruction or gangrene, not specified as recurrent; K59.00 Constipation, unspecified; N28.1 Cyst of kidney, acquired; I70.0 Atherosclerosis of aorta; I70.8 Atherosclerosis of other arteries; R91.1 Solitary pulmonary nodule; R16.0 Hepatomegaly, not elsewhere classified; R93.89 Abnormal findings on diagnostic imaging of other specified body structures; M40.46 Postural lordosis, lumbar region; M43.8X6 Other specified deforming dorsopathies, lumbar region; Z98.890 Other specified postprocedural states
CPT/HCPCS: 74177

== ENCOUNTER 2024-08-26 12:33 | Emergency (ER) | payer BC, SELFPAY ==
--- NOTE | 2024-08-26 12:35 | XR_ITS ---
WS: [id number] Portable AP upright chest, 08/26/2024 Clinical Data: cp Comparison: Portable chest, 03/02/2024 Findings: No nodules, masses or effusions are seen. The heart is normal. The pulmonary vascularity is not increased. No pneumonia or pneumothorax is seen. The aortic arch and descending thoracic aorta s how calcification and tortuosity. There is an anterior cervical disc fusion. XR/XR chest 1V portable [id number] Impression: Atherosclerosis.
[2024-08-26 12:44] VITALS: BP 178/96; PULSE 70; RESP 16; O2SAT 98; BMI 25.8
--- NOTE | 2024-08-26 12:44 | ECG_ITS ---
[facility] Date: 2024-08-26 Pat Name: Seb Spangler Department: Room: Gender: Male Head Loader: : 1945 Requested By: Ben Cabrera Order Number: [id number] Reading MD: Dl Marks M.D. Measurements Intervals [place] Rate: 71 P: 60 AL: 172 QRS: 47 QRSD: 118 T: 58 QT: 371 QTc: 403 Interpretive Statements SINUS RHYTHM MODERATE INTRAVENTRICULAR CONDUCTION DELAY [110+ ms QRS DURATION] NONSPECIFIC T-WAVE ABNORMALITY Compared to ECG 03/02/2024 23:11:58 Intraventricular conduction delay now present Myocardial infarct finding no longer present Possible ischemia no longer present T-wave abnormality still present Electronically Signed On 08-27-2024 09:02:45 CARD CHECKER by Dl Marks M.D. [email or web address]
[2024-08-26 12:51] VITALS: TEMP 36.2
[2024-08-26 12:58] LABS: Basophils # 0.1 10^3/uL (0.0-0.1); Basophils % 0.8 %; Eosinophils # 0.2 10^3/uL (0.0-0.8); Eosinophils % 2.2 %; Hematocrit 34.8 % (37-53); Lymphocytes # 2.7 10^3/uL (0.8-4.8); Lymphocytes % 29.4 %; Mean Corpuscular HGB Conc 32.2 g/dL (30-55); Mean Corpuscular Hemoglobin 30.8 pg (27-33); Mean Corpuscular Volume 95.6 fl (82-101); Mean Platelet Volume 9.4 fL (7.4-10.4); Monocytes # 0.8 10^3/uL (0.2-0.9); Monocytes % 8.4 %; Neutrophils # 5.35 10^3/uL (1.8-7.7); Neutrophils % 58.2 %; Nucleated Red Blood Cells % 0 %; Platelet Count 327 10^3/cmm (157-399); Red Blood Count 3.64 10^6/uL (3.85-5.65); Red Cell Distribution Width 14.5 % (12.1-15.1); White Blood Count 9.18 10^3/uL (3.29-11.43)
--- NOTE | 2024-08-26 13:06 | PC.PHAR ---
patient just finished 10 day therapy of doxycycline
[2024-08-26 13:18] VITALS: BP 155/77; PULSE 66; O2SAT 97
[2024-08-26 13:18] LABS: Troponin(5th) Baseline 34 ng/L (0-15)
[2024-08-26 13:19] LABS: Alanine Aminotransferase 10 U/L (0-41); Albumin Level 3.9 g/dL (3.5-5.2); Alkaline Phosphatase 98 U/L (40-130); Aspartate Amino Transferase 18 U/L (0-40); Blood Urea Nitrogen 33 mg/dL (8-23); Calcium 9.7 mg/dL (8.5-10.5); Carbon Dioxide 26 mmol/L (22-29); Chloride 104 mmol/L (98-107); Creatinine Clr Calc Pharmacy 49.1369; Globulin 2.1 g/dL (1.3-4.6); Glucose 128 mg/dL (65-115); Lipase 45 U/L (13-60); Osmolality Calculated 299 mOsm/kg (285-295); Sodium 140 mmol/L (136-145); Total Bilirubin 0.3 mg/dL (0.15-1.2)
[2024-08-26 13:30] VITALS: PULSE 68; O2SAT 96
--- NOTE | 2024-08-26 14:03 | ED_ITS ---
HPI - Chest Pain 2 General: Chief Complaint: Chest Pain Stated Complaint: chest pain/left arm pain Time Seen by Provider: 08/26/24 12:48 History of Present Illness: 79-year-old male who presents with some chest pain, cough congestion that started around 8 AM this morning. He also reports that the pain seems to go a little bit into his left arm. Patient has mild shortness of breath and just generalized malaise. Associated symptoms: Reports dyspnea Related Data Home Medications Medication Instructions Recorded Confirmed cetirizine 10 mg tablet (Zyrtec) 10 mg PO DAILY PRN Allergy Symptoms 09/30/21 08/26/24 aspirin 81 mg tablet,delayed 81 mg PO DAILY 05/19/24 08/26/24 release amlodipine 5 mg tablet 5 mg PO DAILY 08/26/24 08/26/24 Previous Rx's Medication Instructions Recorded pantoprazole 40 mg tablet,delayed 40 mg PO DAILY 90 days #90 tabs 05/10/21 release (Protonix) ASO to right #1 ea 10/16/21 metoprolol tartrate 50 mg tablet 50 mg PO BID #180 tabs 02/25/22 A Thurston Balance brace to the right #1 ea 12/03/22 atorvastatin 40 mg tablet 40 mg PO DAILY 30 days #30 tabs 03/04/24 clopidogrel 75 mg tablet 75 mg PO DAILY 30 days #30 tabs 03/04/24 Allergies Allergy/AdvReac Type Severity Reaction Status Date / Time codeine Allergy Mild nausea Verified 05/19/24 15:41 Review of Systems 2 Const: Reports: chills and body aches Card: Reports: chest pain Resp: Reports: dyspnea and non-productive cough Musc: Reports: extremity pain; Denies: neck pain or back pain Skin/Breast: Denies: rash PFSH ED 2 PFSH: Medical History Coronary artery disease Ankle pain, chronic Leukocytosis Closed intertrochanteric fracture of right hip Closed intertrochanteric fracture Acute knee pain Acute hip pain Fall GERD (gastroesophageal reflux disease) KAREN (obstructive sleep apnea) Chronic bronchitis, obstructive Essential hypertension Surgical History Status post open reduction and internal fixation (ORIF) of fracture History of colonoscopy with polypectomy (05/23/20) S/P cataract surgery History of neck surgery History of esophagogastroduodenoscopy (EGD) (05/23/20) Gastritis is duodenitis Family History Mother CAD (coronary artery disease) Social History Smoking and tobacco/nicotine status: former use of tobacco/nicotine Alcohol intake: never Substance/Drug Use: never Physical Exam 2 Const: COMMON NORMALS: no acute distress, patient oriented x3 and alert Chest: COMMONS NORMALS: normal inspection of the chest, normal palpation of entire chest wall and normal inspection of the breasts Breast/axilla inspection: Yes normal inspection of the breasts Cardio: COMMON NORMALS: regular rate and regular rhythm RATE: regular rate RHYTHM: regular rhythm GI: COMMON NORMALS: Soft to palpation and non-tender PALPATION: Yes Soft to palpation Neuro: COMMON NORMALS: patient oriented x3 and moves all extremities S ENSORIUM/ORIENTATION: Yes alert Psych: COMMON NORMALS: mental status grossly normal and normal affect Skin: COMMON NORMALS: no rashes or lesions noted GENERAL SKIN EXAM: no rashes or lesions noted Course 2 Vital Signs: Vital signs: Vital Signs Temperature 97.1 F L 08/26/24 12:51 Pulse Rate 67 08/26/24 15:33 Respiratory Rate 16 08/26/24 14:30 Blood Pressure 169/81 08/26/24 15:33 Pulse Oximetry 97 08/26/24 15:33 Oxygen Delivery Pa thod Room Air 08/26/24 14:30 MDM - Chest Pain Medical Decision Making Patient's diagnostic studies are reviewed interpreted by me. Patient's labs is positive for human metapneumovirus. He has 2 negative troponins. Patient's EKG shows no acute findings with sinus rhythm, ventricular rate 71, NC 172, QTc 393. Patient with negative chest x-ray. Discussed findings with patient and recommended supportive care. He is stable and discharged home.. Lab Data 08/26/24 12:47 08/26/24 12:47 Radiology Impressions Chest X-Ray 08/26/24 12:35 Impression: Atherosclerosis. Laboratory Results WBC 9.18 10^3/uL (3.29-11.43) 08/26/24 12:47 RBC 3.64 10^6/uL (3.85-5.65) L 08/26/24 12:47 Hgb 11.20 g/dL (11.27-16.99) L 08/26/24 12:47 Hct 34.8 % (37-53) L 08/26/24 12:47 MCV 95.6 fl (82-101) 08/26/24 12:47 MCH 30.8 pg (27-33) 08/26/24 12:47 MCHC 32.2 g/dL (30-55) 08/26/24 12:47 RDW 14.5 % (12.1-15.1) 08/26/24 12:47 Plt Count 327 10^3/cmm (157-399) 08/26/24 12:47 MPV 9.4 fL (7.4-10.4) 08/26/24 12:47 Neut % (Auto) 58.2 % 08/26/24 12:47 Lymph % (Auto) 29.4 % 08/26/24 12:47 [place] % (Auto) 8.4 % 08/26/24 12:47 Eos % (Auto) 2.2 % 08/26/24 12:47 Baso % (Auto) 0.8 % 08/26/24 12:47 Neut # (Auto) 5.35 10^3/uL (1.8-7.7) 08/26/24 12:47 Lymph # (Auto) 2.7 10^3/uL (0.8-4.8) 08/26/24 12:47 [place] # (Auto) 0.8 10^3/uL (0.2-0.9) 08/26/24 12:47 Eos # (Auto) 0.2 10^3/uL (0.0-0.8) 08/26/24 12:47 Baso # (Auto) 0.1 10^3/uL (0.0-0.1) 08/26/24 12:47 Nucleated RBC % (auto) 0 % 08/26/24 12:47 Nucleated RBCs # 0.0 /100WBC 08/26/24 12:47 Sodium 140 mmol/L (136-145) 08/26/24 12:47 Potassium 4.0 mmol/L (3.5-5.1) 08/26/24 12:47 Chloride 104 mmol/L (98-107) 08/26/24 12:47 Carbon Dioxide 26 mmol/L (22-29) 08/26/24 12:47 Anion Gap 14.0 (5-19) 08/26/24 12:47 BUN 33 mg/dL (8-23) H 08/26/24 12:47 Creatinine 1.2 mg/dL (0.7-1.2) 08/26/24 12:47 GFR Calculation Not Reportable 08/26/24 12:47 Glucose 128 mg/dL (65-115) H 08/26/24 12:47 Calculated Osmolality 299 mOsm/kg (285-295) H 08/26/24 12:47 Calcium 9.7 mg/dL (8.5-10.5) 08/26/24 12:47 Total Bilirubin 0.3 mg/dL (0.15-1.2) 08/26/24 12:47 AST 18 U/L (0-40) 08/26/24 12:47 ALT 10 U/L (0-41) 08/26/24 12:47 Alkaline Phosphatase 98 U/L (40-130) 08/26/24 12:47 Troponin T Baseline 34 ng/L (0-15) H 08/26/24 12:47 Troponin T 120 Minute 28.61 ng/L (0-15) H 08/26/24 14:23 Delta Troponin T -5.39 ABS# (0-10) L 08/26/24 14:23 Total Protein 6.0 g/dL (6.6-8.7) L 08/26/24 12:47 Albumin 3.9 g/dL (3.5-5.2) 08/26/24 12:47 Globulin 2.1 g/dL (1.3-4.6) 08/26/24 12:47 Lipase 45 U/L (13-60) 08/26/24 12:47 Adenovirus (PCR) Not detected (NOT DETECT) 08/26/24 12:55 C. pneumoniae DNA (PCR) Not detected (NOT DETECT) 08/26/24 12:55 Coronavirus 229E (PCR) Not detected (NOT DETECT) 08/26/24 12:55 Human Metapneumovir PCR Detected (NOT DETECT) A 08/26/24 12:55 Influenza A (H1) PCR Not detected (NOT DETECT) 08/26/24 12:55 Influ A (H1/09) PCR Not detected (NOT DETECT) 08/26/24 12:55 Influenza A (H3) PCR Not detected (NOT DETECT) 08/26/24 12:55 Influenza Type A (PCR) Not detected (NOT DETECT) 08/26/24 12:55 Influenza Type B (PCR) Not detected (NOT DETECT) 08/26/24 12:55 M. pneumoniae (PCR) Not detected (NOT DETECT) 08/26/24 12:55 Parainfluenza 1 (PCR) Not detected (NOT DETECT) 08/26/24 12:55 Parainfluenza 2 (PCR) Not detected (NOT DETECT) 08/26/24 12:55 Parainfluenza 3 (PCR) Not detected (NOT DETECT) 08/26/24 12:55 Parainfluenza 4 (PCR) Not detected (NOT DETECT) 08/26/24 12:55 RSV Type A (PCR) Not detected (NOT DETECT) 08/26/24 12:55 RSV Type B (PCR) Not detected (NOT DETECT) 08/26/24 12:55 Entero/Rhino (PCR) Not detected (NOT DETECT) 08/26/24 12:55 SARS-CoV-2 (PCR) Not detected (NOT DETECT) 08/26/24 12:55 All radiology interpretation(s) finalized by discharge Discharge Plan Discharge Patient Disposition: Home Clinical Impression: Acute bronchitis due to human metapneumovirus Condition: Stable Prescriptions: No Action (DME) ASO to right See Rx Instructions .Route .MEDSUPPLY Qty: 1 0RF Rx Instructions: As directed (DME) A Thurston Balance brace to the right See Rx Instructions .Route .MEDSUPPLY Qty: 1 0RF Rx Instructions: As directed [facility] [place] aspirin 81 mg tablet,delayed release (DR/EC) 81 mg PO DAILY Protonix 40 mg tablet,delayed release (DR/EC) 40 mg PO DAILY 90 Days Qty: 90 3RF metoprolol tartrate 50 mg tablet 50 mg PO BID Qty: 180 1RF cetirizine [Zyrtec] 10 mg Tablet 10 mg PO DAILY PRN (Reason: Allergy Symptoms) amlodipine 5 mg tablet 5 mg PO DAILY atorvastatin 40 mg tablet 40 mg PO DAILY 30 Days Qty: 30 0RF clopidogrel 75 mg tablet 75 mg PO DAILY 30 Days Qty: 30 0RF Rx Instructions: 75 mg orally; Discharge Orders: Discharge ED (Routine); Ordered 08/26/24 Ordered By: Issa Mesa Referrals: Raffaele Conroy MD [Primary Care Provider] - Discharge Diet: Usual diet Discharge Activity: Resume usual activity Patient Instructions: Viral Syndrome in Children (ED), Opioid Safety, Pain Management Activity Restrictions/Additional Instructions: Tylenol or ibuprofen as needed for fever, chills. Drink plenty of fluids. Follow-up with your primary care provider symptoms not improving over the next 7 to 10 days. Coding Level of Care Code ED Refractory Specialist for Faye Nick
[2024-08-26 14:30] VITALS: BP 179/80; PULSE 67; RESP 16; O2SAT 97
--- NOTE | 2024-08-26 14:35 | ECG_ITS ---
[facility] [facility] Test Date: 2024-08-26 Pat Name: Seb Spangler Department: Room: Gender: Male Auto Clutch Specialist: : 1945 Requested By: Issa Mesa Order Number: [id number] Narinder MD: Dl Marks M.D. Measurements Intervals [place] Rate: 67 P: 62 RI: 183 QRS: 52 QRSD: 117 T: 31 QT: 388 QTc: 412 Interpretive Statements SINUS RHYTHM MODERATE INTRAVENTRICULAR CONDUCTION DELAY [110+ ms QRS DURATION] NONSPECIFIC T-WAVE ABNORMALITY Compared to ECG 08/26/2024 12:44:02 No significant changes Electronically Signed On 08-27-2024 09:01:59 REAL ESTATE UTILIZATION OFFICER by Dl Marks M.D. [email or web address]
[2024-08-26 14:51] LABS: Troponin 5 2HR 28.61 ng/L (0-15); Troponin 5 2HR Delta -5.39 ABS# (0-10)
[2024-08-26 14:59] LABS: Adenovirus Not Detected (NOT DETECT); Chlamydia Pneumoniae Not Detected (NOT DETECT); Coronavirus 229E,HKU1,NL63,OC4 Not Detected (NOT DETECT); Human Metapneumovirus Detected (NOT DETECT); Human Rhinovirus/Enterovirus Not Detected (NOT DETECT); Influenza A Not Detected (NOT DETECT); Influenza A H1 Not Detected (NOT DETECT); Influenza A H1-2009 Not Detected (NOT DETECT); Influenza A H3 Not Detected (NOT DETECT); Influenza B Not Detected (NOT DETECT); Mycoplasma Pneumoniae Not Detected (NOT DETECT); Parainfluenza Virus Type 1 Not Detected (NOT DETECT); Parainfluenza Virus Type 2 Not Detected (NOT DETECT); Parainfluenza Virus Type 3 Not Detected (NOT DETECT); Parainfluenza Virus Type 4 Not Detected (NOT DETECT); Respiratory Syncytial Virus A Not Detected (NOT DETECT); Respiratory Syncytial Virus B Not Detected (NOT DETECT); SARS-COV-2 Not Detected (NOT DETECT)
[2024-08-26 15:33] VITALS: BP 169/81; PULSE 67; O2SAT 97
== END 2024-08-26 15:34 | disposition home or self-care (01) ==
PROVIDERS: Emergency Medicine; Emergency Provider Student in an Organized Health Care Education/Training Program; PCP Family Medicine
DX: J21.1 Acute bronchiolitis due to human metapneumovirus (principal); Z79.82 Long term (current) use of aspirin; Z79.02 Long term (current) use of antithrombotics/antiplatelets; Z11.52 Encounter for screening for COVID-19; Z87.891 Personal history of nicotine dependence; I10 Essential (primary) hypertension; I25.10 Atherosclerotic heart disease of native coronary artery without angina pectoris
CPT/HCPCS: 71045; 80053; 83690; 84484; 85025; 87486; 87581; 87633; 93005; 99285

== ENCOUNTER 2024-09-03 12:23 | Outpatient (CLI) | payer BC, SELFPAY ==
--- NOTE | 2024-09-03 12:26 | PETR_ITS ---
PROCEDURE INFORMATION: Exam: PET/CT Skull Base to Mid-thigh Exam date and time: 09/03/2024 1:33 PM Age: 79 years old Clinical indication: Symptoms: Solid right lower lobe mass measures 1.5 x 1.5 cm. Slight increase in consolidation and size since 12/24/2023; Prior surgery; Surgery date: 6+ months; Surgery type: Hernia x 2; Additional info: Mass of right lower lobe of lung LABS AND CLINICAL REPORTS: Glucose: 116 mg/dl Treatment strategy for malignancy (PET staging): Initial Staging (PI) TECHNIQUE: Imaging protocol: Following at least four-hour fasting and following the injection of radiopharmaceutical, low dose CT images were obtained. Then, PET images were obtained. Attenuation corrected images were constructed using the CT scan. Fused images of PET and CT were reviewed. The standardized uptake values (SUV) reported below are maximum values within a region of interest, expressed in gm/ml. Exam includes orbital meatal line to mid-thigh. SUV normalization method: BodyWeight Radiopharmaceutical: 11 mCi F-18 FDG (Fluorodeoxyglucose), IV. Time of imaging post radiopharmaceutical administration: 45 minutes Injection site: left ac COMPARISON: 1. CT chest w con* [id number] 12/24/2023 3:[address] abdomen pelvis w con* [id number] 08/18/2024 10:24 AM FINDINGS: Brain: Visualized brain has normal physiologic uptake. Pharynx: No abnormal uptake. Larynx: No abnormal uptake. Lungs, pleura and trachea: 1.5 cm posterior right lower lobe nodule on axial image 225 shows SUV max 2.4. Couple adjacent punctate calcifications. Few additional scattered calcified granulomata. Heart: Normal physiologic uptake. Coronary arteries: Heavy coronary artery calcification. Mediastinal space: No abnormal uptake. Liver: No abnormal uptake. Gallbladder and biliary ducts: No abnormal uptake. Pancreas: No abnormal uptake. Spleen: No abnormal uptake. Adrenal glands: No abnormal uptake. Kidneys and ureters: Normal physiologic uptake. Benign-appearing photopenic right renal cyst. Stomach and bowel: No abnormal uptake. Reproductive: Prostatomegaly. No abnormal uptake. Vasculature: No abnormal uptake. Heavy systemic atherosclerotic calcification without aortic aneurysm. Lymph nodes: No abnormal uptake. No lymphadenopathy in the head, neck, chest, abdomen, pelvis, and extremities. Calcified left hilar nodes in keeping with sequela of old granulomatous disease. Skeleton: Degenerative changes along the axial skeletal system. Right total hip arthroplasty. Soft tissues: No abnormal uptake in the visualized head, neck, chest, abdomen, pelvis, and extremities. METRICS: Mediastinal blood pool: SUV mean 2.2, SUV max 2.6 Liver uptake: SUV mean 2.4, SUV max 3.1 PET/PET skull to thigh INIT [id number] IMPRESSION: 1. 1.5 cm right lower lobe nodule with SUV max 2.4 could be inflammatory, malignancy not excluded. Consider tissue sampling versus continued follow-up chest CT. 2. Additional chronic and incidental findings as above, to include atherosclerosis with heavy coronary artery calcification.
== END 2024-09-03 12:24 | disposition home or self-care (01) ==
LOC: RAD 12:23
PROVIDERS: PCP Family Medicine; Visit Provider Family Medicine
DX: R91.8 Other nonspecific abnormal finding of lung field (principal); J98.4 Other disorders of lung; I25.10 Atherosclerotic heart disease of native coronary artery without angina pectoris; N28.1 Cyst of kidney, acquired; N40.0 Benign prostatic hyperplasia without lower urinary tract symptoms; I70.0 Atherosclerosis of aorta; I89.8 Other specified noninfective disorders of lymphatic vessels and lymph nodes; R93.7 Abnormal findings on diagnostic imaging of other parts of musculoskeletal system; Z98.890 Other specified postprocedural states
CPT/HCPCS: 78815; A9552

== ENCOUNTER 2024-09-28 13:48 | Oncology outpatient (recurring) (ONCR) | payer BC, SELFPAY ==
[2024-09-28 15:35] LABS: Basophils # 0.1 10^3/uL (0.0-0.1); Basophils % 0.6 %; Eosinophils # 0.3 10^3/uL (0.0-0.8); Eosinophils % 3.1 %; Hematocrit 34.5 % (37-53); Lymphocytes # 2.2 10^3/uL (0.8-4.8); Lymphocytes % 26.5 %; Mean Corpuscular HGB Conc 32.2 g/dL (30-55); Mean Corpuscular Hemoglobin 30.7 pg (27-33); Mean Corpuscular Volume 95.6 fl (82-101); Mean Platelet Volume 9.6 fL (7.4-10.4); Monocytes # 0.7 10^3/uL (0.2-0.9); Monocytes % 8.2 %; Neutrophils # 5.06 10^3/uL (1.8-7.7); Neutrophils % 61.1 %; Nucleated Red Blood Cells % 0 %; Platelet Count 284 10^3/cmm (157-399); Red Blood Count 3.61 10^6/uL (3.85-5.65); Red Cell Distribution Width 14.1 % (12.1-15.1); White Blood Count 8.29 10^3/uL (3.29-11.43)
[2024-09-28 16:08] LABS: Alanine Aminotransferase 12 U/L (0-41); Alkaline Phosphatase 110 U/L (40-130); Anion Gap 14.1 (5-19); Aspartate Amino Transferase 19 U/L (0-40); Blood Urea Nitrogen 30 mg/dL (8-23); Calcium 9.2 mg/dL (8.5-10.5); Carbon Dioxide 25 mmol/L (22-29); Chloride 104 mmol/L (98-107); Creatinine Clr Calc Pharmacy 41.5684; Free T4 Free Thyroxine 1.35 ng/dL (0.82-1.77); Globulin 2.5 g/dL (1.3-4.6); Glucose 128 mg/dL (65-115); Lactate Dehydrogenase 99 U/L (135-225); Osmolality Calculated 296 mOsm/kg (285-295); Potassium 4.1 mmol/L (3.5-5.1); Sodium 139 mmol/L (136-145); Thyroid Stimulating Hormone 0.83 uIU/mL (0.27-4.20); Total Bilirubin 0.3 mg/dL (0.15-1.2); Total Protein 6.5 g/dL (6.6-8.7)
[2024-09-28 16:24] LABS: Folate Level 16.8 ng/mL (4.5-32.2)
[2024-09-28 17:07] LABS: Ferritin 37 ng/mL (30-400); Iron 62 ug/dL (59-158); Percent Saturation 20.1 % (20-50); Total Iron Binding Capacity 308 mcg/dl; Unsaturated Iron Binding 246 ug/dL (112-347)
[2024-09-28 17:22] LABS: Vitamin B12 474 pg/mL (232-1245)
[2024-09-29 21:55] LABS: ALBUMIN 3.7 g/dL (3.8-4.8); ALPHA 1 GLOBULIN 0.3 g/dL (0.2-0.3); ALPHA 2 GLOBULIN 0.6 g/dL (0.5-0.9); BETA 1 GLOBULIN 0.4 g/dL (0.4-0.6); BETA 2 GLOBULIN 0.2 g/dL (0.2-0.5); GAMMA GLOBULIN 0.8 g/dL (0.8-1.7)
[2024-10-02 04:15] LABS: Methylmalonic Acid 363 nmol/L (69-390)
== END 2024-10-01 23:59 | disposition home or self-care (01) ==
LOC: ONCMED 13:48
PROVIDERS: PCP Family Medicine; Visit Provider Internal Medicine Medical Oncology
DX: R91.1 Solitary pulmonary nodule (principal); D50.0 Iron deficiency anemia secondary to blood loss (chronic); R97.20 Elevated prostate specific antigen [PSA]
CPT/HCPCS: 36415; 80053; 82607; 82728; 82746; 83540; 83550; 83615; 83921; 84153; 84155; 84165; 84439; 84443; 85025; 86880

== ENCOUNTER 2024-10-18 07:42 | Day surgery (SDC) | payer BC, SELFPAY ==
--- NOTE | 2024-10-18 05:57 | W.PM.OPSUD ---
Surgery/Procedure H&P Update DATE OF PROCEDURE: October 18, 2024 DATE H&P PERFORMED: 09/28/24 H&P UPDATE INFORMATION: I have reviewed H&P completed within last 30 days, I have examined patient prior to procedure, No changes to prior documentation and H&P is in [facility] E[facility] on date indicated PLANNED PROCEDURE: Operation Date: 10/18/24 09:15 Proposed Procedures p lap possible open right inguinal hernia repair with mesh [id number], 94174, K46.9(Right) - Sae Gold MD
[2024-10-18 08:18] VITALS: BP 145/97; PULSE 54; RESP 17; TEMP 36.3; O2SAT 100; BMI 25.0
[2024-10-18] MEDS: sodium chloride 0.9% 1,000 ML 30 ML IV (08:22)
--- NOTE | 2024-10-18 08:29 | ANES.PREANE2 ---
Pre-Anesthetic Assessment Height/Weight: Height 1.7 m Weight 72.575 kg Temp Pulse Resp BP Pulse Ox O2 Del Method 97.3 F L 54 L 17 145/97 100 Room Air 10/18/24 08:18 10/18/24 08:18 10/18/24 08:18 10/18/24 08:18 10/18/24 08:18 10/18/24 08:18 Operation Date: 10/18/24 09:15 Proposed Procedures p lap possible open right inguinal hernia repair with mesh 41055, 30607, K46.9(Right) - Sae Gold MD Familial anesthetic complications: None Was Beta Phillip taken within 24 hours: Yes Was Clonidine taken within 24 hours: N/A Last intake: Intake Last Liquid Date 10/17/24 Last Liquid Time 20:00 Last Solid Date 10/17/24 Last Solid Time 20:00 Social No alcohol and No tobacco Exam alert, oriented x 3, clear to auscultation bilaterally and regular rate & rhythm Airway Mallampati: Class II Dentition: false Pulmonary Chronic Obstructive Pulmonary Disease CV/HEM Coronary Artery Disease (stents) and Hypertension moderate Metabolic Hyperlipidemia Anesthetic Plan ASA status: 4 Anesthesia: General Risk of > 500 ml blood loss (7ml/kg in children): No Medications/Allergies Home Medications ?Medication ?Instructions ?Recorded ?Confirmed ?Last Taken ?Type pantoprazole 40 mg tablet,delayed 40 mg PO DAILY 90 days #90 tabs 05/10/21 10/14/24 10/17/24 Rx release (Protonix) cetirizine 10 mg tablet (Zyrtec) 10 mg PO DAILY PRN Allergy Symptoms 09/30/21 10/14/24 Unknown History ASO to right #1 ea 10/16/21 10/14/24 Unknown Rx metoprolol tartrate 50 mg tablet 50 mg PO BID #180 tabs 02/25/22 10/14/24 10/18/24 Rx A Thurston Balance brace to the right #1 ea 12/03/22 10/14/24 Unknown Rx atorvastatin 40 mg tablet 40 mg PO DAILY 30 days #30 tabs 03/04/24 10/14/24 10/17/24 Rx clopidogrel 75 mg tablet 75 mg PO DAILY 30 days #30 tabs 03/04/24 10/14/24 10/12/24 Rx aspirin 81 mg tablet,delayed 81 mg PO DAILY 05/19/24 10/14/24 10/14/24 History release amlodipine 5 mg tablet 5 mg PO DAILY 08/26/24 10/14/24 10/17/24 History Allergies Allergy/AdvReac Type Severity Reaction Status Date / Time codeine Allergy Mild nausea Verified 10/14/24 15:18 Current Medications Generic Name Dose Route Start Last Admin Trade Name Johnq PRN Reason Stop Dose Admin Sodium Chloride 1,000 mls @ 30 mls/hr 10/18/24 08:00 10/18/24 08:22 Sodium Chloride 0.9% IV 10/19/24 07:59 30 mls/hr .Q24H FRANCESCA Administration PFSH Anesthesia Medical History (Updated 10/12/24 @ 14:06 by Jin Briscoe) Coronary artery disease Ankle pain, chronic Leukocytosis Closed intertrochanteric fracture of right hip Closed intertrochanteric fracture Acute knee pain Acute hip pain Fall GERD (gastroesophageal reflux disease) KAREN (obstructive sleep apnea) Chronic bronchitis, obstructive Essential hypertension Surgical History Status post open reduction and internal fixation (ORIF) of fracture History of colonoscopy with polypectomy (05/23/20) S/P cataract surgery History of neck surgery History of esophagogastroduodenoscopy (EGD) (05/23/20) Gastritis is duodenitis Family History Mother CAD (coronary artery disease) Social History Smoking and tobacco/nicotine status: never used tobacco/nicotine Alcohol intake: never Substance/Drug Use: never Data Anesthesia Cardiac Studies: Echocardiogram 03/02/24
--- NOTE | 2024-10-18 09:16 | SUR.PREOP ---
Patient's surgery for today cancelled by Dr. Gold. Patient left ambulatory.
== END 2024-10-18 09:10 | disposition home or self-care (01) ==
LOC: OR 07:44
PROVIDERS: PCP Family Medicine; Visit Provider Surgery
PROC: (CPT 49650; principal; 2024-10-18 09:05)
DX: K40.90 Unilateral inguinal hernia, without obstruction or gangrene, not specified as recurrent (principal); Z53.8 Procedure and treatment not carried out for other reasons; E78.5 Hyperlipidemia, unspecified; J44.9 Chronic obstructive pulmonary disease, unspecified; I25.10 Atherosclerotic heart disease of native coronary artery without angina pectoris; Z95.5 Presence of coronary angioplasty implant and graft; I10 Essential (primary) hypertension; K21.9 Gastro-esophageal reflux disease without esophagitis; Z79.899 Other long term (current) drug therapy; Z79.82 Long term (current) use of aspirin; Z79.02 Long term (current) use of antithrombotics/antiplatelets; Z88.5 Allergy status to narcotic agent
CPT/HCPCS: 49650; J1100; J2405; J2704; J3490; J7030

== ENCOUNTER 2025-02-18 10:32 | Emergency (ER) | payer MEDICARE, SELFPAY ==
--- OUTSIDE RECORDS SUMMARY | 2025-02-14 10:00 | XMS_ITS | Encounter Summary ---
Author Organization [facility] Address [address] [place] [address] Care Team Providers Care Matte Cutter Name Role Phone Katya Oliva Jaquan HAM Primary Care Provider [phone] Reason for Visit * Reason Comments Upper Respiratory Symptoms URI symptoms since Friday Encounter Details Date Type Department Care Team ([facility] st Contact Info) Description 02/14/2025 10:00 AM CDT Office Visit [facility] [place] [address] [place] [address] [facility] [address] [place] [address] COVID-19 virus detected (Primary Dx); Other iron deficiency anemia Social History Tobacco Use Types Packs/Day Years Used Date Smoking Tobacco: Former Cigarettes 1 4 0 11/27/1962 - 11/27/1966 Passive Smoke Exposure: Past Smokeless Tobacco: Never Comments:Didn't like it Alcohol Use Standard Drinks/Week Comments No 0 (1 standard drink = 0.6 oz pur e alcohol) Sex and Gender Information Value Date Recorded Sex Assigned at Not on file Legal Sex Male 5:36 AM 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 Gender Identity Not on file Sexual Orientation Not on file documented as of this encounter Last Filed Vital Signs Vital Sign Reading Time Taken Comments Blood Pressure 122/76 02/14/2025 10:28 AM CDT Pulse 74 02/14/2025 10:28 AM CDT Temperature 36.8 C (98.2 F) 02/14/2025 10:28 AM CDT Respiratory Rate 18 02/14/2025 10:28 AM CDT Oxygen Saturation 95% 02/14/2025 10:28 AM CDT Inhaled Oxygen Concentration - - Weight 72.8 kg (160 lb 9.6 oz) 02/14/2025 10:28 AM CDT Height 170.2 cm (5' 7 ) 02/14/2025 10:28 AM CDT Body Mass Index 25.15 02/14/2025 10:28 AM CDT documented in this encounter Progress Notes * Leela Lundberg, MIKEL - 02/14/2025 10:29 AM CDT Chief Complaint Patient presents with Upper Respiratory Symptoms URI symptoms since Friday Patient Active Problem List Diagnosis Code GERD without esophagitis K21.9 Cervical myelopathy G95.9 Status post cervical spinal fusion Z98.1 Inflammatory arthritis M19.90 Hearing reduced H91.90 HTN (hypertension), benign I10 Status post total replacement of right hip Z96.641 History of tobacco use Z87.891 Diastolic dysfunction I51.89 Anemia D64.9 Elevated serum creatinine R79.89 Aortic regurgitation I35.1 Status post total right knee replacement Z96.651 Abnormal computed tomography angiography (CTA) R93.89 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 He recently returned from a cruise trip and began experiencing symptoms such as sneezing, coughing, and a sore throat. He has been experiencing diarrhea for the past two days, which he describes as watery, andhe took two Imodium tablets to manage this. He has also been experiencing a low-grade fever and body aches, along with shortness of breath and nasal congestion. His appetite has been poor, with minimal food intake over the past two days; however, he managed to eat a sandwich last night and a bowl of cereal this morning. To manage his symptoms, he has been taking Mucinex D, Zyrtec, and Tylenol forfever management. He has received all doses of the COVID-19 vaccine and the influenza vaccine this year. 10 point review of systems is otherwise negative except as mentioned above. Past Medical History: Diagnosis Date Cerebral artery occlusion with cerebral infarction (CMS/HCC) Coronary artery disease GERD (gastroesophageal reflux disease) 1994 Hearing reduced Heart murmur previously undiagnosed 2021 HTN (hypertension) Inflammatory arthritis TB (tuberculosis) Current Outpatient Medications Medication Instructions amLODIPine (NORVASC) 5 mg, Oral, DAILY aspirin (ECOTRIN EC) 81 mg, Oral, DAILY atorvastatin (LIPITOR) 40 mg, Oral, DAILY clopidogreL (PLAVIX) 75 mg, Oral, DAILY ferrous sulfate 325 mg, Oral, DAILY HYDROcodone-acetaminophen (NORCO) 7.5-325 mg Tablet 1 Tablet, Oral, EVERY 4 HOURS PRN metoprolol tartrate (LOPRESSOR) 50 mg, TWO TIMES DAILY molnupiravir 800 mg, Oral, EVERY 12 HOURS nitroglycerin (NITROSTAT) 0.4 mg, Sublingual, EVERY 5 MINUTES PRN pantoprazole (PROTONIX) 40 mg, DAILY traMADoL (ULTRAM) 50 mg tablet 1 Tablet, EVERY 6 HOURS Past Surgical History: Procedure Laterality Date HX CAROTID STENT 2023 HX CERVICAL SPINE SURGERY 2011 HX HEART CATHETERIZATION 03/04/24 HX HERNIA REPAIR 2011 HX HIP SURGERY Oct 01, 2021 [place], [place] HX KNEE REPLACEMENT 06/25 HX SURGICAL OTHER N/A 07/07/2015 FLUOROSCOPY performed by Julio César Negro MD at [facility] OR HX SURGICAL OTHER Bilateral 11/16/2024 MESH INSERTION performed by Mateus Bautista DO at [facility] [place] ARTHRD ANT NTRBD MIN DSC EA ADDL INTERSPACE N/A 07/07/2015 CERVICAL DISCECTOMY FUSION ANTERIOR MULTILEVEL performed by Julio César Negro MD at [facility] [place] ARTHRP ACETBLR/PROX FEM PROSTC AGRFT/ALGRFT Right 12/11/2021 HIP ARTHROPLASTY TOTAL JOINT REPLACEMENT performed by Rob Hook MD at [facility] [place] ARTHRP KNE CONDYLE&PLATU MEDIAL&LAT COMPARTMENTS Right 07/02/2022 KNEE ARTHROPLASTY TOTAL REPLACEMENT performed by Rob Hook MD at [facility] OR [place] LAPS SURG RPR RECURRENT INGUINAL HERNIA Right 11/16/2024 HERNIA INGUINAL REPAIR ROBOTIC XI performed by Mateus Bautista DO at [facility] [place] REMOVAL IMPLANT DEEP Right 12/11/2021 FEMUR HARDWARE REMOVAL performed by Rob Hook MD at [facility] [place] RPR AA HERNIA 1ST 3-10 CM REDUCIBLE N/A 11/16/2024 HERNIA VENTRAL REPAIR ROBOTIC XI performed by Mateus Bautista DO at [facility] OR Past social, family, and medical history reviewed. BP 122/76 Pulse 74 Temp 98.2 ??F (36.8 ??C) Resp 18 Ht 5' 7 (1.702 m) Wt 72.8 kg (160 lb9.6 oz) SpO2 95% BMI 25.15 kg/m?? Physical Exam Constitutional: General: He is not in acute distress. Appearance: Normal appearance. He is not ill-appearing. HENT: Head: Normocephalic. Right Ear: External ear normal. Left Ear: External ear normal. Nose: Nose normal. Eyes: Conjunctiva/sclera: Conjunctivae normal. Cardiovascular: Rate and Rhythm: Normal rate and regular rhythm. Pulses: Normal pulses. Heart sounds: Normal heart sounds. No murmur heard. Pulmonary: Effort: Pulmonary effort is normal. No respiratory distress. Breath sounds: Normal breath sounds. Musculoskeletal: Right lower leg: No edema. Left lower leg: No edema. Skin: General: Skin is warm and dry. Neurological: Mental Status: He is alert and oriented to person, place, and time. Psychiatric: Mood and Affect: Mood normal. Behavior: Behavior normal. Heart Failure: Preserved Ejection Fraction (HFpEF) Guideline-directed medications (SOR): Current: Notes/plan: SGLT2i (2a) No value filed. Discussed - revisit next appointment or w/ automobile body customizer Titrate medication to reach blood pressure targets (1) Diuretics as needed (1) No contraindications Advance care planning & code status Code Status: Prior Date of Last ACP: none ICD-10-CM ICD-9-CM 1. COVID-19 virus detected U07.1 079.89 POC COVID-19 ANTIGEN molnupiravir 200 mg capsule 2. Other iron deficiency anemia D50.8 280.8 Assessment & Plan COVID-19 - Symptoms include sneezing, coughing, sore throat, diarrhea, and low-grade fever x 3-4 days - COVID-19 test returned positive - Advised to avoid public places for 5 days from the onset of symptoms and follow CDC guidelines from day 5 to day 10 - Prescription for molnupiravir, to be taken twice daily for 5 days, sent to pharmacy - Instructed to maintain hydration and adhere to prescribed medication regimen - Report any worsening symptoms Iron deficiency - Taking prescribed iron supplement since the last week of 01/2025 - Blood counts and iron levels to be rechecked in the first week of 03/2025 - Reviewed timing of iron supplement's effectiveness - Scheduled follow-up appointment to reassess iron levels MIKEL Begum-C The author of this note, patient (or authorized sales representative meats), and all other persons present consent to the audio recording of this visit for charting documentation purposes. This note was automatically generated, edited by a Quality Stained Glass Window Designer, and finalized by MIKEL Quinones. documented in this encounter Plan of Treatment Upcoming Encounters Date Type Department Care Team (Latest Contact Info) Description 02/23/2025 11:20 AM CDT Office Visit [facility] [address] [facility] [address] [place] [address] Krysta Restrepo NP [address] [facility] [address] [place] [address] 02/23/2025 2:00 PM CDT Office Visit [facility] Urology [address] [address] Cynthia Munguia PA-C [address] [place] [address] 02/28/2025 1:00 PM CDT Appointment [facility] CT Scan [address] [place] [address] Ama Coppola MD [address] [place] [phone] 03/09/2025 10:00 AM CDT Hospital Encounter [facility] Endoscopy [address] [place] [address] Ama oCppola MD [address] [place] [address] Lung nodule 03/09/2025 11:00 AM CDT - 03/09/2025 12:34 PM CDT Surgery [facility] Endoscopy [address] [place] [address] Ama Coppola MD [address] [place] [address] BRONCHOSCOPY COMPUTER-ASSISTED/R OBOTIC 04/05/2025 10:00 AM CDT Office Visit [facility] [address] [place] [phone] Leela Lundberg, [facility] [address] [place] [phone] 07/05/2025 10:20 AM URGENT 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 Office Visit [facility] [address] [place] [phone] Leela Lundberg, [facility] [address] [place] [phone] Scheduled Procedures Name Priority Associated Diagnoses Date/Ti me BRONCHOSCOPY COMPUTER-ASSISTED/ROBOTIC Lung nodule 03/09/2025 11:00 AM CDT BRONCHOSCOPY WITH EBUS INCLUDING FLUOROSCOPIC GUIDANCE Lung nodule 03/09/2025 11:00 AM CDT documented as of this encounter Procedures Procedure Name Priority Date/Time Associated Diagnosis Comments POC COVID-19 ANTIGEN Routine 02/14/2025 10:45 AM CDT COVID-19 virus detected documented in this encounter Results * (ABNORMAL) POC COVID-19 ANTIGEN (02/14/2025 10:45 AM CDT) COVID-19 ANTIGEN POC Positive(A) Presumptively Negative [facility] INTERNAL KIT QC POC Pass Pass [facility] KIT LOT NUMBER POC [id number] [facility] KIT EXP DATE POC 07/04/2025 [facility] READ METHOD POC Instrument [facility] Upper Respiratory 02/14/2025 10:45 AM CDT Leela Lundberg ANIMAL BREEDER POINT OF CARE TESTING Melissa cramer Result [facility] CLIA# [id number] [address] [place] [address] documented in this encounter Visit Diagnoses Diagnosis COVID-19 virus detected- Primary Other iron deficiency anemia Gross hematuria- Primary Elevated PSA Elevated prostate specific antigen (PSA) Lung nodule Solitary pulmonary nodule documented in this encounter Care Teams Matte Cutter Relationship Specialty Start Date End Date Katya Oliva DO [address] [place] [address] PCP - General Family Practice 10/26/24 documented as of this encounter
[2025-02-18] VITALS (7 sets, daily range): BP systolic 107–123; BP diastolic 66; PULSE 70–77; RESP 16–18; TEMP 36.9; O2SAT 96–98
--- NOTE | 2025-02-18 10:42 | XR_ITS ---
WS: [id number] XR chest 1V portable [id number] REASON FOR EXAM: chest pain, +COVID FINDINGS: Chest is unchanged compared to 08/26/2024. Moderate tortuosity and ectasia of the thoracic aorta. Heart size within normal limits. Coronary artery stents. No acute pulmonary parenchymal or pleural abnormality. Moderate degenerative spondylosis of the thoracic spine. XR/XR chest 1V portable [id number] IMPRESSION: Stable chest with no acute abnormality.
--- NOTE | 2025-02-18 10:42 | ECG_ITS ---
[facility] Test Date: 2025-02-18 Pat Name: Seb Spangler Department: Room: Gender: Male Corporate Law Specialist: : 1945 Requested By: Melissa Lynch Order Number: [id number] Narinder MD: Walker Marino M.D. Measurements Intervals [place] Rate: 75 P: 48 AK: 154 QRS: 28 QRSD: 105 T: -23 QT: 384 QTc: 431 Interpretive Statements SINUS RHYTHM SEPTAL MYOCARDIAL INFARCTION , PROBABLY OLD [40+ ms Q WAVE IN V1/V2] Compared to ECG 08/26/2024 14:35:27 Myocardial infarct finding now present Intraventricular conduction delay no longer present T-wave abnormality no longer present Electronically Signed On 02-19-2025 14:10:29 CDT by Walker Marino M.D. [email or web address]
--- NOTE | 2025-02-18 10:42 | ED_ITS ---
HPI - Chest Pain 2 General: Chief Complaint: Chest Pain Stated Complaint: CP SOB covid+ Time Seen by Provider: 02/18/25 10:37 Source: patient and family () Mode of arrival: wheelchair Limitations: no limitations History of Present Illness: Patient is a 79-year-old male who presents to ED today along with his for evaluation of substernal chest pain. Patient states pain started yesterday evening while sitting on the couch. He states pain has been fairly constant since onset. He denies any radicular symptoms. He does not complain of shortness of breath or difficulty breathing. states he does have a history of coronary artery disease. She states they recently got back [place]. Patient began feeling ill earlier this week with chills and body aches. She states he tested positive for COVID and was placed on Paxlovid. States he is still having a mild productive cough but otherwise feeling better. Last cardiac cath 02/2024 results below: Conclusions 1. No significant disease noted in the Left Main, Left Anterior Descending, Right, or Circumflex coronary arteries. Patent prior LAD stents. 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 This artery is jailed by overlapping LAD stents.. 2. S/p successful revascularization with balloon angioplasty. Stent could not be advanced as diagonal artery is jailed by overlapping LAD stents. 3. 1st Diagonal was treated with a Balloon, and Balloon. Recommendations * Continue dual antiplatelet therapy with aspirin and plavix. * Aggressive risk factor modification. * Outpatient cardiology follow up in 2 weeks. complaint: chest pain Pertinent past history: coronary artery disease and other (+COVID earlier this week) Onset (ago): day(s) (yesterday) Timing of current episode: constant Prior episodes: Yes Onset: during rest Pain location: substernal Pain radiation: none Relieving factors: nothing Exacerbating factors: nothing Context: other (+COVID) Associated symptoms: Deny abdominal pain, dyspnea, fever(s), palpitations, syncope or vomiting Treatment prior to arrival: none Risk Factors: Thoracic aortic dissection risk factors: none Related Data Home Medications ?Medication ?Instructions ?Recorded ?Confirmed cetirizine 10 mg tablet (Zyrtec) 10 mg PO DAILY PRN Al lergy Symptoms 09/30/21 02/18/25 aspirin 81 mg tablet,delayed 81 mg PO DAILY 05/19/24 0 02/18/25 release amlodipine 5 mg tablet 5 mg PO DAILY 08/26/2402/18 ferrous sulfate 325 mg (65 mg 325 mg PO DAILY 02/18/25 02/18/25 iron) tablet (FeroSul) nirmatrelvir 150 mg (10)-ritonavir See Rx Instructions .Route .COMPLEX 02/18/25 02/18/25 100 mg (10) tablets in a dose pack (Paxlovid) Previous Rx's ?Medication ?Instructions ?Recorded pantoprazole 40 mg tablet,delayed 40 mg PO DAILY 90 da ys #90 tabs 05/10/21 release (Protonix) ASO to right #1 ea 10/16/21 metoprolol tartrate 50 mg tablet 50 mg PO BID #180 tab s 02/25/22 A Cloudwise Balance brace to the right #1 ea 12/03/22 atorvastatin 40 mg tablet 40 mg PO DAILY 30 days #30 t abs 03/04/24 clopidogrel 75 mg tablet 75 mg PO DAILY 30 days #30 t abs 03/04/24 Allergies Allergy/AdvReac Type Severity Reaction Status Date / Time codeine Allergy Mild nausea Verified 10/14/24 15:18 Review of Systems 2 Const: Reports: chills and body aches (when he got diagnosed with COVID- improved); Denies: fever(s), fatigue or malaise Card: Reports: chest pain; Denies: palpitations, irregular heart rhythm, edema, swelling of feet/ankles, lightheadedness, syncope, pre-syncope, dyspnea on exertion, orthopnea, leg pain with exertion or acrocyanosis Resp: Reports: non-productive cough; Denies: dyspnea, productive cough, wheezing, pain on inspiration, hemoptysis or chest congestion GI: Denies: abdominal pain, vomiting or diarrhea : Denies: flank pain, dysuria or hematuria Musc: Denies: neck pain, back pain, extremity pain, extremity swelling, joint pain, joint swelling or joint redness Skin/Breast: Denies: rash Neuro: Denies: headache(s), numbness in extremities, weakness in extremities or sensory changes PFSH ED 2 PFSH: Medical History Coronary artery disease Ankle pain, chronic Leukocytosis Closed intertrochanteric fracture of right hip Closed intertrochanteric fracture Acute knee pain Acute hip pain Fall GERD (gastroesophageal reflux disease) KAREN (obstructive sleep apnea) Chronic bronchitis, obstructive Essential hypertension Surgical History Status post open reduction and internal fixation (ORIF) of fracture History of colonoscopy with polypectomy (05/23/20) S/P cataract surgery History of neck surgery History of esophagogastroduodenoscopy (EGD) (05/23/20) Gastritis is duodenitis Family History Mother CAD (coronary artery disease) Social History Smoking and tobacco/nicotine status: never used tobacco/nicotine Alcohol intake: never Substance/Drug Use: never Physical Exam 2 Const: COMMON NORMALS: no acute distress, average body habitus, patient oriented x3, no limitations, healthy appearing, alert and well nourished G ENERAL APPEARANCE: cooperative ORIENTATION/CONSCIOUSNESS: Yes awake, Yes oriented to person, Yes oriented to place and Yes oriented to time Chest: COMMONS NORMALS: normal inspection of the chest and normal palpation of entire chest wall Resp: COMMON NORMALS: normal respiratory effort and clear to auscultation bilaterally AUSCULTATION: clear to auscultation bilaterally Cardio: COMMON NORMALS: regular rate and regular rhythm RATE: regular rate RHYTHM: regular rhythm GI: COMMON NORMALS: Normal to inspection, nondistended, normoactive bowel sounds present, Soft to palpation and non-tender PALPATION: Yes Soft to palpation Extremity: COMMON NORMALS: capillary refill normal, no clubbing, cyanosis or edema, no calf tenderness and no pedal edema GENERAL: Yes normal exam except as noted Neuro: MALIK COMA SCALE: document GCS findings Malik coma scale eye opening: Spontaneous Malik coma scale verbal response: Orientated [place] coma scale motor response: Obey commands Gillette coma scale total score: 15 COMMON NORMALS: patient oriented x3 SENSORIUM/ORIENTATION: Yes alert, Yes oriented to person, Yes oriented to place and Yes oriented to time Skin: COMMON NORMALS: no rashes or lesions noted GENERAL SKIN EXAM: no rashes or lesions noted Course 2 Vital Signs: Vital signs: Vital Signs Temperature 98.5 F 02/18/25 10:41 Pulse Rate 77 02/18/25 14:15 Respiratory Rate 18 02/18/25 12:54 Blood Pressure 123/66 02/18/25 14:15 Pulse Oximetry 98 02/18/25 14:15 Oxygen Delivery Me thod Room Air 02/18/25 10:41 MDM - Chest Pain Medical Decision Making Patient clinically appears in no acute distress. His vital signs are stable. Based on her repeat EKGs are nonischemic. Blood work overall is nonactionable. Mild elevation of his white count of 15.5. Normal procalcitonin. No acute abnormality noted on his CXR. Minor elevations to his BUN/Cr. These have been similarly elevated in the past-I suspect this is due to him taking Paxlovid (one day left-he is on renal dosing) and this should improve. Was given fluids here. His inital trop is at his personal baseline with a negative delta at 2 hr. He already has scheduled follow-up cardiology appointment next week. Patient will be discharged with return precautions. Medical Records I reviewed the patient's medical records. Lab Data I reviewed the patient's lab results. 02/18/25 11:16 02/18/25 11:16 Radiology Impressions Chest X-Ray 02/18/25 10:42 IMPRESSION: Stable chest with no acute abnormality. Laboratory Results WBC 15.51 10^3/uL (3.29-11.43) H 02/18/25 11:16 RBC 3.36 10^6/uL (3.85-5.65) L 02/18/25 11:16 Hgb 10.30 g/dL (11.27-16.99) L 02/18/25 11:16 Hct 32.0 % (37-53) L 02/18/25 11:16 MCV 95.2 fl (82-101) 02/18/25 11:16 MCH 30.7 pg (27-33) 02/18/25 11:16 MCHC 32.2 g/dL (30-55) 02/18/25 11:16 RDW 15.3 % (12.1-15.1) H 02/18/25 11:16 Plt Count 294 10^3/cmm (157-399) 02/18/25 11:16 MPV 9.2 fL (7.4-10.4) 02/18/25 11:16 Neut % (Auto) 88.4 % 02/18/25 11:16 Lymph % (Auto) 6.4 % 02/18/25 11:16 [place] % (Auto) 4.5 % 02/18/25 11:16 Eos % (Auto) 0.0 % 02/18/25 11:16 Baso % (Auto) 0.2 % 02/18/25 11:16 Neut # (Auto) 13.71 10^3/uL (1.8-7.7) H 02/18/25 11:16 Lymph # (Auto) 1.0 10^3/uL (0.8-4.8) 02/18/25 11:16 [place] # (Auto) 0.7 10^3/uL (0.2-0.9) 02/18/25 11:16 Eos # (Auto) 0.0 10^3/uL (0.0-0.8) 02/18/25 11:16 Baso # (Auto) 0.0 10^3/uL (0.0-0.1) 02/18/25 11:16 Nucleated RBC % (auto) 0 % 02/18/25 11:16 Nucleated RBCs # 0.0 /100WBC 02/18/25 11:16 Sodium 138 mmol/L (136-145) 02/18/25 11:16 Potassium 4.6 mmol/L (3.5-5.1) 02/18/25 11:16 Chloride 102 mmol/L (98-107) 02/18/25 11:16 Carbon Dioxide 25 mmol/L (22-29) 02/18/25 11:16 Anion Gap 15.6 (5-19) 02/18/25 11:16 BUN 28 mg/dL (8-23) H 02/18/25 11:16 Creatinine 1.6 mg/dL (0.7-1.2) H 02/18/25 11:16 GFR Calculation Not Reportable 02/18/25 11:16 Glucose 111 mg/dL (65-115) 02/18/25 11:16 Calculated Osmolality 292 mOsm/kg (285-295) 02/18/25 11:16 Calcium 8.9 mg/dL (8.5-10.5) 02/18/25 11:16 Total Bilirubin 0.5 mg/dL (0.15-1.2) 02/18/25 11:16 AST 14 U/L (0-40) 02/18/25 11:16 ALT 11 U/L (0-41) 02/18/25 11:16 Alkaline Phosphatase 104 U/L (40-130) 02/18/25 11:16 Troponin T Baseline 37 ng/L (0-15) H 02/18/25 11:16 Troponin T 120 Minute 31.24 ng/L (0-15) H 02/18/25 13:31 Delta Troponin T -5.76 ABS# (0-10) L 02/18/25 13:31 Total Protein 5.8 g/dL (6.6-8.7) L 02/18/25 11:16 Albumin 3.7 g/dL (3.5-5.2) 02/18/25 11:16 Globulin 2.1 g/dL (1.3-4.6) 02/18/25 11:16 Procalcitonin 0.28 ng/mL (0-0.5) 02/18/25 11:16 All radiology interpretation(s) finalized by discharge Discharge Plan Discharge Patient Disposition: Home Clinical Impression: COVID Chest pain Qualifiers: Chest pain type: unspecified Qualified Code(s): R07.9 - Chest pain, unspecified Condition: Stable Prescriptions: No Action (DME) ASO to right See Rx Instructions .Route .MEDSUPPLY Qty: 1 0RF Rx Instructions: As directed (DME) A Cloudwise Balance brace to the right See Rx Instructions .Route .MEDSUPPLY Qty: 1 0RF Rx Instructions: As directed [facility] [place] aspirin 81 mg tablet,delayed release (DR/EC) 81 mg PO DAILY Protonix 40 mg tablet,delayed release (DR/EC) 40 mg PO DAILY 90 Days Qty: 90 3RF metoprolol tartrate 50 mg tablet 50 mg PO BID Qty: 180 1RF cetirizine [Zyrtec] 10 mg Tablet 10 mg PO DAILY PRN (Reason: Allergy Symptoms) amlodipine 5 mg tablet 5 mg PO DAILY atorvastatin 40 mg tablet 40 mg PO DAILY 30 Days Qty: 30 0RF clopidogrel 75 mg tablet 75 mg PO DAILY 30 Days Qty: 30 0RF ferrous sulfate [FeroSul] 325 mg (65 mg iron) tablet 325 mg PO DAILY Paxlovid 150 mg (10)- 100 mg (10) tablets,dose pack See Rx Instructions .ROUTE .COMPLEX Rx Instructions: Take ONE 150mg tablet nirmatrelvir tablet and one 100mg ritonavir tablet together BY MOUTH TWICE DAILY FOR FIVE DAYS Discharge Orders: Discharge ED (Routine); Ordered 02/18/25 Ordered By: Melissa Lynch Referrals: Raffaele Conroy MD [Primary Care Provider, Family Practice] Patient Instructions: Patient Portal & Joycelyn Instructions Activity Restrictions/Additional Instructions: As we discussed, please follow-up with cardiology next week as scheduled. You may return to the emergency department at anytime for any further concerns you may have. I hope you begin to feel better soon. Print Language: Faroese Coding Level of Care Code ED Used Car Lot Attendant for Faye Nick
--- OUTSIDE RECORDS SUMMARY | 2025-02-18 10:42 | XMS_ITS | Encounter Summary ---
Author Organization [facility] Address [address] [place] [address] Care Team Providers Care Poultry Farm Manager Name Role Phone Cecile Johnston MD Primary Care Provider [phone] Encounter Details Date Type Department Care Team (Latest Contact Info) Description 11/06/2001 Outpatient Historical [facility] Del Ma Jr., MD [address] [place] [address] IMPACTED CERUMEN (Primary Dx); ACUTE URI NOS; Dermatitis due to plant Social History Tobacco Use Types Packs/Day Years Used Date Smoking Tobacco: Never Assessed Sex and Gender Information Value Date Recorded Sex Assigned at Not on file Legal Sex Male 6:10 AM 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
--- OUTSIDE RECORDS SUMMARY | 2025-02-18 10:42 | XMS_ITS | Encounter Summary ---
Author Organization [facility] Address [address] [place] [address] Care Team Providers Care Pull Worker Name Role Phone Cecile Johnston MD Primary Care Provider [phone] Encounter Details Date Type Department Care Team (Latest Contact Info) Description 11/06/1998 Outpatient Historical 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
--- OUTSIDE RECORDS SUMMARY | 2025-02-18 10:42 | XMS_ITS | Encounter Summary ---
Author Organization [facility] Address [address] [place] [address] Care Team Providers Care Returned Item Clerk Name Role Phone Katya Oliva DO Primary Care Provider [phone] Reason for Visit * Reason Onset Date Comments Needs Appointment 09/30/2023 Encounter Details Date Type Department Care Team (Late st Contact Info) Description 09/30/[address] [facility] [address] [facility] [address] [place] [address] Provider, Abstract NO ADDRESS ON FILE Needs Appointment Social History Tobacco Use Types Packs/Day Years Used Date Smoking Tobacco: Former Cigarettes 1 4 0 11/27/1962 - 11/27/1966 Smokeless Tobacco: Never Comments:Didn't like it Alcohol Use Standard Drinks/Week Comments No 0 (1 standard drink = 0.6 oz pur e alcohol) Sex and Gender Information Value Date Recorded Sex Assigned at Not on file Legal Sex Male 5:36 AM CLASSIFICATION COUNSELOR Gender Identity Not on file Sexual Orientation Not on file documented as of this encounter Miscellaneous Notes * Telephone Encounter - Ancelmo Franks - 09/30/2023 11:41 AM CST [facility] Call Center Communications Consult (Provider) Caller: Leonor Relation to Patient: Spouse PHI (Y/N): y MESSAGE Calling to schedule referral [facility] Building Mechanic: YELITZA Mendoza SIFICATION COUNSELOR documented in this encounter Plan of Treatment Upcoming Encounters Date Type Department Care Team (Latest Contact Info) Description 02/23/2025 11:20 AM CDT Office Visit [facility] [address] [facility] [address] [place] [address] Krysta Restrepo NP [address] [facility] [address] [place] [address] 02/23/2025 2:00 PM CDT Office Visit [facility] [place] [address] [place] [address] Cynthia Munguia PA-C [address] [place] [address] [address] [place] [address] 02/28/2025 1:00 PM CDT Appointment [facility] CT Scan [address] [place] [address] Ama Coppola MD [address] [place] [address] 03/09/2025 10:00 AM CDT Hospital Encounter [facility] Endoscopy [address] [place] [address] Ama Coppola MD [address] [place] [address] Lung nodule 03/09/2025 11:00 AM CDT - 03/09/2025 12:34 PM CDT Surgery [facility] Endoscopy [address] [place] [address] Ama Coppola MD [address] [place] [address] BRONCHOSCOPY COMPUTER-ASSISTED/R OBOTIC 04/05/2025 10:00 AM CDT Office Visit [facility] [address] [place] [facility] [place] [address] Leela Lundberg, [facility] [address] [facility] [place] [address] 07/05/2025 10:20 AM CLASSIFICATION COUNSELOR Office Visit [facility] [address] [place] [facility] [place] [address] Leela Lundberg, [facility] [address] [facility] [place] [address] Scheduled Procedures Name Priority Associated Diagnoses Date/Ti me BRONCHOSCOPY COMPUTER-ASSISTED/ROBOTIC Lung nodule 03/09/2025 11:00 AM CDT BRONCHOSCOPY WITH EBUS INCLUDING FLUOROSCOPIC GUIDANCE Lung nodule 03/09/2025 11:00 AM CDT documented as of this encounter Visit Diagnoses Not on filedocumented in this encounter Additional Health Concerns Infection Onset Date Last Indicated Resolved Time COVID-19 02/14/2025 02/14/2025 documented as of this encounter Care Teams Returned Item Clerk Relationship Specialty Start Date End Date Katya Oliva DO [address] [place] [address] PCP - General Family Practice 10/26/24 documented as of this encounter
--- OUTSIDE RECORDS SUMMARY | 2025-02-18 10:42 | XMS_ITS | Encounter Summary ---
Author Organization [facility] Address [address] [place] [address] Care Team Providers Care Mri Supervisor Name Role Phone Ceicle Johnston MD Primary Care Provider [phone] Encounter Details Date Type Department Care Team (Latest Contact Info) Description 09/14/1998 Outpatient Historical [facility] Del Ma Jr., MD [address] [place] [address] Bronchitis, not specified as acute or chronic (Primary Dx) Social History Tobacco Use Types Packs/Day Years Used Date Smoking Tobacco: Never Assessed Sex and Gender Information Value Date Recorded Sex Assigned at Not on file 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
--- OUTSIDE RECORDS SUMMARY | 2025-02-18 10:42 | XMS_ITS | Encounter Summary ---
Author Organization [facility] Address [address] [place] [address] Care Team Providers Care Meter And Service Line Inspector Name Role Phone Cecile Johnston MD Primary Care Provider [phone] Encounter Details Date Type Department Care Team (Late st Contact Info) Description 09/26/2008 Ancillary Orders [facility] CT Scan [address] 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
--- OUTSIDE RECORDS SUMMARY | 2025-02-18 10:42 | XMS_ITS | Encounter Summary ---
Author Organization [facility] Address 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 [address] [facility] [address] [place] [address] Krysta Restrepo NP [address] [facility] [address] [place] [address] 02/23/2025 2:00 PM CDT Office Visit [place] [address] [place] [address] Cynthia Munguia PA-C [address] [facility] [address] [place] [address] 02/28/2025 1:00 PM CDT Appointment [facility] CT Scan [address] [place] [address] Ama Coppola MD [address] [place] [address] 03/09/2025 10:00 AM CDT Hospital Encounter [facility] Endoscopy [address] [place] [address] Ama Coppola MD [address] [place] [address] Lung nodule 03/09/2025 11:00 AM CDT - 03/09/2025 12:34 PM CDT Surgery [facility] Endoscopy [address] [place] [address] Ama Coppola MD [address] [place] [address] BRONCHOSCOPY COMPUTER-ASSISTED/R OBOTIC 04/05/2025 10:00 AM CDT Office Visit [facility] [address] [place] [address] Leela Lundberg FNP [address] [place] [address] 07/05/2025 10:20 AM LABORATORY MILLER Office Visit [facility] [address] [place] [address] Sharyn Lundberganalilia Ramirez, [facility] [address] [place] [address] Scheduled Orders Name Type Priority Associated Diagnoses Orde r Schedule PSA Lab Routine Elevated PSA Expected: 02/15/2025, Expires: Scheduled Procedures Name Priority Associated Diagnoses Date/Ti me BRONCHOSCOPY COMPUTER-ASSISTED/ROBOTIC Lung nodule 03/09/2025 11:00 AM CDT BRONCHOSCOPY WITH EBUS INCLUDING FLUOROSCOPIC GUIDANCE Lung nodule 03/09/2025 11:00 AM CDT documented as of this encounter Visit Diagnoses Diagnosis Elevated PSA- Primary Elevated prostate specific antigen (PSA) Gross hematuria- Primary Elevated PSA Elevated prostate specific antigen (PSA) Lung nodule Solitary pulmonary nodule documented in this encounter Additional Health Concerns Infection Onset Date Last Indicated Resolved Time COVID-19 02/14/2025 02/14/2025 documented as of this encounter Care Teams Funeral Director/Embalmer/Owner Relationship Specialty Start Date End Date Katya Oliva DO [address] [place] [phone] PCP - General Family Practice 10/26/24 documented as of this encounter
--- OUTSIDE RECORDS SUMMARY | 2025-02-18 10:42 | XMS_ITS | Encounter Summary ---
Author Organization [facility] Address [address] [place] [address] Care Team Providers Care Internet Marketing Analyst Name Role Phone Katya Oliva Jaquan HAM Primary Care Provider [phone] Reason for Visit * Reason Onset Date Comments OTHER 10/19/2024 Encounter Details Date Type Department Care Team (Late st Contact Info) Description 10/19/2024 Telephone [facility] Gen Spec Surg [address] [place] [address] Darryl Huber MD [address] [facility] [address] [place] [address] OTHER Social History Tobacco Use Types Packs/Day Years Used Date Smoking Tobacco: Former Cigarettes 1 4 0 11/27/1962 - 11/27/1966 Smokeless Tobacco: Never Comments:Didn't like it Alcohol Use Standard Drinks/Week Comments No 0 (1 standard drink = 0.6 oz pur e alcohol) Sex and Gender Information Value Date Recorded Sex Assigned at Not on file 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 Gender Identity Not on file Sexual Orientation Not on file documented as of this encounter Miscellaneous Notes * Telephone Encounter - Nallely Reyes - 10/19/2024 1:45 PM CDT [facility] spouse called (Leonor) to make appt pilar with Dr Huber for hernia repair, he still documented in this encounter Plan of Treatment Upcoming Encounters Date Type Department Care Team (Latest Contact Info) Description 02/23/2025 11:20 AM CDT Office Visit [facility] [address] [facility] [address] [place] [address] Krysta Restrepo NP [address] [facility] [address] [place] [address] 02/23/2025 2:00 PM CDT Office Visit [facility] [address] [place] [address] Cynthia Munguia PA-C [address] [place] [address] 02/28/2025 1:00 PM CDT Appointment [facility] CT Scan [address] [place] [address] Ama Coppola MD [address] [place] [address] 03/09/2025 10:00 AM CDT Hospital Encounter [facility] Endoscopy [address] [place] [address] Ama Coppola MD [address] [place] [address] Lung nodule 03/09/2025 11:00 AM CDT - 03/09/2025 12:34 PM CDT Surgery [facility] Endoscopy [address] [place] [address] Ama Coppola MD [address] [place] [address] BRONCHOSCOPY COMPUTER-ASSISTED/R OBOTIC 04/05/2025 10:00 AM CDT Office Visit [facility] [address] [place] [address] Leela Lundberg, [facility] [address] [facility] [place] [address] 07/05/2025 10:20 AM HOSPITALITY HOUSE SUPERVISOR Office Visit [facility] [address] [place] [address] Leela Lundberg, [facility] [address] [place] [address] Scheduled Procedures Name Priority Associated Diagnoses Date/Ti me BRONCHOSCOPY COMPUTER-ASSISTED/ROBOTIC Lung nodule 03/09/2025 11:00 AM CDT BRONCHOSCOPY WITH EBUS INCLUDING FLUOROSCOPIC GUIDANCE Lung nodule 03/09/2025 11:00 AM CDT documented as of this encounter Visit Diagnoses Not on filedocumented in this encounter Additional Health Concerns Infection Onset Date Last Indicated Resolved Time COVID-19 02/14/2025 02/14/2025 documented as of this encounter Care Teams Internet Marketing Analyst Relationship Specialty Start Date End Date Katya Oliva DO [address] [place] [address] PCP - General Family Practice 10/26/24 documented as of this encounter
--- OUTSIDE RECORDS SUMMARY | 2025-02-18 10:42 | XMS_ITS | Encounter Summary ---
Author Organization [facility] Address [address] [place] [address] Care Team Providers Care Blog Writer Name Role Phone Cecile Johnston MD Primary Care Provider [phone] Encounter Details Date Type Department Care Team (Latest Contact Info) Description 09/13/2003 Inpatient Historical [facility] Emergency Department [address] [place] [address] Roberto Merida MD NO ADDRESS ON FILE ESOPHAGEAL REFLUX (Primary Dx) Social History Tobacco Use Types Packs/Day Years Used Date Smoking Tobacco: Never Assessed Sex and Gender Information Value Date Recorded Sex Assigned at Not on file 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
--- OUTSIDE RECORDS SUMMARY | 2025-02-18 10:42 | XMS_ITS | Encounter Summary ---
Author Organization [facility] Address [address] [place] [address] Care Team Providers Care Country Printer Apprentice Name Role Phone Katya Oliva DO Primary Care Provider [phone] Reason for Visit * Reason Comments Patient Communication Encounter Details Date Type Department Care Team (Late st Contact Info) Description 02/14/2025 Telephone [facility] Medicine [place] [address] [place] [address] Katya Oliva DO [address] [place] [address] Patient Communication Social History Tobacco Use Types Packs/Day Years Used Date Smoking Tobacco: Former Cigarettes 1 4 0 11/27/1962 - 11/27/1966 Passive Smoke Exposure: Past Smokeless Tobacco: Never Comments:Didn't like it Alcohol Use Standard Drinks/Week Comments No 0 (1 standard drink = 0.6 oz pur e alcohol) Sex and Gender Information Value Date Recorded Sex Assigned at Not on file Legal Sex Male 5:36 AM LOOM TECHNICIAN Gender Identity Not on file Sexual Orientation Not on file documented as of this encounter Miscellaneous Notes * Telephone Encounter - Sahara Vallejo LPN - 02/14/2025 3:28 PM CDT verbalized understanding. Sahara Vallejo LPN, 02/14/2025 3:28 PM * Telephone Encounter - Leela Lundberg FNP - 02/14/2025 3:15 PM CDT Paxlovid was first choice but he has too many medication interaction. Since molnupiravir is too expensive, I went ahead and sent in Paxlovid instead. Tell him to take Paxlovid at least 6 hours apart from Plavix, hydrocodone, and atorvastatin. * Telephone Encounter - Rima Erickson - 02/14/2025 1:14 PM CDT Copied from [facility] #[id number]. Topic: CPA Information Request >> Feb 14, 2025 1:13 PM Rima Tim wrote: Caller is returning phone call from clinic. Caller Name: [facility] Patient/Caregiver Callback Number: Telephone Information: Patient Has Additional Questions Are the credentials of the caregiver who talked to the patient medical reception? No Call Notes: Patient/Caller requires a call back to discuss molnupiravir says its over 300 dollars, please call in something else documented in this encounter Plan of Treatment Upcoming Encounters Date Type Department Care Team (Latest Contact Info) Description 02/23/2025 11:20 AM CDT Office Visit [facility] [address] [facility] [address] [place] [address] Krysta Restrepo NP [address] [facility] [facility] [address] [place] [address] 02/23/2025 2:00 PM CDT Office Visit [facility] Urology [address] [place] [address] Cynthia Munguia PA-C [address] [address] 02/28/2025 1:00 PM CDT Appointment [facility] CT Scan [address] [place] [address] Ama Coppola MD [address] [place] [address] 03/09/2025 10:00 AM CDT Hospital Encounter [facility] Endoscopy [address] [place] [address] Ama Coppola MD [address] [place] [address] Lung nodule 03/09/2025 11:00 AM CDT - 03/09/2025 12:34 PM CDT Surgery [facility] Endoscopy [address] [place] [address] Ama Coppola MD [address] [place] [address] BRONCHOSCOPY COMPUTER-ASSISTED/R OBOTIC 04/05/2025 10:00 AM CDT Office Visit [facility] [place] [address] [place] [address] Leela Lundberg [facility] [address] [place] [address] 07/05/2025 10:20 AM LOOM TECHNICIAN Office Visit [facility] [address] [place] [address] Leela Lundberg [facility] [address] [place] [address] Scheduled Procedures Name Priority Associated Diagnoses Date/Ti me BRONCHOSCOPY COMPUTER-ASSISTED/ROBOTIC Lung nodule 03/09/2025 11:00 AM CDT BRONCHOSCOPY WITH EBUS INCLUDING FLUOROSCOPIC GUIDANCE Lung nodule 03/09/2025 11:00 AM CDT documented as of this encounter Visit Diagnoses Not on filedocumented in this encounter Additional Health Concerns Infection Onset Date Last Indicated Resolved Time COVID-19 02/14/2025 02/14/2025 documented as of this encounter Care Teams Country Printer Apprentice Relationship Specialty Start Date End Date Katya Oliva DO [address] [place] [address] PCP - General Family Practice 10/26/24 documented as of this encounter
--- OUTSIDE RECORDS SUMMARY | 2025-02-18 10:42 | XMS_ITS | Encounter Summary ---
Author Organization [facility] Address [address] [place] [address] Care Team Providers Care Guide Escort Name Role Phone Katya Oliva Primary Care Provider [phone] Encounter Details Date Type Department Care Team (Late st Contact Info) Description 02/15/2025 External Device Data [facility] ABSTRACTION Provider, Abstract NO ADDRESS ON FILE Social History Tobacco Use Types Packs/Day Years Used Date Smoking Tobacco: Former Cigarettes 1 4 0 11/27/1962 - 11/27/1966 Passive Smoke Exposure: Past Smokeless Tobacco: Never Comments:Didn't like it Alcohol Use Standard Drinks/Week Comments No 0 (1 standard drink = 0.6 oz pur e alcohol) Sex and Gender Information Value Date Recorded Sex Assigned at Not on file Legal Sex Male 5:36 AM CLUB LOUNGE ATTENDANT Gender Identity Not on file Sexual Orientation Not on file documented as of this encounter Plan of Treatment Upcoming Encounters Date Type Department Care Team (Latest Contact Info) Description 02/23/2025 11:20 AM CDT Office Visit [facility] [address] [facility] [address] [place] [address] Krysta Restrepo NP [address] [facility] [address] [place] [address] 02/23/2025 2:00 PM CDT Office Visit [facility] Urology [address] [place] [address] Cynthia Munguia PA-C [address] [place] [address] [address] [place] [address] 02/28/2025 1:00 PM CDT Appointment [facility] Scan [address] [place] [address] Ama Coppola MD [address] [place] [address] 03/09/2025 10:00 AM CDT Hospital Encounter [facility] Endoscopy [address] [place] [address] Ama Coppola MD [address] [place] [address] Lung nodule 03/09/2025 11:00 AM CDT - 03/09/2025 12:34 PM CDT Surgery [facility] Endoscopy [address] [place] [address] Ama Coppola MD [address] [place] [address] BRONCHOSCOPY COMPUTER-ASSISTED/R OBOTIC 04/05/2025 10:00 AM CDT Office Visit [facility] [address] [place] [address] Leela Lundberg [facility] [address] [place] [address] 07/05/2025 10:20 AM CLUB LOUNGE ATTENDANT Office Visit [facility] [address] [place] [address] Leela Lundberg ELECTRICAL AUTOMATION ENGINEER [address] [place] [address] Scheduled Procedures Name Priority Associated Diagnoses Date/Ti me BRONCHOSCOPY COMPUTER-ASSISTED/ROBOTIC Lung nodule 03/09/2025 11:00 AM CDT BRONCHOSCOPY WITH EBUS INCLUDING FLUOROSCOPIC GUIDANCE Lung nodule 03/09/2025 11:00 AM CDT documented as of this encounter Visit Diagnoses Not on filedocumented in this encounter Additional Health Concerns Infection Onset Date Last Indicated Resolved Time COVID-19 02/14/2025 02/14/2025 documented as of this encounter Care Teams Guide Escort Relationship Specialty Start Date End Date Katya Oliva DO [address] [place] [phone] PCP - General Family Practice 10/26/24 documented as of this encounter
--- OUTSIDE RECORDS SUMMARY | 2025-02-18 10:42 | XMS_ITS | Encounter Summary ---
Author Organization [facility] Address [address] [place] [address] Care Team Providers Care Reproducer Name Role Phone Katya Oliva DO Primary Care Provider [phone]- [phone] Reason for Visit * Reason Onset Date Comments Medical Records 03/04/2024 Encounter Details Date Type Department Care Team (Late st Contact Info) Description 03/04/2024 Telephone [facility] [address] [facility] [address] [place] [address] Andrew Hobbs MD [address] [facility] [address] [place] [address] Medical Records Social History Tobacco Use Types Packs/Day Years Used Date Smoking Tobacco: Former Cigarettes 1 4 0 11/27/1962 - 11/27/1966 Smokeless Tobacco: Never Comments:Didn't like it Alcohol Use Standard Drinks/Week Comments No 0 (1 standard drink = 0.6 oz pur e alcohol) Sex and Gender Information Value Date Recorded Sex Assigned at Not on file Legal Sex Male 5:36 AM CIVIL ENGINEERING DRAFTER Gender Identity Not on file Sexual Orientation Not on file documented as of this encounter Miscellaneous Notes * Telephone Encounter - Lisa Raymond - 03/04/2024 2:00 PM CDT Faby (Provider) Caller: Pastora castellanos/ Medical Records [facility] [place] MESSAGE Caller states they will be faxing over a request for release of meidcal records. FYI only Cardiology Ux Consultant: Meagan Raymond documented in this encounter Plan of Treatment Upcoming Encounters Date Type Department Care Team (Latest Contact Info) Description 02/23/2025 11:20 AM CDT Office Visit [facility] [address] [facility] [address] [place] [address] Krysta Restrepo NP [address] [facility] [address] [place] [address] 02/23/2025 2:00 PM CDT Office Visit [facility] [address] [place] [address] Cynthia Munguia PA-C [address] [place] [address] 02/28/2025 1:[address] [facility] CT Scan [address] [place] [address] Ama Coppola MD [address] [place] [address] 03/09/2025 10:00 AM CDT Hospital Encounter [facility] Endoscopy [address] [place] [address] Ama Coppola MD [address] [place] [address] Lung nodule 03/09/2025 11:00 AM CDT - 03/09/2025 12:[address] [facility] Endoscopy [address] [place] [address] Ama Coppola MD [address] [place] [address] BRONCHOSCOPY COMPUTER-ASSISTED/R OBOTIC 04/05/2025 10:00 AM CDT Office Visit [facility] [address] [place] [address] Leela Lundberg James, [facility] [address] [place] [address] 07/05/2025 10:20 AM CIVIL ENGINEERING DRAFTER Office Visit [facility] [address] [place] [address] Leela Lundberg James, [facility] [address] [place] [address] Scheduled Procedures Name Priority Associated Diagnoses Date/Ti me BRONCHOSCOPY COMPUTER-ASSISTED/ROBOTIC Lung nodule 03/09/2025 11:00 AM CDT BRONCHOSCOPY WITH EBUS INCLUDING FLUOROSCOPIC GUIDANCE Lung nodule 03/09/2025 11:00 AM CDT documented as of this encounter Visit Diagnoses Not on filedocumented in this encounter Additional Health Concerns Infection Onset Date Last Indicated Resolved Time COVID-19 02/14/2025 02/14/2025 documented as of this encounter Care Teams Reproducer Relationship Specialty Start Date End Date Katya Oliva DO [address] [place] [id number] PCP - General Family Practice 10/26/24 documented as of this encounter
--- OUTSIDE RECORDS SUMMARY | 2025-02-18 10:42 | XMS_ITS | Encounter Summary ---
Author Organization [facility] Address [address] [place] [address] Care Team Providers Care Blow Torch Operator Name Role Phone Cecile Johnston MD Primary Care Provider [phone] Encounter Details Date Type Department Care Team (Latest Contact Info) Description 04/19/1999 Outpatient Historical [facility] Del Ma Jr., MD [address] [place] [address] Unspecified essential hypertension (Primary Dx); Acute pharyngitis; Unspecified sinusitis (chronic) Social History Tobacco Use Types Packs/Day Years Used Date Smoking Tobacco: Never Assessed Sex and Gender Information Value Date Recorded Sex Assigned at Not on file Legal Sex Male 6:10 AM ROADS SUPERVISOR Gender Identity Not on file Sexual Orientation Not on file documented as of this encounter Plan of Treatment Not on file documented as of this encounter Visit Diagnoses Diagnosis Unspecified essential hypertension- Primary Acute pharyngitis Unspecified sinusitis (chronic) documented in this encounter Care Teams Blow Torch Operator Relationship Specialty Start Date End Date Cecile Johnston MD PCP - General Family Practice 02/07/12 documented as of this encounter
--- OUTSIDE RECORDS SUMMARY | 2025-02-18 10:42 | XMS_ITS | Encounter Summary ---
Author Organization [facility] Address [address] [place] [address] Care Team Providers Care Sumatra Opener Name Role Phone Katya Oliva Primary Care Provider [phone] Encounter Details Date Type Department Care Team (Late st Contact Info) Description 02/14/2025 Orders Only [facility] Medicine [place] [address] [place] [address] [facility] [address] [place] [address] COVID-19 virus detected (Primary Dx) Social History Tobacco Use Types [...] on file Legal Sex Male 5:36 AM VP PATIENT Gender Identity Not on file Sexual Orientation Not on file documented as of this encounter Plan of Treatment Upcoming Encounters Date Type Department Care Team (Latest Contact Info) Description 02/23/2025 11:20 AM CDT Office Visit [facility] [address] [facility] [address] [place] [address] Krysta Restrepo, OLEKSANDR [address] [facility] [address] [place] [phone] 02/23/2025 2:00 PM CDT Office Visit [facility] Urology [place] [address] [place] [address] Cynthia Munguia PA-C [address] [facility] [address] [place] [address] 02/28/2025 1:00 PM CDT Appointment [facility] CT Scan [address] [place] [address] Ama Coppola MD [address] [place] [address] 03/09/2025 10:00 AM CDT Hospital Encounter [facility] Endoscopy [address] [place] [address] Ama Coppola MD [address] [place] [address] Lung nodule 03/09/2025 11:00 AM CDT - 03/09/2025 12:34 PM CDT Surgery [facility] Endoscopy [address] [place] [address] Ama Coppola MD [address] [place] [address] BRONCHOSCOPY COMPUTER-ASSISTED/R OBOTIC 04/05/2025 10:00 AM CDT Office Visit [facility] [address] [place] [address] Leela Lundberg, IT OPERATIONS ANALYST [address] [place] [address] 07/05/2025 10:20 AM VP PATIENT Office Visit [facility] [address] [place] [address] Leela Lundberg, MIKEL [address] [place] [address] Scheduled Procedures Name Priority Associated Diagnoses Date/Ti me BRONCHOSCOPY COMPUTER-ASSISTED/ROBOTIC Lung nodule 03/09/2025 11:00 AM CDT BRONCHOSCOPY WITH EBUS INCLUDING FLUOROSCOPIC GUIDANCE Lung nodule 03/09/2025 11:00 AM CDT documented as of this encounter Visit Diagnoses Diagnosis COVID-19 virus detected- Primary Gross hematuria- Primary Elevated PSA Elevated prostate specific antigen (PSA) Lung nodule Solitary pulmonary nodule documented in this encounter Additional Health Concerns Infection Onset Date Last Indicated Resolved Time COVID-19 02/14/2025 02/14/2025 documented as of this encounter Care Teams Sumatra Opener Relationship Specialty Start Date End Date Katya Oliva DO [address] [place] [address] PCP - General Family Practice 10/26/24 documented as of this encounter
--- OUTSIDE RECORDS SUMMARY | 2025-02-18 10:42 | XMS_ITS | Encounter Summary ---
Author Organization [facility] Address [address] [place] [address] Care Team Providers Care Checker Name Role Phone Cecile Johnston MD Primary Care Provider Encounter Details Date Type Department Care Team (Latest Contact Info) Description 09/27/1998 Outpatient Historical [facility] Del Ma Jr., MD [address] [place] [address] Acute upper respiratory infections of unspecified site (Primary Dx) Social History Tobacco Use Types Packs/Day Years Used Date Smoking Tobacco: Never Assessed Sex and Gender Information Value Date Recorded Sex Assigned at Not on file Legal Sex Male 6:10 AM GROUP CONTRACT ANALYST Gender Identity Not on file Sexual Orientation Not on file documented as of this encounter Plan of Treatment Not on file documented as of this encounter Visit Diagnoses Diagnosis Acute upper respiratory infections of unspecified site- Primary documented in this encounter Care Teams Checker Relationship Specialty Start Date End Date Cecile Johnston MD PCP - General Family Practice 02/07/12 documented as of this encounter
--- OUTSIDE RECORDS SUMMARY | 2025-02-18 10:42 | XMS_ITS | Encounter Summary ---
Author Organization [facility] Address [address] [place] [address] Care Team Providers Care Supervisor Crack Off Name Role Phone Katya Oliva DO Primary Care Provider [phone] Reason for Visit * Reason Comments Clinical Consult Before Scheduling Encounter Details Date Type Department Care Team (Late st Contact Info) Description 02/18/2025 Telephone [facility] Medicine [place] [address] [place] [address] Katya Oliva DO [address] [place] [address] Clinical Consult Before Scheduling Social History Tobacco Use Types Packs/Day Years Used Date Smoking Tobacco: Former Cigarettes 1 4 0 11/27/1962 - 11/27/1966 Passive Smoke Exposure: Past Smokeless Tobacco: Never Comments:Didn't like it Alcohol Use Standard Drinks/Week Comments No 0 (1 standard drink = 0.6 oz pur e alcohol) Sex and Gender Information Value Date Recorded Sex Assigned at Not on file Legal Sex Male 5:36 AM DRUG SAFETY ASSOCIATE Gender Identity Not on file Sexual Orientation Not on file documented as of this encounter Miscellaneous Notes * Telephone Encounter - Keren Graff RN - 02/18/2025 9:57 AM CDT Adult patient complaining of chest pain: Type of pain: aching Location of pain: mid chest Pain radiates: Left arm and Right arm Intensity: 6 out of 10 Onset of new/worsening symptoms: new The patient has the following symptoms or concerns: [] Dyspnea, shortness of breath, difficulty breathing, orthopnea [] Mild (no SOB at rest, mild SOB with walking, speaks normally in sentences, can lay down flat, noretractions.) [x] Moderate (SOB at rest, speaks in phrases, prefers to sit (can't lay down flat), mild retractions.) [] Severe (severe SOB at rest, speaks in single words, struggling to breathe, severe retractions. Exception: these symptoms are transient and only present when coughing) [x] Palpitations [] Clammy or diaphoretic [] Pale skin [] Flushed skin [x] Tachycardia [] Bradycardia [] Syncope [x] Near syncope [] Confusion [] Anxious or restless [] Claudication [] Lower extremity swelling [] Mild (pedal edema - swelling limited to foot and ankle, pitting edema < 1/4 inch (6 mm) deep,rest and elevation eliminate most or all swelling [] Moderate (swelling of lower leg to knee, pitting edema > 1/4 inch (6 mm) deep, rest and elevation only partially reduce swelling) [] Severe (swelling extends above knee, facial or hand swelling present) [] Epigastric pain [] Nausea [x] History of CAD What makes the pain better? no What makes the pain worse? no [] Has tried medication or treatment at home Medications/Treatments tried: Other pertinent information: Patients states that patient was diagnosed with Covid on Friday the . He started paxlovid and symptoms seemed to have got better. Patient is complaining of chest pain and shortness of breathlate last night and has progressively got worse. He C/O tachycardia, palpations, and feeling dizzy. Patient has a history of heart issues. Advised that patient needs to go to directly to the ER.She voiced understanding. / Status: Patient likely cannot become . * Telephone Encounter - Anahi Husain - 02/18/2025 9:56 AM CDT Copied from [facility] #[id number]. Topic: Symptomatic Care >> Feb 18, 2025 9:54 AM Anahi Edmonds wrote: Has this patient seen any provider (current or former) at the requested clinic in the past? Yes, Select the appropriate age range and symptom Patient has symptoms and is seeking care. Caller Name: Leonor ( on PHI) Callback Number: Telephone Information: Call Notes: Patient was seen in 02/14/25 and received treatment for covid. Yesterday he started having chest pains with difficulty breathing. Age Range/Symptom: Adult 18+ - Transferred to [facility] line and Keren answered call. documented in this encounter Plan of Treatment Upcoming Encounters Date Type Department Care Team (Latest Contact Info) Description 02/23/2025 11:20 AM CDT Office Visit [facility] [address] [facility] [address] [place] [address] Krysta Restrepo NP [address] [facility] [address] [place] [address] 02/23/2025 2:00 PM CDT Office Visit [facility] Urology [place] [address] [place] [address] Cynthia Munguia PA-C [address] [facility] [address] [place] [address] 02/28/2025 1:00 PM CDT Appointment [facility] CT Scan [address] [place] [address] Ama Coppola MD [address] [place] [address] 03/09/2025 10:00 AM CDT Hospital Encounter [facility] Endoscopy [address] [address] Ama Coppola MD [address] [place] [address] Lung nodule 03/09/2025 11:00 AM CDT - 03/09/2025 12:34 PM CDT Surgery [facility] Endoscopy [address] [place] [address] Ama Coppola MD [address] [place] [address] BRONCHOSCOPY COMPUTER-ASSISTED/R OBOTIC 04/05/2025 10:00 AM CDT Office Visit [facility] [address] [place] [address] Leela Lundberg, [facility] [address] [place] [address] 07/05/2025 10:20 AM DRUG SAFETY ASSOCIATE Office Visit [facility] [address] [place] [address] Leela Lundberg, [facility] [address] [place] [address] Scheduled Procedures Name Priority Associated Diagnoses Date/Ti me BRONCHOSCOPY COMPUTER-ASSISTED/ROBOTIC Lung nodule 03/09/2025 11:00 AM CDT BRONCHOSCOPY WITH EBUS INCLUDING FLUOROSCOPIC GUIDANCE Lung nodule 03/09/2025 11:00 AM CDT documented as of this encounter Visit Diagnoses Not on filedocumented in this encounter Additional Health Concerns Infection Onset Date Last Indicated Resolved Time COVID-19 02/14/2025 02/14/2025 documented as of this encounter Care Teams Supervisor Crack Off Relationship Specialty Start Date End Date Katya Oliva DO [address] [place] [address] PCP - General Family Practice 10/26/24 documented as of this encounter
--- OUTSIDE RECORDS SUMMARY | 2025-02-18 10:42 | XMS_ITS | Encounter Summary ---
Author Organization [facility] Address 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 Friday Exposure: Unknown Just returned from a trip [] Exposure to influenza in last 7 days [] Exposure to Covid-19 in last 7 days Has patient done at home covid or flu testing: No99.7 99.4 The patient has the following symptoms or concerns: Systemic: [] Fever of 100.4 or greater --- [x] Chills [x] Body aches [] Headache Respiratory: [x] Chest congestion [x] Cough Productive: [x] Yes [] No Color: [] [place]/white [] yellow [] green [] brown [] bloody [] Shortness of breath or difficulty breathing [x] Wheezing [] History of asthma or COPD Nasal/sinus: [x] Sinus pain or congestion [] Nasal drainage Color: [] clear/white [] yellow [] green [] brown [] bloody [] Loss of smell or taste [] Sneezing [] History of seasonal allergies Throat: [x] Sore throat If yes, [] White patches in throat [] Swollen glands GI: [] Nausea [] Vomiting [x] Diarrhea INFORMATIONAL MESSAGE ONLY. Appointment scheduled regarding this concern: 02/14/2025 Leela Lundberg FNP Phone Management by Nurse: For cough: recommend plain guaifenesin products (eg Delsym, Mucinex), follow package instructions If tried and failed, document and route to provider for consideration of prescription therapy Recommend home covid test and home flu testing if not done already. If unable to do a home test, follow clinic specific testing recommendations for COVID and/or influenza testing If patient has known exposure to influenza to from another member of their household and are interested in an order for prophylaxis, document their personal risk factors, details of the exposure and route to provider for consideration of prescription therapy Encourage fluids unless on fluid restriction. Use Acetaminophen or Ibuprofen for fever or body aches - see appendix for contraindications and precautions Use humidifier if available if complaining of head or chest congestion Use saline nasal spray or Flonase for nasal congestion. When and Why to Call Us Back: If new or worsening symptoms develop or if no improvement after 7 days. Amita LIMA * Telephone Encounter - Frederick Villa - 02/14/2025 8:23 AM CDT Copied from [facility] #[id number]. Topic: Symptomatic Care >> Feb 14, 2025 8:18 AM Frederick Edmonds wrote: Has this patient seen any provider (current or former) at the requested clinic in the past? Yes, Select the appropriate age range and symptom Patient has symptoms and is seeking care. Caller Name: Leonor Callback Number: [phone] Call Notes: Patient came home from a trip and started 02/12/25 he coughing, congestion, sore throat,low grade tempature 99.7 and 99.4 but not today, diarrhea 02/12 and Friday but nothing. Age Range/Symptom: Adult 18+ - Transferred to [facility] line and Amita answered call. documented in this encounter Plan of Treatment Upcoming Encounters Date Type Department Care Team (Latest Contact Info) Description 02/23/2025 11:20 AM CDT Office Visit [facility] [address] [facility] [address] [place] [address] Krysta Restrepo NP [address] [facility] [address] [place] [address] 02/23/2025 2:00 PM CDT Office Visit [facility] Urology [address] [place] [address] Cynthia Munguia PA-C [address] [place] [address] 02/28/2025 1:00 PM CDT Appointment [facility] CT Scan [address] [place] [address] Ama Coppola MD [address] [place] [address] 03/09/2025 10:00 AM CDT Hospital Encounter [facility] Endoscopy [address] [facility] [place] [address] Ama Coppola MD [address] [place] [address] Lung nodule 03/09/2025 11:00 AM CDT - 03/09/2025 12:34 PM CDT Surgery [facility] Endoscopy [address] [place] [address] Ama Coppola MD [address] [place] [address] BRONCHOSCOPY COMPUTER-ASSISTED/R OBOTIC 04/05/2025 10:00 AM CDT Office Visit [facility] [address] [place] [address] Leela Lundberg, 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 [address] [place] [address] Scheduled Procedures Name Priority Associated Diagnoses Date/Ti me BRONCHOSCOPY COMPUTER-ASSISTED/ROBOTIC Lung nodule 03/09/2025 11:00 AM CDT BRONCHOSCOPY WITH EBUS INCLUDING FLUOROSCOPIC GUIDANCE Lung nodule 03/09/2025 11:00 AM CDT documented as of this encounter Visit Diagnoses Not on filedocumented in this encounter Care Teams Hemmer Lockstitch Relationship Specialty Start Date End Date Katya Oliva DO [address] [place] [address] PCP - General Family Practice 10/26/24 documented as of this encounter
--- OUTSIDE RECORDS SUMMARY | 2025-02-18 10:42 | XMS_ITS | Encounter Summary ---
Author Organization [facility] Address [address] [place] [address] Care Team Providers Care Manager Programs Name Role Phone Katiana Olivaoracoreen Partida DO Primary Care Provider [phone] Reason for Visit * Reason Onset Date Comments PT having chest pains and some SOB 03/02/2024 Information 03/02/2024 Encounter Details Date Type Department Care Team (Late st Contact Info) Description 03/02/2024 Telephone [facility] [address] [facility] [address] [place] [address] Andrew Hobbs MD [address] [facility] [address] [place] [address] PT having chest pains and some SOB; Information Social History Tobacco Use Types Packs/Day Years Used Date Smoking Tobacco: Former Cigarettes 1 4 0 11/27/1962 - 11/27/1966 Smokeless Tobacco: Never Comments:Didn't like it Alcohol Use Standard Drinks/Week Comments No 0 (1 standard drink = 0.6 oz pur e alcohol) Sex and Gender Information Value Date Recorded Sex Assigned at Not on file 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 Gender Identity Not on file Sexual Orientation Not on file documented as of this encounter Miscellaneous Notes * Telephone Encounter - Princess Qureshi Denise - 03/03/2024 10:41 AM CDT Faby (Provider) Caller: Leonor Relation to Patient: Spouse PHI (Y/N): y MESSAGE Caller would like to inform cardiology that pt was taken to ED and admitted overnight and had a heart cath done today with 80% blockage Cardiology Wireless Watcher: Princess Qureshi * Telephone Encounter - Lisa Raymond - 03/02/2024 3:25 PM CDT Faby (Provider) Caller: Leonor Relation to Patient: PHI (Y/N): Y (home) MESSAGE Caller states PT has pains in his chest again the same way it was before his hospitalization. Pulsating pain, little needles. From chest, under arm and into his back. PT on the phone with the Nurse at the same time as with me. I dropped off the call. Cardiology Wireless Watcher: Meagan Raymond documented in this encounter Plan of Treatment Upcoming Encounters Date Type Department Care Team (Latest Contact Info) Description 02/23/2025 11:20 AM CDT Office Visit [facility] [address] [facility] [address] [place] [address] Krysta Restrepo NP [address] [facility] [address] [place] [address] 02/23/2025 2:00 PM CDT Office Visit [facility] Urology [address] [place] [address] Cynthia Munguia PA-C [address] [place] [address] 02/28/2025 1:00 PM CDT Appointment [facility] CT Scan [address] [place] [address] Ama Coppola MD [address] [place] [address] 03/09/2025 10:00 AM CDT Hospital Encounter [facility] Endoscopy [address] [place] [address] Ama Coppola MD [address] [place] [address] Lung nodule 03/09/2025 11:00 AM CDT - 03/09/2025 12:34 PM CDT Surgery [facility] Endoscopy [address] [place] [address] Ama Coppola MD [address] [place] [address] BRONCHOSCOPY COMPUTER-ASSISTED/R OBOTIC 04/05/2025 10:00 AM CDT Office Visit [facility] [address] [place] [address] Le[address] Lund[address] [facility] [address] [place] [address] 07/05/2025 10:20 AM MILL RECORDER Office Visit [facility] [address] [place] [address] Leela Lundberg, [facility] [address] [place] [address] Scheduled Procedures Name Priority Associated Diagnoses Date/Ti me BRONCHOSCOPY COMPUTER-ASSISTED/ROBOTIC Lung nodule 03/09/2025 11:00 AM CDT BRONCHOSCOPY WITH EBUS INCLUDING FLUOROSCOPIC GUIDANCE Lung nodule 03/09/2025 11:00 AM CDT documented as of this encounter Visit Diagnoses Not on filedocumented in this encounter Additional Health Concerns Infection Onset Date Last Indicated Resolved Time COVID-19 02/14/2025 02/14/2025 documented as of this encounter Care Teams Manager Programs Relationship Specialty Start Date End Date Katya Oliva DO [address] [place] [address] PCP - General Family Practice 10/26/24 documented as of this encounter
--- OUTSIDE RECORDS SUMMARY | 2025-02-18 10:42 | XMS_ITS | Clinical Summary ---
Author Organization [facility] Address [address] [facility] Attn: Epic Prelude ADT [place] [address] Care Team Providers Care Director Of Outpatient Services Name Role Phone Katya Oliva DO Primary Care Provider [phone] Allergies Active Allergy Reactions Criticality Noted Date Comments Codeine Nausea and Vomiting Low 02/07/2012 Medications metoprolol tartrate (LOPRESSOR) 50 mg tablet Take 50 mg by mouth 2 times daily. 11/17/19 22 Active pantoprazole (PROTONIX) 40 mg Tablet, Delayed Release (E.C.) Take 40 mg by mouth daily. 11/17/19 22 Active aspirin (ECOTRIN EC) 81 mg Tablet, Delayed Release (E.C.)Indication s:Aortic valve insufficiency, etiology of cardiac valve disease unspecified Take 1 Tablet (81 mg) by mouth daily. 12/15/19 24 Active nitroglycerin (NITROSTAT) 0.4 mg Tablet, Sublingual Place 1 Tablet (0.4 mg) under tongue every 5 minutes as needed for Chest Pain. 30 Tablet 3 12/23/19 24 Active traMADoL (ULTRAM) 50 mg tablet Take 1 Tablet by mouth every 6 hours. 08/05/19 25 Active HYDROcodone-acet aminophen (NORCO) 7.5-325 mg TabletIndication s:Post-op pain Take 1 Tablet by mouth every 4 hours as needed for Pain. Max Daily Amount: 6 Tablets 20 Tablet 11/17/19 25 Active clopidogreL (Plavix) 75 mg TabletIndication s:Coronary artery disease, unspecified vessel or lesion type, unspecified whether angina present, unspecified whether kenaitze or transplanted heart Take 1 Tablet (75 mg) by mouth daily. 100 Tablet 3 12/29/19 25 Active atorvastatin (Lipitor) 40 mg tabletIndication s:Dyslipidemia Take 1 Tablet (40 mg) by mouth daily. 100 Tablet 3 12/29/19 25 Active amLODIPine (NORVASC) 5 mg tabletIndication s:HTN (hypertension), benign Take 1 Tablet (5 mg) by mouth daily. 90 Tablet 3 01/20/20 25 Active ferrous sulfate 325 mg (65 mg iron) tabletIndication s:Other iron deficiency anemia Take 1 Tablet (325 mg) by mouth daily. 90 Tablet 2 01/25/20 25 Active nirmatrelvir-rit onavir (PAXLOVID) 150-100 mg oral pack (renal dosing)Indicatio ns:COVID-19 virus detected Take 150 mg nirmatrelvir (1 tablet) and 100 mg ritonavir (1 tablet) by mouth together twice daily for 5 days. 1 Dose Pack 02/15/20 25 025 Active molnupiravir 200 mg capsuleIndicatio ns:COVID-19 virus detected Take 4 Capsules (800 mg) by mouth every 12 hours for 5 days. 40 Capsule 02/15/20 25 025 Discontinu ed(Alterna te therapy prescribed ) Active Problems Problem Noted Date Diagnosed Date Benign prostatic hyperplasia with urinary freque ncy 01/19/2025 Spigelian hernia 10/26/2024 Right lower lobe pulmonary nodule 10/26/2024 Elevated PSA 10/26/2024 Abnormal computed tomography angiography (CTA) 0 12/16/2023 Status post total right knee replacement 022 History of tobacco use 06/04/2022 Diastolic dysfunction 06/04/2022 Anemia 06/04/2022 Elevated serum creatinine 06/04/2022 Aortic regurgitation 06/04/2022 Status post total replacement of right hip 12/11 Status post cervical spinal fusion 11/24/2015 Cervical myelopathy 03/23/2015 GERD without esophagitis 02/07/2012 Inflammatory arthritis Hearing reduced HTN (hypertension), benign Resolved Problems Problem Noted Date Diagnosed Date Resolved Date Primary osteoarthritis of right knee 06/04/2022 07/03/2022 Closed comminuted intertroch anteric fracture of proximal end of right femur with malunion 11/22/2021 12/12/2021 Precordial pain 07/08/2015 06/04/2022 Hoarseness 02/07/2012 10/26/2024 Dysphagia, pharyngoesophageal phase 02/07/2012 10/26/2024 Preop general physical exam 10/26/2024 Encounters Date Type Department Care Team Description 02/18/2025 Telephone [facility] [address] [place] [address] Katya Oliva, DO Clinical Consult Before Scheduling 02/15/2025 External Device Data STL ABSTRACTION Provider, Abstract 02/15/2025 Orders Only [facility] [address] [place] [phone] Priscilla Sutherland RN Elevated PSA (Primary Dx) 02/14/2025 10:00 AM CDT Office Visit [facility] [address] [place] [address] Leela Lundberg, BELLY PACKER COVID-19 virus detected (Primary Dx); Other iron deficiency anemia 02/14/2025 Orders Only [facility] [address] [place] [address] Leela Lundberg, BELLY PACKER COVID-19 virus detected (Primary Dx) 02/14/2025 Telephone [facility] [address] [place] [address] Katya Oliva, DO Patient Communication 02/14/2025 Telephone [facility] [address] [place] [address] Katya Oliva, DO Clinical Consult Before Scheduling 02/01/2025 External Device Data STL ABSTRACTION Provider, Abstract 01/25/2025 Orders Only [facility] [address] [place] [phone] Ama Coppola MD Lung nodule (Primary Dx); Pre-op testing 01/24/2025 Orders Only [facility] [address] [place] [phone] Leela Lundberg FNP Other iron deficiency anemia (Primary Dx) 01/20/2025 Results Follow-Up [facility] [address] [place] [phone] Leela Lundberg FNP LIPID PANEL, TSH, COMPREHENSIVE METABOLIC PANEL, CBC WITH DIFFERENTIAL 01/19/2025 12:00 PM CDT Office Visit [facility] [address] [place] [address] Leela Lundberg FNP HTN (hypertension), benign (Primary Dx); Right lower lobe pulmonary nodule; Spigelian hernia; Elevated PSA; Benign prostatic hyperplasia with urinary frequency 01/19/2025 Orders Only [facility] [address] [place] [address] Keren Black HTN (hypertension), benign 01/11/2025 External Device Data STL ABSTRACTION Provider, Abstract 12/28/2024 Orders Only [place] [address] [place] [address] Hollie Gutierrez RN Dyslipidemia 12/26/[address] [facility] [address] [place] [address] Andrew Hobbs MD Coronary artery disease, unspecified vessel or lesion type, unspecified whether angina present, unspecified whether kenaitze or transplanted heart 12/26/[address] [facility] [address] [place] [address] Andrew Hobbs MD HTN (hypertension), benign; Dyslipidemia 12/23/[address] [facility] [address] [place] [address] Hollie Gutierrez RN Coronary artery disease, unspecified vessel or lesion type, unspecified whether angina present, unspecified whether kenaitze or transplanted heart from Last 3 Months Immunizations Immunization Administration Dates Next Due Influenza Seasonal Unspecified Formulation IM Family History Medical History Relation Name Comments Alcohol abuse Father Chris Spangler Cancer Father Chris Spangler unknown type Chronic Liver Disease Father Chris Spangler Diabetes Half-Brother 1 Cancer Half-Brother 2 Diabetes Half-Brother 2 Liver Cancer Half-Sister 1 No Known Problems Half-Sister 2 [place] No Known Problems Half-Sister 3 Susan Depression Mother [place] Diabetes Mother [place] Heart Disease Mother Zulay Michael Brain Aneurysm Sister Migraines Sister Relation Name Status Comments Brother none Father Chris Spangler Half-Brother 1 Half-Brother 2 Half-Sister 1 Half-Sister 2 Charlotte Alive Half-Sister 3 Susan Alive Mother Zulay Michael Sister Social History Tobacco Use Types Packs/Day Years Used Date Smoking Tobacco: Former Cigarettes 1 4 0 11/27/1962 - 11/27/1966 Passive Smoke Exposure: Past Smokeless Tobacco: Never Tobacco Cessation:Counseling Given: No Comments:Didn't like it Alcohol Use Standard Drinks/Week Comments No 0 (1 standard drink = 0.6 oz pur e alcohol) Sex and Gender Information Value Date Recorded Sex Assigned at Not on file Legal Sex Male 5:36 AM [employer]AT [employer] Gender Identity Not on file Sexual Orientation Not on file Last Filed Vital Signs Vital Sign Reading [...] Mass Index 25.15 02/14/2025 10:28 AM CDT Plan of Treatment Upcoming Encounters Date Type Department Care Team (Latest Contact Info) Description 02/23/2025 11:20 AM CDT Office Visit [facility] [address] [facility] [address] [place] [address] Krysta Restrepo NP [address] [facility] [address] [place] [phone] 02/23/2025 2:00 PM CDT Office Visit [facility] [place] [address] [place] [address] Cynthia Munguia PA-C [address] [place] [address] 02/28/2025 1:00 PM CDT Appointment [facility] CT Scan [address] [place] [address] Ama Coppola MD [address] [place] [address] 03/09/2025 10:00 AM CDT Hospital Encounter [facility] Endoscopy [address] [place] [address] Ama Coppola MD [address] [place] [address] Lung nodule 03/09/2025 11:00 AM CDT - 03/09/2025 12:34 PM CDT Surgery [facility] [address] [place] [address] Ama Coppola MD [address] [place] [address] BRONCHOSCOPY COMPUTER-ASSISTED/R OBOTIC 04/05/2025 10:00 AM CDT Office Visit [facility] [address] [place] [address] Leela Lundberg, [facility] [address] [place] [phone] 07/05/2025 10:20 AM [employer] Office Visit [facility] [address] [place] [facility] [address] Leela Lundberg, [facility] [address] [place] [address] Scheduled Procedures Name Priority Associated Diagnoses Date/Ti me BRONCHOSCOPY COMPUTER-ASSISTED/ROBOTIC Lung nodule 03/09/2025 11:00 AM CDT BRONCHOSCOPY WITH EBUS INCLUDING FLUOROSCOPIC GUIDANCE Lung nodule 03/09/2025 11:00 AM CDT Health Maintenance Due Date Last Done Comments DTAP/TDAP/TD VACCINES (1 - Tdap) 1964 RSV VACCINE (60+ or ) (1 - 1-dose 75+ series) 2020 ZOSTER VACCINE (2 of 2) 08/05/2023 06/10/2023 COVID-19 Vaccine (2023-2 5 season) 2024 04/23/2024, 05/13/2023, 05/14/2022, Additional history exists INFLUENZA VACCINE (#1) 2025 , 08/13/2021, 05/19/2015, Additional history exists COLORECTAL SCREENING Discontinued 05/23/2020, 08/04/19 00 Colorectal Cancer Screening Discontinued PNEUMOCOCCAL VACCINE 50+ YEARS Completed 06/10/2023 , 05/05/2015 [place] Preventative Visit/Annual Wellness Visit Completed 01/19/2025 FIT-DNA Q 3 years Discontinued FIT/FOBT Q 1 year Discontinued Flex Sig/CT Colonography Q 5 years Discontinued Medical Devices Implanted Type Area Knocker Out Device Identifier Shelf Expiration Date Model / Serial / Lot Closure Perclose Prostyle Sut Mediate 40031-03 - [id number] Implanted:Qty : 1 on 12/23/2023 by Rob Georges MD at [facility] Closure Device Right: Groin LOMELI- VASC DEVICE [id number] 10/01/202516073-86 / / [id number] Closure Perclose Prostyle Sut Mediate 34383-16 - [id number] Implanted:Qty : 1 on 12/23/2023 by Rob Georges MD at [facility] Closure Device Right: Groin LOMELI- VASC DEVICE [id number] 10/01/202584246-37 / / [id number] Closure Perclose Prostyle Sut Mediate 01914-16 - [id number] Implanted:Qty : 1 on 12/23/2023 by Rob Georges MD at [facility] Closure Device Left: Groin LOMELI- VASC DEVICE [id number] 10/01/202565950-37 / / [id number] Prox Body Reclaim 48k23bp - [id number] Implanted:Qty : 1 on 12/11/2021 by Rob Hook MD at [facility] Hip Right: Hip [employer] [id number] 01/31/20315 / / [id number] Head Fem Art/Joshua Cer Sz28 136-- - [id number] Implanted:Qty : 1 on 12/11/2021 by Rob Hook MD at [facility] Hip Right: Hip [employer] [id number] 08/03/2026 / / [id number] Comp Tib Attune Fb Cmnt Sz7 1506-70-007 - [id number] Implanted:Qty : 1 on 07/02/2022 by Rob Hook MD at [facility] Knee Right: Knee [employer] [id number] 06/03/2032 [id number] / / [id number] Insert Attune Fb Cr Sz6 14mm 1516-20-614 - [id number] Implanted:Qty : 1 on 07/02/2022 by Rob Hook MD at [facility] Knee Right: Knee [employer] [id number] 08/03/2026 [id number] / / [id number] Mesh Bard 4puj5it [id number] - [id number] Implanted:Qty : 1 on 11/16/2024 by Mateus Bautista DO at [facility] Mesh Right: Abdomen BARD DAVOL [id number] 02/28/2029 [id number] / / [id number] Plate Aviator 3lvl 51mm [id number] - [id number] Implanted:Qty : 1 on 07/07/2015 by Julio César Negro MD Plate N/A: Spine Cervical Anterior NERI- SPINE [id number] / / [id number] Putty Bio Dbm 5ml 40898 - [id number] Implanted:Qty : 1 on 07/07/2015 by Julio César Negro MD Putty N/A: Spine Cervical Anterior NERI- SPINE 05/16/2016 13006 / [id number] / [id number] Screw Avtr Va Sd 4.0x16mm [id number] - [id number] Implanted:Qty : 2 on 07/07/2015 by Julio César Negro MD Screw N/A: Spine Cervical Anterior NERI- SPINE [id number] / / [id number] 4.04u96ag [id number] - [id number] Implanted:Qty : 6 on 07/07/2015 by Julio César Negro MD Screw N/A: Spine Cervical Anterior NERI- SPINE [id number] / / [id number] Spacer Avs As 14x16 6mm 4d [id number] - [id number] Implanted:Qty : 1 on 07/07/2015 by Julio César Negro MD Spacer N/A: Spine Cervical Anterior NERI- SPINE [id number] / / [id number] Spacer Avs As 14x16 7mm 4d [id number] - [id number] Implanted:Qty : 2 on 07/07/2015 by Julio César Negro MD Spacer N/A: Spine Cervical Anterior NERI- SPINE [id number] / / [id number] Stent Lupillo Milton Shan 3.30f13tn Rx [id number] - [id number] Implanted:Qty : 1 on 12/23/2023 by Rob Georges MD at [facility] Stent N/A: Coronary [employer] [id number] 09/25/2026 [id number] UX / / [id number] Stent Lupillo Milton Shan 3.0x18mm Rx [id number] - [id number] Implanted:Qty : 1 on 12/23/2023 by Rob Georges MD at [facility] Stent N/A: Coronary [employer] [id number] 09/17/2026 [id number] UX / / [id number] Bi Mentum Pressfit 53mm Implanted:Qty : 1 on 12/11/2021 by Rob Hook MD at [facility] Right: Hip 08/03/2024 [id number] / / [id number] Stem Fem Reclaim Ti [id number] Implanted:Qty : 1 on 12/11/2021 by Rob Hook MD at [facility] Right: Hip 09/03/2031 [id number] / / [id number] Bi Mentum Pfr Pe [id number] Implanted:Qty : 1 on 12/11/2021 by Rob Hook MD at [facility] Right: Hip 05/03/2024 [id number] / / [id number] Cement Implanted:Qty : 1 on 07/02/2022 by Rob Hook MD at [facility] Right: Knee 10/01/2024 [id number] / / [id number] Comp Fem Attune Rt Sz6 Implanted:Qty : 1 on 07/02/2022 by Rob Hook MD at [facility] Right: Knee [id number] 01/02/2032 [id number] / / [id number] Explanted Type Area Knocker Out Device Identifier Shelf Expiration Date Model / Serial / Lot Plate Aviator 3lvl 48mm [id number] - [id number] Implanted:Julio César Ramirez MD (Quantity not on file) Explanted:Qty: 1 on 07/07/2015 by Julio César Negro MD Plate N/A: Spine Cervical Anterior NERI- SPINE [id number] / / [id number] Screw Avtr Va Sd 4.0x16mm [id number] - [id number] Implanted:Julio César Ramirez MD (Quantity not on file) Explanted:Qty: 2 on 07/07/2015 by Julio César Negro MD Screw N/A: Spine Cervical Anterior NERI- SPINE [id number] / / [id number] Retained Femoral Hardware Explanted:Qty: 1 on 12/11/2021 by Rob Hook MD at [facility] Right: Femur Description:SZ 13 femoral na il Lag screw Procedures Procedure Name Priority Date/Time Associated Diagnosis Comments POC COVID-19 ANTIGEN Routine 02/14/2025 10:45 AM CDT COVID-19 virus detected CBC WITH DIFFERENTIAL Routine 01/19/2025 12:43 PM CDT HTN (hypertension), benign COMPREHENSIVE METABOLIC PANEL Routine 01/19/2025 12:43 PM CDT HTN (hypertension), benign TSH Routine 01/19/2025 12:43 PM CDT HTN (hypertension), benign LIPID PANEL Routine 01/19/2025 12:43 PM CDT HTN (hypertension), benign VITAMIN B12 AND FOLATE Routine 12:00 AM CDT Chronic anemia IRON, TIBC, AND PERCENT SATURATION Routine 01/19/2025 12:00 AM CDT Chronic anemia from Last 3 Months Results * (ABNORMAL) POC COVID-19 ANTIGEN (02/14/2025 10:45 AM CDT) COVID-19 ANTIGEN POC Positive(A) Presumptively Negative [facility] INTERNAL KIT QC POC Pass Pass [facility] KIT LOT NUMBER POC [id number] [facility] KIT EXP DATE POC 07/04/[address] [facility] READ METHOD POC Instrument [facility] Upper Respiratory 02/14/2025 10:45 AM CDT Bobmckenzieanalilia Lundberg BELLY PACKER POINT OF CARE TESTING Melissa l Result [facility] CLIA# [id number] [address] [place] [address] * (ABNORMAL) CBC WITH DIFFERENTIAL (01/19/2025 12:43 PM CDT) WBC 8.1 3.8 - 10.8 Thousand/u L [facility] RBC 3.11(L) 4.20 - 5.80 Million/uL [facility] HEMOGLOBIN 9.5(L) 13.2 - 17.1 g/dL [facility] HEMATOCRIT 30.8(L) 38.5 - 50.0 % [facility] MCV 99.0 80.0 - 100.0 fL [facility] MCH 30.5 27.0 - 33.0 pg [facility] MCHC 30.8(L) 32.0 - 36.0 g/dL [facility] Comment: For adults, a slight decrease in the calculated MCHC value (in the range of 30 to 32 g/dL) is most likely not clinically significant; however, it should be interpreted with caution in correlation with other red cell parameters and the patient's clinical condition. RDW 13.2 11.0 - 15.0 % [facility] PLATELETS 318 140 - 400 Thousand/u L [facility] MPV 9.4 7.5 - 12.5 fL [facility] NEUTROPHIL ABSOLUTE 4,682 1,500 - 7,800 cells/uL [facility] LYMPHOCYTE ABSOLUTE 2,333 850 - 3,900 cells/uL [facility] MONOCYTE ABSOLUTE 737 200 - 950 cells/uL [facility] EOSINOPHIL ABSOLUTE 300 15 - 500 cells/uL [facility] BASOPHILS ABSOLUTE 49 0 - 200 cells/uL [facility] NEUTROPHIL 57.8 % [facility] LYMPHOCYTES 28.8 % [facility] MONOCYTE 9.1 % [facility] EOSINOPHILS 3.7 % [facility] BASOPHILS 0.6 % [facility] Comment: Test Performed at: [facility] [address] [place] [address] [facility] Myke BARRAZA Blood 01/19/2025 12:4 3 PM CDT 01/20/2025 4:06 AM CDT Leela Lundberg [facility] HEMATOLOGY ORDERABLES Melissa l Result Performing Organization Address City/[facility]/ZIP Co de Phone Number [facility] [phone] [facility] [address] [place] [address] * TSH (01/19/2025 12:43 PM CDT) Pathologist [facility] TSH 1.21 0.40 - 4.50 mIU/L [facility] Comment: Test Performed at: [facility] [address] [facility] Glendy Stringer MD Blood 01/19/2025 12:4 3 PM CDT 01/20/2025 4:06 AM CDT Leela Lundberg [facility] CHEMISTRY ORDERABLES Final Result [facility] [phone] [facility] [address] * (ABNORMAL) LIPID PANEL (01/19/2025 12:43 PM CDT) CHOLESTEROL 89 <200 mg/dL [facility] HDL 38(L) > OR = 40 mg/dL [facility] TRIGLYCERIDE 36 <150 mg/dL [facility] LDL CALCULATED 41 mg/dL (calc) [facility] Comment: Reference range: <100 Desirable range <100 mg/dL for primary prevention; <70 mg/dL for patients with CHD or diabetic patients with > or = 2 CHD risk factors. LDL-C is now calculated using the Adela calculation, which is a validated novel method providing better accuracy than the Friedewald equation in the estimation of LDL-C. Juliano SS et al. ANAM. 2013;310(19): 9607-7964 (http://education.Lighting by LED/faq/WSI656) CHOL/HDL RATIO 2.3 <5.0 (calc) [facility] NON-HDL CHOLESTEROL 51 <130 mg/dL (calc) [facility] Comment: For patients with diabetes plus 1 major ASCVD risk factor, treating to a non-HDL-C goal of <100 mg/dL (LDL-C of <70 mg/dL) is considered a therapeutic option. Test Performed at: [facility] [address] [place] [address] Marybeth Stringer MD Blood 01/19/2025 12:4 3 PM CDT 01/20/2025 4:06 AM CDT Bobmckenzieanalilia Lundberg BELLY PACKER CHEMISTRY ORDERABLES Final Result [facility] [phone] [facility] [address] [place] [address] * (ABNORMAL) COMPREHENSIVE METABOLIC PANEL (01/19/2025 12:43 PM CDT) GLUCOSE 77 65 - 99 mg/dL [facility] Comment: Fasting reference interval BUN 32(H) 7 - 25 mg/dL [facility] CREATININE 1.51(H) 0.70 - 1.28 mg/dL [facility] GFR 47(L) > OR = 60 mL/min/1.7 3m2 [facility] BUN/CREAT RATIO 21 6 - 22 (calc) [facility] SODIUM 138 135 - 146 mmol/L [facility] POTASSIUM 4.8 3.5 - 5.3 mmol/L [facility] CHLORIDE 105 98 - 110 mmol/L [facility] CO2 27 20 - 32 mmol/L [facility] CALCIUM 9.0 8.6 - 10.3 mg/dL [facility] TOTAL PROTEIN 5.7(L) 6.1 - 8.1 g/dL [facility] ALBUMIN 3.7 3.6 - 5.1 g/dL [facility] GLOBULIN 2.0 1.9 - 3.7 g/dL (calc) [facility] ALBUMIN/GLOBULIN RATIO 1.9 1.0 - 2.5 (calc) [facility] BILIRUBIN TOTAL 0.4 0.2 - 1.2 mg/dL [facility] ALKALINE PHOSPHATASE 109 35 - 144 U/L [facility] AST 15 10 - 35 U/L [facility] ALT 10 9 - 46 U/L [facility] Comment: Test Performed at: [facility] [address] [place] [address] Marybeth Stringer MD Blood 01/19/2025 12:4 3 PM CDT 01/20/2025 4:06 AM CDT Leela Lundberg BELLY PACKER CHEMISTRY ORDERABLES Final Result [facility] [phone] [facility] [address] [facility] [place] [address] * VITAMIN B12 AND FOLATE (01/19/2025 12:00 AM CDT) VITAMIN B12 396 200 - 1100 pg/mL [facility] Comment: Please Note: Although the reference range for vitamin B12 is 200-1100 pg/mL, it has been reported that between 5 and 10% of patients with values between 200 and 400 pg/mL may experience neuropsychiatric and hematologic abnormalities due to occult B12 deficiency; less than 1% of patients with values above 400 pg/mL will have symptoms. FOLATE, SERUM 12.3 ng/mL [facility] Comment: Reference Range Low: <3.4 Borderline: 3.4-5.4 Normal: >5.4 Test Performed at: [facility] [address] Marybeth Stringer MD Blood 01/19/2025 01/20/2025 3:4 [address] Leela Lundberg [facility] CHEMISTRY ORDERABLES Final Result Performing Organization Address [facility] Co de Phone Number [facility] [phone] [facility] [address] * (ABNORMAL) IRON, TIBC, AND PERCENT SATURATION (01/19/2025 12:00 AM CDT) [facility] IRON 43(L) 50 - 180 mcg/dL [facility] TIBC 292 250 - 425 mcg/dL (calc) [facility] IRON % SATURATION 15(L) 20 - 48 % (calc) [facility] Comment: Test Performed at: [facility] [address] Marybeth Stringer MD Blood 01/19/2025 01/20/2025 3:4 [address] Leela Lund[address] [facility] CHEMISTRY ORDERABLES Final Result [facility] [phone] [facility] [address] from Last 3 Months Additional Health Concerns Infection Onset Date Last Indicated COVID-19 02/14/2025 02/14/2025 Insurance [facility] MEDICARE HMO RX [employer] RX Member Subscriber Plan / Payer (Ef fective 2021-Present) Name:Seb Spangler Relation to Subscriber:Self Name:Seb Spangler Payer ID:Not on file Group ID:[id number] Type:RX Medicare Part D Address: [place] Advance Directives For more information, please contact: [phone] Documents on File Type Date Recorded Patient Melter Caster Expl anation Advance Directive Living Will 07/07/2015 5:41 AM Advance Directive Living Will * Full Code (Latest Code Status on File) Date Activated Date Inactivated Comments 12/23/2023 9:52 AM 12/23/2023 5:47 PM * Full Code Date Activated Date Inactivated Comments 12/23/2023 6:09 AM 12/23/2023 9:52 AM * Full Code Date Activated Date Inactivated Comments 12/11/2021 2:42 PM 12/13/2021 3:08 PM Care Teams Director Of Outpatient Services Relationship Specialty Start Date End Date Katya Oliva DO [address] [facility] [address] PCP - General Family Practice 10/26/24
--- OUTSIDE RECORDS SUMMARY | 2025-02-18 10:42 | XMS_ITS | Clinical Summary ---
Author Organization [facility] Address [address] [place] [address] Care Team Providers Care Perinatal Breastfeeding Assistant Name Role Phone Cecile Johnston MD Primary Care Provider [phone] Allergies Active Allergy Reactions Criticality Noted Date Comments Codeine Nausea and Vomiting Low 02/07/2012 Medications acetaminophen (TYLENOL EXTRA STRENGTH) 500 mg tablet Take 1,000 mg by mouth every 6 hours as needed for Pain, Mild / Temperature or Pain, Moderate. Active metoprolol tartrate (LOPRESSOR) 100 mg tablet Take 1 Tablet (100 mg) by mouth 2 times daily. 60 Tablet 0 5 Active hydrochlorothia zide 25 mg tablet Take 25 mg by mouth daily. Active ranitidine (ZANTAC) 150 mg tablet Take 150 mg by mouth 2 times daily. Active magnesium citrate solution Take 296 mL by mouth one time only. Active RED YEAST RICE ORAL Take by mouth. Activ e Active Problems Problem Noted Date Diagnosed Date Status post cervical spinal fusion 11/24/2015 Precordial pain 07/08/2015 Cervical myelopathy 03/23/2015 GERD (gastroesophageal reflux disease) 2 Dysphagia, pharyngoesophageal phase 02/07/2012 Hoarseness 02/07/2012 Immunizations Immunization Administration Dates Next Due Influenza Seasonal Unspecified Formulation IM Family History Medical History Relation Name Comments Unknown Father Unknown Mother Relation Name Status Comments Father Mother Social History Tobacco Use Types Packs/Day Years Used Date Smoking Tobacco: Former Cigarettes Q uit: 11/27/1966 Smokeless Tobacco: Never Tobacco Cessation:Counseling Given: No Alcohol Use Standard Drinks/Week Comments No 0 (1 standard drink = 0.6 oz pur e alcohol) Sex and Gender Information Value Date Recorded Sex Assigned at Not on file 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 Gender Identity Not on file Sexual Orientation Not on file Last Filed Vital Signs Vital Sign Reading Time Taken Comments Blood Pressure 130/72 05/25/2020 1:47 PM CDT Pulse 72 02/14/2020 11:52 AM CDT Temperature 36.6 C (97.9 F) 11/28/2015 11:04 AM CDT Respiratory Rate 16 07/27/2015 10:00 AM EMPLOYMENT SPECIALIST Oxygen Saturation 92% 11/28/2015 11:04 AM CDT Inhaled Oxygen Concentration - - Weight 78.9 kg (174 lb) 05/25/2020 1:47 PM CDT Height 170.2 cm (5' 7 ) 05/25/2020 1:47 PM CDT Body Mass Index 27.25 05/25/2020 1:47 PM CDT Plan of Treatment Health Maintenance Due Date Last Done Comments DTAP/TDAP/TD VACCINES (1 - Tdap) 1964 PNEUMOCOCCAL VACCINE 50+ YEARS (1 of 1 - PCV) 06/28/19 95 ZOSTER VACCINE (1 of 2) 1995 RSV VACCINE (60+ or ) (1 - 1-dose 75+ series) 2020 INFLUENZA VACCINE (#1) 2025 05/19/2015 COLORECTAL SCREENING Discontinued 05/23/2020 Colorectal Cancer Screening Discontinued FIT-DNA Q 3 years Discontinued FIT/FOBT Q 1 year Discontinued Flex Sig/CT Colonography Q 5 years Discontinued Medical Devices Implanted Type Area Software Installer Device Identifier Shelf Expiration Date Model / Serial / Lot Plate Aviator 3lvl 51mm [id number] - [id number] Implanted:Qty: 1 on 07/07/2015 by Julio César Negro MD at [facility] Plate N/A: Spine Cervical Anterior NERI- SPINE [id number] / / [id number] Putty Bio Dbm 5ml 91985 - [id number] Implanted:Qty: 1 on 07/07/2015 by Julio César Negro MD at [facility] Putty N/A: Spine Cervical Anterior NERI- SPINE 05/16/2016 [id number] / [id number] / [id number] Screw [address] 4.93d76ts [id number] - [id number] Implanted:Qty: 6 on 07/07/2015 by Julio César Negro MD at [facility] Screw N/A: Spine Cervical Anterior NERI- SPINE [id number] / / [id number] Screw Avtr Va Sd 4.0x16mm [id number] - [id number] Implanted:Qty: 2 on 07/07/2015 by Julio César Negro MD at [facility] Screw N/A: Spine Cervical Anterior NERI- SPINE [id number] / / [id number] Spacer Avs As 14x16 7mm 4d [id number] - [id number] Implanted:Qty: 2 on 07/07/2015 by Julio César Negro MD at [facility] Spacer N/A: Spine Cervical Anterior NERI- SPINE [id number] / / [id number] Spacer Avs As 14x16 6mm 4d [id number] - [id number] Implanted:Qty: 1 on 07/07/2015 by Julio César Negro MD at [facility] Spacer N/A: Spine Cervical Anterior NERI- SPINE [id number] / / [id number] Explanted Type Area Software Installer Device Identifier Shelf Expiration Date Model / Serial / Lot Plate Aviator 3lvl 48mm [id number] - [id number] Implanted:Julio César Ramirez MD (Quantity not on file) Explanted:Qty: 1 on 07/07/2015 by Julio César Negro MD at [facility] Plate N/A: Spine Cervical Anterior NERI- SPINE [id number] / / [id number] Screw Avtr Va Sd 4.0x16mm [id number] - [id number] Implanted:Julio César Ramirez MD (Quantity not on file) Explanted:Qty: 2 on 07/07/2015 by Julio César Negro MD at [facility] Screw N/A: Spine Cervical Anterior NERI- SPINE [id number] / / [id number] Insurance MEDICARE PART A AND B [facility] Advance Directives For more information, please contact: [phone] Documents on File Type Date Recorded Patient Supervisor Dry Paste Expl anation Advance Directive Living Will 07/07/2015 5:41 AM Advance Directive Living Will * Full Code (Latest Code Status on File) Date Activated Date Inactivated Comments 07/07/2015 12:32 PM 07/13/2015 5:08 PM * Full Code Date Activated Date Inactivated Comments 07/07/2015 6:47 AM 07/07/2015 12:32 PM Care Teams Perinatal Breastfeeding Assistant Relationship Specialty Start Date End Date Cecile Johnston MD PCP - General Family Practice 02/07/12
--- OUTSIDE RECORDS SUMMARY | 2025-02-18 10:42 | XMS_ITS | Encounter Summary ---
Author Organization [facility] Address [address] [place] [address] Care Team Providers Care Search Engine Optimization Specialist Name Role Phone Cecile Johnston MD Primary Care Provider [phone] Encounter Details Date Type Department Care Team (Latest Contact Info) Description 08/11/2000 Outpatient Historical [facility] Del Ma Jr., MD [address] [place] [address] Bronchitis, not specified as acute or chronic (Primary Dx) Social History Tobacco Use Types Packs/Day Years Used Date Smoking Tobacco: Never Assessed Sex and Gender Information Value Date Recorded Sex Assigned at Not on file 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
[2025-02-18 11:23] LABS: Hematocrit 32.0 % (37-53); Hemoglobin 10.30 g/dL (11.27-16.99); Mean Corpuscular HGB Conc 32.2 g/dL (30-55); Mean Corpuscular Hemoglobin 30.7 pg (27-33); Mean Corpuscular Volume 95.2 fl (82-101); Nucleated Red Blood Cells % 0 %; Platelet Count 294 10^3/cmm (157-399); Red Blood Count 3.36 10^6/uL (3.85-5.65); White Blood Count 15.51 10^3/uL (3.29-11.43)
[2025-02-18 11:40] LABS: Troponin(5th) Baseline 37 ng/L (0-15)
[2025-02-18 11:46] LABS: Alanine Aminotransferase 11 U/L (0-41); Albumin Level 3.7 g/dL (3.5-5.2); Alkaline Phosphatase 104 U/L (40-130); Anion Gap 15.6 (5-19); Aspartate Amino Transferase 14 U/L (0-40); Blood Urea Nitrogen 28 mg/dL (8-23); Calcium 8.9 mg/dL (8.5-10.5); Carbon Dioxide 25 mmol/L (22-29); Chloride 102 mmol/L (98-107); Globulin 2.1 g/dL (1.3-4.6); Glucose 111 mg/dL (65-115); Osmolality Calculated 292 mOsm/kg (285-295); Potassium 4.6 mmol/L (3.5-5.1); Sodium 138 mmol/L (136-145); Total Protein 5.8 g/dL (6.6-8.7)
[2025-02-18 12:08] LABS: Procalcitonin 0.28 ng/mL (0-0.5)
--- NOTE | 2025-02-18 13:04 | ECG_ITS ---
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
[2025-02-18 13:56] LABS: Troponin 5 2HR 31.24 ng/L (0-15)
[2025-02-18 14:03] LABS: Troponin 5 2HR Delta -5.76 ABS# (0-10)
== END 2025-02-18 14:30 | disposition home or self-care (01) ==
PROVIDERS: Emergency Provider Physician Assistant; PCP Family Medicine
DX: U07.1 COVID-19 (principal); R07.9 Chest pain, unspecified; Z79.82 Long term (current) use of aspirin; Z79.02 Long term (current) use of antithrombotics/antiplatelets
CPT/HCPCS: 71045; 80053; 84145; 84484; 85025; 93005; 99285; J7030

== ENCOUNTER 2025-04-12 08:26 | Oncology outpatient (recurring) (ONCR) | payer BC, SELFPAY ==
[2025-04-12 09:15] LABS: Hematocrit 33.0 % (37-53); Hemoglobin 10.50 g/dL (11.27-16.99); Mean Corpuscular HGB Conc 31.8 g/dL (30-55); Mean Corpuscular Hemoglobin 30.6 pg (27-33); Mean Corpuscular Volume 96.2 fl (82-101); Nucleated Red Blood Cells % 0 %; Platelet Count 245 10^3/cmm (157-399); Red Blood Count 3.43 10^6/uL (3.85-5.65); White Blood Count 6.91 10^3/uL (3.29-11.43)
== END 2025-05-03 23:59 | disposition home or self-care (01) ==
PROVIDERS: PCP Family Medicine; Visit Provider Internal Medicine Medical Oncology
DX: R91.1 Solitary pulmonary nodule (principal); D50.0 Iron deficiency anemia secondary to blood loss (chronic); R03.0 Elevated blood-pressure reading, without diagnosis of hypertension; Z79.899 Other long term (current) drug therapy
CPT/HCPCS: 36415; 85025; 99214

== ENCOUNTER 2025-06-23 14:35 | Emergency (ER) | payer MEDICARE, OTHER, SELFPAY ==
[2025-06-23 14:50] VITALS: BP 178/79; PULSE 72; RESP 18; TEMP 36.8; O2SAT 98
--- NOTE | 2025-06-23 14:59 | XR_ITS ---
WS: [id number] XR pelvis 1-2V* [id number] REASON FOR EXAM: fall FINDINGS: Total right hip arthroplasty. Components of the arthroplasty are intact and appear in proper position and alignment. No acute fracture associated with the prosthesis is noted. The remainder of the bony pelvis is intact without acute fracture. XR/XR pelvis 1-2V* [id number] IMPRESSION: No acute abnormality.
--- NOTE | 2025-06-23 14:59 | CTR_ITS ---
PROCEDURE INFORMATION: Exam: CT Cervical Spine Without Contrast Exam date and time: 06/23/2025 3:04 PM Age: 79 years old Clinical indication: Injury or trauma; Fall; Blunt trauma TECHNIQUE: Imaging protocol: Computed tomography of the cervical spine without contrast. Radiation optimization: All CT scans at this facility use at least one of these dose optimization techniques: automated exposure control; mA and/or kV adjustment per patient size (includes targeted exams where dose is matched to clinical indication); or iterative reconstruction. COMPARISON: PT PET skull to thigh INIT [id number] 09/03/2024 1:33 PM RADIATION DOSE METRICS: Total DLP (mGy-cm): 1218.9 FINDINGS: Bones: ACDF hardware from C4 to C7. Disc spacer at C4-C5. Fusion of the C5-C7 vertebral bodies. Straightening of the cervical lordosis. Mild anterolisthesis C2 on C3 , C3 on C4, and C7 on T1. Posterior elements are aligned. Ankylosis of the left C3-C4 facets. Craniocervical junction is maintained. Atlantodental interval is symmetric. Multilevel degenerative changes resulting in varying degrees of central and bilateral foraminal stenosis. Evaluation of spinal canal contents is limited with CT technique. Lungs: Lung apices are normal. Thyroid: 0.9 cm right thyroid nodule. Soft tissues: Unremarkable. CT/CT cervical spin wo con* [id number] IMPRESSION: 1. Status post spinal fusion from C4-C7. 2. Mild anterolistheses as above, likely chronic. No acute fracture is visualized. COMMENTS: Consistent with the [place] [employer]'s Incidental Findings Committee white paper (J Am Deon Radiol 2015): In patients aged 35 years and older with an incidental thyroid nodule equal to or greater than 1.[address], MRI or extrathyroidal US, further evaluation with dedicated thyroid US is recommended for patients with normal life expectancy and without comorbidities. For smaller nodules without suspicious features, no further evaluation or follow up is recommended.
--- NOTE | 2025-06-23 14:59 | XR_ITS ---
WS: [id number] XR knee RT 3V* [id number] REASON FOR EXAM: fall FINDINGS: Partial right knee arthroplasty. Components of the arthroplasty are intact and in proper position and alignment. The patella is intact. No fracture associated with the prostheses of the knee replacement. XR/XR knee RT 3V* [id number] IMPRESSION: No acute abnormality.
--- NOTE | 2025-06-23 14:59 | CTR_ITS ---
PROCEDURE INFORMATION: Exam: CT Head Without Contrast Exam date and time: 06/23/2025 3:04 PM Age: 79 years old Clinical indication: Injury or trauma; Fall; Blunt trauma (contusions or hematomas) TECHNIQUE: Imaging protocol: Computed tomography of the head without contrast. Radiation optimization: All CT scans at this facility use at least one of these dose optimization techniques: automated exposure control; mA and/or kV adjustment per patient size (includes targeted exams where dose is matched to clinical indication); or iterative reconstruction. COMPARISON: CT head wo con* [id number] 09/30/2021 2:36 PM RADIATION DOSE METRICS: Total DLP (mGy-cm): 1218.9 FINDINGS: Brain: Small subarachnoid hemorrhage along the right inferior frontal convexity. Subarachnoid hemorrhage versus small cortical contusion of the right gyrus rectus (series 6, image 65). No significant mass effect or midline shift. Areas of periventricular and subcortical hypoattenuation likely reflecting chronic microvascular ischemic changes given the patient's age. Cerebral ventricles: Generalized age-related cerebral volume loss. No hydrocephalus. Paranasal sinuses: Mild bilateral maxillary and moderate bilateral ethmoid sinus mucosal thickening with several opacified ethmoid air cells. Mastoid air cells: Visualized mastoid air cells are well aerated. Bones: Unremarkable. No acute fracture. Soft tissues: Large right frontal scalp/periorbital hematoma. CT/CT head wo con* [id number] IMPRESSION: 1. Small subarachnoid hemorrhage along the right inferior frontal convexity. Possible cortical contusion of the right gyrus rectus. No significant mass effect or midline shift. 2. No acute calvarial fracture. COMMENTS: THIS REPORT CONTAINS FINDINGS THAT MAY BE CRITICAL TO PATIENT CARE. The exam findings were verbally communicated by me to JUSTIN VARGAS via telephone conference at 3:32 PM WATER POLLUTION SCIENTIST on 06/23/2025. The findings were acknowledged and understood.
--- NOTE | 2025-06-23 15:20 | W.ED.FALL ---
HPI - Fall General: Chief Complaint: Fall Stated Complaint: fall - LOC, right leg pain Time Seen by Provider: 06/23/25 14:49 Source: patient and EMS Mode of arrival: EMS Limitations: no limitations History of Present Illness: 79-year-old male states that he tripped on a chair and fell just prior to arrival. States he did hit his head on the ground does have a hematoma along with a small laceration above his right eyebrow. Patient denies loss conscious has headache along with some slight neck pain he is in a c-collar. States he has right knee pain he states he has some mild right hip pain but able to fully move his leg. He denies any chest or abdominal pain Associated symptoms-after fall: Reports headache(s) Related Data Home Medications ?Medication ?Instructions ?Recorded ?Confirmed cetirizine 10 mg tablet (Zyrtec) 10 mg PO DAILY PRN Allergy Symptoms 09/30/21 06/23/25 aspirin 81 mg tablet,delayed 81 mg PO DAILY 05/19/24 06/23/25 release amlodipine 5 mg tablet 5 mg PO DAILY 08/26/24 06/23/25 ferrous sulfate 325 mg (65 mg 325 mg PO DAILY 02/18/25 06/23/25 iron) tablet (FeroSul) Previous Rx's ?Medication ?Instructions ?Recorded pantoprazole 40 mg tablet,delayed 40 mg PO DAILY 90 days #90 tabs 05/10/21 release (Protonix) ASO to right #1 ea 10/16/21 metoprolol tartrate 50 mg tablet 50 mg PO BID #180 tabs 02/25/22 A Thurston Balance brace to the right #1 ea 12/03/22 atorvastatin 40 mg tablet 40 mg PO DAILY 30 days #30 tabs 03/04/24 clopidogrel 75 mg tablet 75 mg PO DAILY 30 days #30 tabs 03/04/24 Allergies Allergy/AdvReac Type Severity Reaction Status Date / Time codeine Allergy Mild nausea Verified 04/12/25 09:15 Review of Systems Musc: Reports: extremity pain Neuro: Reports: headache(s) PFSH ED PFSH: Medical History Coronary artery disease Ankle pain, chronic Leukocytosis Closed intertrochanteric fracture of right hip Closed intertrochanteric fracture Acute knee pain Acute hip pain Fall GERD (gastroesophageal reflux disease) KAREN (obstructive sleep apnea) Chronic bronchitis, obstructive Essential hypertension Surgical History Status post open reduction and internal fixation (ORIF) of fracture History of colonoscopy with polypectomy (05/23/20) S/P cataract surgery History of neck surgery History of esophagogastroduodenoscopy (EGD) (05/23/20) Gastritis is duodenitis Family History Mother CAD (coronary artery disease) Social History Smoking and tobacco/nicotine status: never used tobacco/nicotine Alcohol intake: never Substance/Drug Use: never Physical Exam Const: COMMON NORMALS: no acute distress, patient oriented x3 and healthy appearing HENMT: OTHER: Hematoma right forehead 2 cm linear laceration superficial to right eyebrow Eye: COMMON NORMALS: Equal, round and reactive pupils present and EOMs intact bilaterally PUPIL: Yes Equal, round and reactive pupils present Neck/C-Spine: OTHER: Patient in c-collar Chest: COMMONS NORMALS: normal inspection of the chest and normal palpation of entire chest wall Resp: COMMON NORMALS: normal respiratory effort, No retractions, No use of accessory muscles and clear to auscultation bilaterally AUSCULTATION: clear to auscultation bilaterally Cardio: COMMON NORMALS: regular rate, regular rhythm and No murmurs present (Cardio) RATE: regular rate RHYTHM: regular rhythm GI: COMMON NORMALS: Normal to inspection, nondistended, normoactive bowel sounds present, Soft to palpation, non-tender and no masses PALPATION: Yes Soft to palpation Extremity: COMMON NORMALS: full ROM NARRATIVE EXTREMITY EXAM: Tenderness noted to right knee no obvious deformity has full range of motion some minimal pain in right hip Neuro: COMMON NORMALS: patient oriented x3, moves all extremities and no focal motor deficits Psych: COMMON NORMALS: mental status grossly normal, Normal thought process present and cooperative THOUGHT PROCESS: Normal thought process present Skin: COMMON NORMALS: no rashes or lesions noted and no wounds GENERAL SKIN EXAM: no rashes or lesions noted Procedures Laceration Laceration 1: Site: face Side (If applicable): right Size (cm): 2 Description: linear Depth: simple, single layer Pre-repair: wound explored and irrigated extensively Skin layer closed with: other (dermabond) Course Vital Signs: Vital signs: Vital Signs Temperature 98.3 F 06/23/25 14:50 Pulse Rate 72 06/23/25 14:50 Respiratory Rate 18 06/23/25 14:50 Blood Pressure 178/79 06/23/25 14:50 Pulse Oximetry 98 06/23/25 14:50 Oxygen Delivery Me thod Room Air 06/23/25 14:50 MDM - Fall Medical Decision Making 71-year-old male presents here after a fall at home differential includes skull fracture, intracerebral hemorrhage, hip fracture. Head CT here does show subarachnoid hemorrhage. C-spine was negative did review interpret his x-ray of his hip and knee as showed no acute fractures. Patient did have a superficial laceration to his forehead that I repaired with Dermabond. I did speak to [facility] will transfer high-level care for neurosurgery and trauma patient is excepted by Dr. Alcantara in the ER critical care time 40 min The high probability of a clinically significant, sudden or life threatening deterioration of the patient's trauma system(s) required my full and direct attention, intervention and personal management. The critical care time is as shown. This time is in addition to time spent performing any reported procedures but includes the following: [x] Data and vital sign review and interpretation [x] Patient assessment, examination and intervention [x] Documentation [x] Medication orders and management Medical Records I reviewed the patient's medical records. Lab Data I reviewed the patient's lab results. 06/23/25 15:45 06/23/25 15:45 Radiology Impressions Cervical Spine CT 06/23/25 14:59 IMPRESSION: 1. Status post spinal fusion from C4-C7. 2. Mild anterolistheses as above, likely chronic. No acute fracture is visualized. COMMENTS: Consistent with the [place] [employer]'s Incidental Findings Committee white paper (J Am Deon Radiol 2015): In patients aged 35 years and older with an incidental thyroid nodule equal to or greater than 1.[address], MRI or extrathyroidal US, further evaluation with dedicated thyroid US is recommended for patients with normal life expectancy and without comorbidities. For smaller nodules without suspicious features, no further evaluation or follow up is recommended. Head CT 06/23/25 14:59 IMPRESSION: 1. Small subarachnoid hemorrhage along the right inferior frontal convexity. Possible cortical contusion of the right gyrus rectus. No significant mass effect or midline shift. 2. No acute calvarial fracture. COMMENTS: THIS REPORT CONTAINS FINDINGS THAT MAY BE CRITICAL TO PATIENT CARE. The exam findings were verbally communicated by me to JUSTNI VARGAS via telephone conference at 3:32 PM FAMILY SUPPORT SPECIALIST on 06/23/2025. The findings were acknowledged and understood. Laboratory Results WBC 10.50 10^3/uL (3.29-11.43) 06/23/25 15:45 RBC 3.60 10^6/uL (3.85-5.65) L 06/23/25 15:45 Hgb 11.40 g/dL (11.27-16.99) 06/23/25 15:45 Hct 34.5 % (37-53) L 06/23/25 15:45 MCV 95.8 fl (82-101) 06/23/25 15:45 MCH 31.7 pg (27-33) 06/23/25 15:45 MCHC 33.0 g/dL (30-55) 06/23/25 15:45 RDW 14.0 % (12.1-15.1) 06/23/25 15:45 Plt Count 289 10^3/cmm (157-399) 06/23/25 15:45 MPV 9.3 fL (7.4-10.4) 06/23/25 15:45 Neut % (Auto) 69.1 % 06/23/25 15:45 Lymph % (Auto) 20.6 % 06/23/25 15:45 [place] % (Auto) 6.3 % 06/23/25 15:45 Eos % (Auto) 2.4 % 06/23/25 15:45 Baso % (Auto) 0.6 % 06/23/25 15:45 Neut # (Auto) 7.26 10^3/uL (1.8-7.7) 06/23/25 15:45 Lymph # (Auto) 2.2 10^3/uL (0.8-4.8) 06/23/25 15:45 [place] # (Auto) 0.7 10^3/uL (0.2-0.9) 06/23/25 15:45 Eos # (Auto) 0.3 10^3/uL (0.0-0.8) 06/23/25 15:45 Baso # (Auto) 0.1 10^3/uL (0.0-0.1) 06/23/25 15:45 Nucleated RBC % (auto) 0 % 06/23/25 15:45 Nucleated RBCs # 0.0 /100WBC 06/23/25 15:45 All radiology interpretation(s) finalized by discharge Critical Care Time Critical Care Time: Critical Care Time: Yes Total Critical Care Time: 40 Attestation: The high probability of a clinically significant, sudden or life threatening deterioration of the patient's trauma system(s) required my full and direct attention, intervention and personal management. The critical care time is as shown. This time is in addition to time spent performing any reported procedures but includes the following: [x] Data and vital sign review and interpretation [x] Patient assessment, examination and intervention [x] Documentation [x] Medication orders and management Discharge Plan Discharge Patient Disposition: Xfer Short-Term Hosp Clinical Impression: Subarachnoid hemorrhage, Laceration of head, Fall Condition: Stable Referrals: Leela Lundberg FNP [Primary Care Provider] Print Language: Czech Coding Level of Care Code ED Sales Performance Analyst for Faye Nick
[2025-06-23 16:03] LABS: Hematocrit 34.5 % (37-53); Hemoglobin 11.40 g/dL (11.27-16.99); Mean Corpuscular HGB Conc 33.0 g/dL (30-55); Mean Corpuscular Hemoglobin 31.7 pg (27-33); Mean Corpuscular Volume 95.8 fl (82-101); Nucleated Red Blood Cells % 0 %; Platelet Count 289 10^3/cmm (157-399); Red Blood Count 3.60 10^6/uL (3.85-5.65); White Blood Count 10.50 10^3/uL (3.29-11.43)
[2025-06-23 16:18] LABS: INR 0.95 (0.8-1.2); Prothrombin Time 13.30 SECONDS (12.1-14.9)
[2025-06-23] MEDS: hyDRALAzine 20 mg/mL INJ 1 mL 10 MG IVP (16:18)
[2025-06-23] MEDS: ondansetron 2 mg/ML SDV 2 mL 4 MG IVP (16:18)
--- NOTE | 2025-06-23 16:20 | ECG_ITS ---
[facility] Date: 2025-06-23 Pat Name: Seb Spangler Department: Room: Gender: Male Product Marketing Executive: : 1945 Requested By: Ben Cabrera Order Number: [id number] Narinder MD: Walker Marino M.D. Measurements Intervals [place] Rate: 82 P: 52 CT: 133 QRS: 40 QRSD: 98 T: 29 QT: 350 QTc: 411 Interpretive Statements SINUS RHYTHM NONSPECIFIC ST & T-WAVE ABNORMALITY Compared to ECG 02/18/2025 13:04:05 T-wave abnormality now present Myocardial infarct finding no longer present Electronically Signed On 06-25-2025 14:25:09 STIFF NECK LOADER by Walker Marino M.D. [id number]
[2025-06-23 16:23] VITALS: BP 177/87; PULSE 83; RESP 16; O2SAT 95
[2025-06-23] MEDS: nicardipine 20 MG/200 ML PREMIX 50 MG IV (16:27)
[2025-06-23 16:28] LABS: Alanine Aminotransferase 11 U/L (0-41); Albumin Level 3.8 g/dL (3.5-5.2); Alkaline Phosphatase 105 U/L (40-130); Anion Gap 13.2 (5-19); Aspartate Amino Transferase 15 U/L (0-40); Blood Urea Nitrogen 33 mg/dL (8-23); Calcium 9.4 mg/dL (8.5-10.5); Carbon Dioxide 25 mmol/L (22-29); Chloride 107 mmol/L (98-107); Globulin 2.5 g/dL (1.3-4.6); Glucose 95 mg/dL (65-115); Osmolality Calculated 299 mOsm/kg (285-295); Potassium 4.2 mmol/L (3.5-5.1); Sodium 141 mmol/L (136-145); Total Protein 6.3 g/dL (6.6-8.7)
[2025-06-23] MEDS: labetalol 5 mg/mL SDV 20mL 10 MG IVP (16:31)
[2025-06-23 16:40] VITALS: BP 131/64; PULSE 90; O2SAT 95
--- OUTSIDE RECORDS SUMMARY | 2025-06-23 17:00 | XMS_ITS | Data Portability ---
Author Organization LAURA Lauro [facility] Carlitos Dominguez [facility] Address [address] [place] [address] LAURA HUYNH [address] Care Team Providers Care Catering And Events Manager Name Role Phone LINDSEY CONROY Primary Care Provider [phone] Assessment No assessment recorded. Plan of Treatment Reminders Order Date Submit Date Provider Last Modified By Organization Details Last Modified Time Details Appointments None recorded. Lab folate, serum 2023 [employer] [facility], [address] [place] [address], [address], [place], [address], 10:51:33 vitamin B12, serum 2023 024 [employer] [facility], [address] [place] [address], [address], [place], [address], 4 10:51:34 iron + TIBC + ferritin, serum 2023 024 [employer] [facility], [address] [place] [address], [address], [place], [address], 4 10:51:32 CMP, serum or plasma 2023 024 [facility], [address], [place], [address], 4 11:39:54 lipid panel, blood 2023 024 [facility], [address], [place], [address], 4 11:39:56 CBC 2023 024 [facility], [address], [place], [address], 4 11:44:35 PSA, serum or plasma 2023 024 [employer] [facility], [address] [facility] [address], [address], [place], [address], 4 10:51:35 Referral urologist referral 2023 024 [email or web address] Not available 4 09:16:14 hematologis t referral 2023 024 [employer] Shakir Renee MD, [address] [place], [address], 5 16:05:22 Procedures None recorded. Surgeries None recorded. Imaging CT, abdomen + pelvis, w/ contrast [address] (Scheduling Orders), [address] [place], [address], 5 13:12:42 US, duplex, arterial, lower extremity, complete [address] (Scheduling Orders), [address] [place], [address], 4 16:04:14 Medication Orders doxycycline hyclate 100 mg capsule 2024 025 [facility], [address], [place], [address], 5 14:09:23 tramadol 50 mg tablet 2024 025 [facility], [address], [place], [address], 11:12:09 Patient TargetsNo targets recorded. Patient Instructions Encounter Date Encounter Id Patient Instructions Last Modified By Organization Details Last Modified Time 07/08/2024 [id number] ([id number]) ankle brachial index* [email or web address] Not available 07/15/2024 16:04:37 08/15/2024 [id number] Increase fluids and follow up for worsening [email or web address] Not available 08/16/2024 03:55:06 Reason for Referral Urologist Referral for Prost ate specific antigen above reference range Referring Physician: Elizabeth Cloud, Family Medicine, Encounter Date: 07/08/2024 Referring Physician: Elizabeth devries, Family Medicine, Encounter Date: 07/08/2024 Results Created Date Observation Date Name Description Value Unit Range Abnormal Flag Note LastModifiedBy Organization Detail LastModifiedTime 07/09/20 24 07/09/2024 CMP (MALE ) glucose 98.0 mg/dL 60.0-9 9.0 Not Available [facility] [address] [facility] 1, [place], [address], 07/09/2024 11:39:54 07/09/20 24 07/09/2024 CMP (MALE ) BUN (blood urea nitrogen) 26.0 mg/dL 10.0-2 6.0 Not Available [facility] [address] [facility] 1, [place], [address], 07/09/2024 11:39:54 07/09/20 24 07/09/2024 CMP (MALE ) creatinine (serum) 1.2 mg/dL 0.4-1. 5 Not Available [facility] [address] [facility] 1, [place], [address], 07/09/2024 11:39:54 07/09/20 24 07/09/2024 CMP (MALE ) BUN/creatini ne ratio 21.67 ratio Not Available [facility] [address] [facility] 1, [place], [address], 07/09/2024 11:39:54 07/09/20 24 07/09/2024 CMP (MALE ) eGFR calculated 62.1 Not Available [facility] [address] [facility] [address] [facility] 1, [place], [address], 07/09/2024 11:39:54 07/09/20 24 07/09/2024 CMP (MALE ) total protein 6.5 g/dL 6.0-8. 5 Not Available [facility] [address] [facility], [place], [address], 07/09/2024 11:39:54 07/09/20 24 07/09/2024 CMP (MALE ) total bilirubin 0.7 mg/dL 0.2-1. 3 Not Available [facility] [address] [facility], [place], [address], 07/09/2024 11:39:54 07/09/20 24 07/09/2024 CMP (MALE ) albumin 3.8 g/dL 3.5-5. 5 Not Available [facility] [address] [facility] [address] 1, [place], [address], 07/09/2024 11:39:54 07/09/20 24 07/09/2024 CMP (MALE ) globulin 2.7 calc Not Available [facility] [address] [facility] Rosalie [facility] 1, [place], [address], 07/09/2024 11:39:54 07/09/20 24 07/09/2024 CMP (MALE ) AST (SGOT) 21.0 U/L 0.0-46 .0 Not Available [facility] [address] [facility] [address] 1, [place], [address], 07/09/2024 11:39:54 07/09/20 24 07/09/2024 CMP (MALE ) altv (SGPT) 14.0 U/L 13.0-6 9.0 normal Not Available [facility] [address] [facility] 1, [place], [address], 07/09/2024 11:39:54 07/09/20 24 07/09/2024 CMP (MALE ) A/G ratio 1.4 ratio Not Available [facility] [address] [facility], [place], [address], 07/09/2024 11:39:54 07/09/20 24 07/09/2024 CMP (MALE ) ALP phos 112.0 U/L 30.0-1 40.0 normal Not Available [facility] [address] [facility], [place], [address], 07/09/2024 11:39:54 07/09/20 24 07/09/2024 CMP (MALE ) calcium 9.4 mg/dL 8.4-10 .5 Not Available [facility] [address] [facility], [place], [address], 07/09/2024 11:39:54 07/09/20 24 07/09/2024 CMP (MALE ) sodium 141.0 mmol/ L 136.0- 145.0 Not Available [facility] [address] [address], [place], [address], 07/09/2024 11:39:54 07/09/20 24 07/09/2024 CMP (MALE ) potassium 4.1 mmol/ L 3.5-5. 1 Not Available [facility] [address] [facility] 1, [place], [address], 07/09/2024 11:39:54 07/09/20 24 07/09/2024 CMP (MALE ) chloride 109.0 mmol/ L 98.0-1 10.0 normal Not Available [facility] [address] [facility] 1, [place], [address], 07/09/2024 11:39:54 07/09/20 24 07/09/2024 CMP (MALE ) C02 26.0 mmol/ L 22.0-3 1.0 Not Available [facility] [address] [facility] 1, [place], [address], 07/09/2024 11:39:54 07/09/20 24 07/09/2024 CMP (MALE ) anion gap 6.0 calc Not Available [facility] [address] [facility] 1, [place], [address], 07/09/2024 11:39:54 07/09/20 24 07/09/2024 CMP (MALE ) osmolality 295.6 calc Not Available [facility] [address] [facility] [address] 1, [place], [address], 07/09/2024 11:39:54 07/09/20 24 07/09/2024 LIPID PROFI LE (MALE ) cholesterol 99.0 mg/dL 0.0-20 0.0 Not Available [facility] [address] [facility] 1, [place], [address], 07/09/2024 11:39:56 07/09/20 24 07/09/2024 LIPID PROFI LE (MALE ) trig 45.0 mg/dL 0.0-15 0.0 Not Available [facility] [address] [facility] 1, [place], [address], 07/09/2024 11:39:56 07/09/20 24 07/09/2024 LIPID PROFI LE (MALE ) HDL - direct 40.0 mg/dL >40.0 Not Available Geraldo rhonda [facility] [address] [facility] 1, [place], [address], 07/09/2024 11:39:56 07/09/20 24 07/09/2024 LIPID PROFI LE (MALE ) VLDL - direct 9.0 mg/dL Not Available [facility] [address] [facility] 1, [place], [address], 07/09/2024 11:39:56 07/09/20 24 07/09/2024 LIPID PROFI LE (MALE ) LDL - direct 50.0 mg/dL 0.0-13 0.0 Not Available [facility] [address] [facility] 1, [place], [address], 07/09/2024 11:39:56 07/09/20 24 07/09/2024 CBC WBC 9.2 x10 4.5-10 .5 Not Available [facility] [address] [facility] 1, [place], [address], 07/09/2024 11:44:35 07/09/20 24 07/09/2024 CBC RBC 3.68 x10 4.30-5 .90 low Not Available [facility] [address] [facility] 1, [place], [address], 07/09/2024 11:44:35 07/09/20 24 07/09/2024 CBC HGB 11.5 g/dL 13.5-1 8.0 low Not Available [facility] [address] [facility] [address] [facility] 1, [place], [address], 07/09/2024 11:44:35 07/09/20 24 07/09/2024 CBC HCT 34.4 % 35.0-6 0.0 low Not Available [facility] [address] [facility] [address] [facility] 1, [place], [address], 07/09/2024 11:44:35 07/09/20 24 07/09/2024 CBC MCV 93.4 fL 80.0-9 9.9 Not Available [facility] [address] [facility] 1, [place], [address], 07/09/2024 11:44:35 07/09/20 24 07/09/2024 CBC MCH 31.3 pg 27.0-3 2.0 Not Available [facility] [address] [facility] 1, [place], [address], 07/09/2024 11:44:35 07/09/20 24 07/09/2024 CBC MCHC 33.5 g/dL 32.0-3 6.0 Not Available [facility] [address] [facility] [address] [facility] 1, [place], [address], 07/09/2024 11:44:35 07/09/20 24 07/09/2024 CBC RDW 15.6 % 11.5-1 4.5 high Not Available [facility] [address] [facility] 1, [place], [address], 07/09/2024 11:44:35 07/09/20 24 07/09/2024 CBC plt 265.1 x10 150.0- 451.0 Not Available [facility] [address] [facility] 1, [place], [address], 07/09/2024 11:44:35 07/09/20 24 07/09/2024 CBC lymphocytes % 19.5 % 20.0-5 0.0 low Not Available [facility] [address] [facility] [address] 1, [place], [address], 07/09/2024 11:44:35 07/09/20 24 07/09/2024 CBC granulcytes % 68.0 % 30.0-7 0.0 Not Available [facility] [address] [facility] [address] [facility] 1, [place], [address], 07/09/2024 11:44:35 07/09/20 24 07/09/2024 CBC monocytes % 8.2 % 2.0-16 .0 Not Available [facility] [address] [facility] 1, [place], [address], 07/09/2024 11:44:35 07/09/20 24 07/09/2024 CBC granulcytes# 6.3 x10 Not Lina ilable [facility] [address] [facility] 1, [place], [address], 07/09/2024 11:44:35 07/09/20 24 07/09/2024 CBC lymphocytes # 1.8 x10 Not Available [facility] [address] [facility] 1, [place], [address], 07/09/2024 11:44:35 07/09/20 24 07/09/2024 CBC monocytes # 0.8 x10 Not Avai lable [facility] [address] [facility] 1, [place], [address], 07/09/2024 11:44:35 07/09/20 24 07/11/2024 IRON, TIBC AND LUCERO TIN PANEL iron, total 89 mcg/d L 50-180 normal Not Available [employer] [address], [address], 07/11/2024 10:51:32 07/09/20 24 07/11/2024 IRON, TIBC AND LUCERO TIN PANEL iron binding capacity 297 mcg/d L_(ca lc) 250-42 5 normal Not Available [employer] [address] [place], [address], 07/11/2024 10:51:32 07/09/20 24 07/11/2024 IRON, TIBC AND LUCERO TIN PANEL % saturation 30 %_(ca lc) 20-48 normal Not Available [address] [place], [address], 07/11/2024 10:51:32 07/09/20 24 07/11/2024 IRON, TIBC AND ULCERO TIN PANEL ferritin 26 NG/mL 24-380 normal Not Available [employer] [facility] [address] [address] [place], [address], 07/11/2024 10:51:32 07/09/20 24 07/11/2024 FOLAT E, SERUM folate, serum >24.0 NG/mL normal Refer ence Range Low: <3.4 Borde rline : 3.4-5 .4 Val l: >5.4 Not Available [employer] [facility] [address] [place], [address], 07/11/2024 10:51:33 07/09/20 24 07/11/2024 VITAM IN B12 vitamin B12 319 pg/mL 200-11 00 normal Pleas e Note: Altho ugh the refer ence range for vitam in B12 is 200-1 100 pg/mL , it has been repor lavern that betwe en 5 and 10% of patie nts with value s betwe en 200 and 400 pg/mL may exper ience neuro psych iatri c and hemat ologi c abnor malit ies due to occul t B12 defic iency ; less than 1% of patie nts with value s above 400 pg/mL will have sympt oms. Not Available [address], [address], 07/11/2024 10:51:34 07/09/20 24 07/11/2024 PSA, TOTAL PSA, total 12.60 NG/mL < or = 4.00 high The total PSA value from this assay syste m is stand ardiz ed again st the WHO stand aimee. The test resul t will be appro ximat po 20% lower when sohail red to the equim olar- stand ardiz ed total PSA (Smith man Coult er). Sohail rison of seria l PSA resul ts shoul d be inter prete d with this fact in mind. This test was perfo rmed using the Sieme ns chemi lumin escen t metho d. Value s obtai allison from diffe rent assay metho ds canno t be used inter manley eably . PSA level s, regar dless of value , shoul d not be inter prete d as absol [place] evide nce of the prese nce or absen ce of disezoya se. Not Available [employer] [facility] [address], [place], [address], 07/11/2024 10:51:35 06/10/20 24 06/09/2024 arter ial study , non-i nvasi ve physi ologi c, extre mity No observ ation record ed. dcrase [facility] [address] [address], [place], [address], 06/16/2024 09:05:50 08/18/19 25 08/18/2024 CT, abdom en + pelvi s, w/ contr ast No observ ation record ed. dcrase [facility] [address] [place], [address], 08/21/2024 09:06:42 09/04/19 25 09/03/2024 PET-C T, skull base to mid-t high scan No observ ation record ed. dcrase [facility] [address] [place], [address], 09/07/2024 12:27:10 Result Notes None recorded. Problems Name Problem SNOMED Code Status Onset Date Resolution Date Notes Provider Name and Address Organization Details Recorded Time Essential hypertensio n 10993780 Active 2022 TEODORA payne [facility] 3 18:42:03 Gastroesoph ageal reflux disease 427357056 Active 2022 TEODORA payne [facility] 3 18:43:00 Seasonal allergy 241738256 Active 2022 TEODORA payne [facility] 3 18:43:23 Systolic murmur 20318355 Active 2022 Lindsey Conroy MD [address] [place] [address], [address], [facility] 3 12:34:30 Squamous cell carcinoma of skin 485655877 Active 2022 Lindsey Conroy MD [address] [place] [address], [address], [facility] 3 14:53:42 Coronary atheroscler osis 851605004 Active 2023 Lindsey Conroy MD [address] [place] [address], [address], [facility] 4 09:26:34 Chronic systolic heart failure 743896965 Active 2023 Lindsey Conroy MD [address] [place] [address], [address], [facility] 4 09:28:10 Prostate specific antigen above reference range 495308233 Active 2023 AVA payne [facility] 4 09:12:43 Right lower quadrant pain 339128919 Active 2024 Lindsey Conroy MD [address] [place] [address], [address], [facility] 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 5 14:18:28 Problem Notes None recorded. Procedures Surgical History Date Name Laterality Status Provider Name and Address Organization Details Recorded Time 3 Shave Biopsy, Multiple completed Linsdey Conroy MD [address] [place] [address], [address], [facility] 07/26/2023 14:55:40 0 colonoscopy completed AVA MENDEZ [facility] 06/10/2023 10:54:22 total replacement of right hip joint completed ELIZABETH CLOUD PA-C [address] [place], [address], [facility] 06/10/2023 11:26:50 Imaging Results None recorded. Procedure Notes None recorded. Medical Equipment None Reported. Allergies Allergen ID Allergen Name Allergen Category Reaction Reaction Severity Criticality Documentation Date Start Date Code Code System Note Provider Name and Address Organization Details Recorded Time 53128 codeine phosphate medicatio n vomiting Not available Not available 03/01/2023 2672 RxNorm React ion: Vomit ing; Comme nt: Recor ded 11/12 3:05P M by Ronald cai, RT, Offic e Visit ; Promo lavern; Sindhu wilson ce: *; Reaso n: Drug aller gy; ; Not Available [facility] 3 02:30:02 Medications Name Sig Start Date Stop Date Status Note LastModified by Organization Details LastModified Time atorvasta tin 40 mg tablet TAKE 1 TABLET BY MOUTH ONCE DAILY active Not Available Not Available No t Available doxycycli ne hyclate 100 mg capsule TAKE 1 CAPSULE BY MOUTH TWICE DAILY WITH MEALS FOR 10 DAYS 08/26 completed Not Available Not Available Not Available clopidogr el 75 mg tablet TAKE 8 TABLETS BY MOUTH ONCE ON FIRST DAY, THEN 1 TAB ONCE DAILY THEREAFT ER active Not Available Not Available No t Available amlodipin e 5 mg tablet TAKE 1 TABLET BY MOUTH ONCE DAILY active Not Available Not Available No t Available aspirin 81 mg tablet,de layed release Take 1 tablet every day by oral route. active Not Available Not Available No t Available tramadol 50 mg tablet Take 1 tablet every 6 hours by oral route as needed. active Not Available Not Available No t Available amlodipin e 10 mg tablet TAKE 1 TABLET BY MOUTH ONCE DAILY 03/08 completed Not Available Not Available Not Available pantopraz ole 40 mg tablet,de layed release TAKE 1 TABLET BY MOUTH ONCE DAILY active Not Available Not Available No t Available metoprolo l tartrate 50 mg tablet Take 1 tablet by mouth twice daily 2024 active Not Available Not Available Not Avai lable hydrochlo rothiazid e 25 mg tablet TAKE 1 TABLET BY MOUTH ONCE DAILY 03/08 completed Not Available Not Available Not Available fluticaso ne propionat e 50 mcg/actua tion nasal spray,nadir pension daily in each nostril 07/25 completed Recorded 06/17/20 22 2:11PM by Lindsey Conroy MD, Office Visit; Refill Quantity : 3; Each; Not Available Not Available Not Available magnesium twice daily 06/10 completed 0; Recorded 06/17/20 22 2:11PM by Lindsey Conroy MD, Office Visit; Not Available Not Available Not Available metoprolo l tartrate two times daily, see notes 06/05 completed VO CH/ab DC script for 75mg; [address]; Recorded 09/02/19 23 8:26AM by Teodora Husain (Authori zed through Lindsey Conroy MD), Refill Request; Refill Quantity : 0; Not Available Not Available Not Available hydrochlo rothiazid e daily 06/05 completed 53499; Recorded 09/09/19 23 10:50AM by Teodora Husain (Authori zed through Lindsey Conroy MD), Refill Request; Refill Quantity : 90; Tablet; Not Available Not Available Not Available fexofenad ine daily 06/09 completed Recorded 06/17/20 22 2:11PM by Lindsey Conroy MD, Office Visit; Refill Quantity : 90; Tablet; Not Available Not Available Not Available red yeast rice twice daily 07/08 completed 0; Recorded 06/17/20 22 2:11PM by Lindsey Conroy MD, Office Visit; Not Available Not Available Not Available Vitals Date Recorded Body height Body mass index (BMI) Body weight Oxygen saturation Heart rate Body temperature Systolic And Diastolic Provider Name and Address Organization Details Last Updated DateTime 5 170.18 cm 26.5 kg/m2 62422.1 1 g 99 % 48 /min 97.8 [degF] 142/62 mm[Hg] Martha [facility] 5 10:55:13 Date Recorded Body height Body mass index (BMI) Body weight Body temperature Oxygen saturation Heart rate Systolic And Diastolic Provider Name and Address Organization Details Last Updated DateTime 5 170.18 cm 24.9 kg/m2 42485.1 9 g 98.1 [degF] 97 % 83 /min 120/60 mm[Hg] Martha [facility] 5 12:48:25 Date Recorded Body height Body mass index (BMI) Body weight Oxygen saturation Body temperature Heart rate Systolic And Diastolic Provider Name and Address Organization Details Last Updated DateTime 5 170.18 cm 25.7 kg/m2 27869.8 5 g 97 % 98.7 [degF] 79 /min 164/80 mm[Hg] Martha [facility] 5 13:21:04 Date Recorded Body height Body mass index (BMI) Body weight Oxygen saturation Heart rate Respiratory rate Body temperature Systolic And Diastolic Provider Name and Address Organization Details Last Updated DateTime 4 170.18 cm 25.8 kg/m2 90096.7 4 g 97 % 72 /min 20 /min 97 [degF] 110/60 mm[Hg] AVA MENDEZ [facility] 4 14:32:11 Social History Question Answer Notes LastModified by Organizat ion Details LastModified Time Tobacco Smoking Status Former Smoker FAN payne [facility] 07/25/2023 12:23:18 What Is Your Level Of Caffeine Consumption? Moderate Information not available 07/25/2023 What Is Your Relationship Status? Information not available 07/25/2023 Sex: Unknown Functional Status Question Answer Note LastModified by Organization D etails LastModified Time Are you able to care for yourself independently? Yes Information not available 07/25/2023 Mental Status None recorded. Family History Nothing Reported Notes:diabetes: mother, both brothers Medical History No medical history recorded. Immunizations Vaccine Type Date Status Note Provider Nam e and Address Organization Details Recorded Time Influenza, high-dose, quadrivalent, PF 3 completed ELIZABETH CLOUD PA-C [address] [place] [address], [address], [facility] 06/10/2023 11:24:00 COVID-19, mRNA, LNP-S, PF, 30 mcg/0.3 mL dose 1 completed ELIZABETH CLOUD PA-C [address] [place] [address], [address], [facility] 06/10/2023 11:24:00 COVID-19, mRNA, LNP-S, PF, 30 mcg/0.3 mL dose 1 completed ELIZABETH CLOUD PA-C [address] [place] [address], [address], [facility] 06/10/2023 11:24:00 COVID-19, mRNA, LNP-S, PF, 30 mcg/0.3 mL dose, leslie-sucrose 2 completed ELIZABETH CLOUD PA-C [address] [place] [address], [address], [facility] 06/10/2023 11:24:00 COVID-19, mRNA, LNP-S, bivalent, PF, 30 mcg/0.3 mL dose 2 completed ELIZABETH CLOUD PA-C [address] [place] [address], [address], [facility] 06/10/2023 11:24:00 COVID-19, mRNA, LNP-S, PF, leslie-sucrose, 30 mcg/0.3 mL 3 completed ELIZABETH CLOUD PA-C [address] [place], [address], [facility] 06/10/2023 11:24:00 Influenza, split virus, quadrivalent, PF 2 completed ELIZABETH CLOUD PA-C [address] [place], [address], [facility] 06/10/2023 11:24:00 zoster recombinant 3 completed AVA payne, [facility] 06/10/2023 11:49:28 Pneumococcal conjugate PCV20, polysaccharide MUX859 conjugate, adjuvant, PF 3 completed AVA payne, [facility] 06/10/2023 11:49:29 Influenza, split virus, trivalent, preservative 5 completed Not Available [facility] 07/25/2023 12:12:12 pneumococcal polysaccharide PPV23 5 completed Not Available [facility] 07/25/2023 12:12:12 Past Encounters Encounter ID Performer Location Encounter Start Date Encounter Closed Date Diagnosis/Indication Diagnosis SNOMED-CT Code Diagnosis ICD10 Code Diagnosis IMO Codes Diagnosis Note [id number] ELIZABETH CLOUD PA-C [facility] ([facility] [address] [place] [address] [id number] 06/10/2023 10:31:16 06/10/2023 18:30:06 Adult health examination [id number] Z00.00 CCA form filled out during today's office visit Administra tion of pneumococcal vaccine 70627497 Z23 Administra tion of viral vaccine 74512928 Z23 Essential hypertension 71566973 I10 Systolic murmur 13275423 R01.1 [id number] Lindsey Conroy MD [facility] ([facility]) [address] [place] [address] [id number] 5 07/25/2023 12:11:52 07/25/2023 15:57:48 Systolic murmur 38489016 R01.1 The patient denies any history of murmur in the past. Patient has had echoes previously with his last one being several years ago. Recommend repeating echo for evaluation . Patient is not having any significan t symptoms. Squamous c ell carcinoma of skin 139321199 C44.92 Concerned that the lesion that was removed was squamous cell carcinoma. Pathology pending. See procedure note. [id number] Lindsey Conroy MD [facility] ([facility]) [address] [place] [address] [phone] 5 03/08/2024 09:02:59 03/08/2024 09:36:13 Coronary atherosclerosis [id number] I25.84 Patient doing well after balloon. History of placement of stent for coronary artery disease 979093159 Z95.5 Preoperati ve medicine last week cardiology follow-up. Systolic murmur 45711862 R01.1 [id number] ELIZABETH CLOUD PA-C [facility] ([facility]) [address] [place] [address] [phone] 5 07/08/2024 14:18:54 07/14/2024 09:16:14 Adult health examination 051120358 Z00.00 Coronary atherosclerosis 540534765 I25.84 Benign pro static hyperplasia 378081596 N40.0 Peripheral arterial occlusive disease 081112125 I73.9 Prostate s pecific antigen above reference range 454527690 R97.20 wants to use [facility] d if possiblePS A >12 Normocytic normochromic anemia 33052655 D64.9 nomral b12, folic acid and iron studies. [id number] ELIZABETH CLOUD PA-C [facility] ([facility]) [address] [place] [address] [phone] 5 07/09/2024 15:27:35 07/10/2024 07:05:42 Anemia 877358342 D64.9 Normocytic anemia 946515 002 D64.9 [id number] Lindsey Conroy MD [facility] ([facility]) [address] [place] [address] [phone] 5 08/05/2024 10:44:24 08/09/2024 10:23:26 Right lower quadrant pain 853661735 R10.31 The patient does have significan t right lower quadrant pain. This needs to be evaluated further and recommende d CT as a modality of choice. Will provide tramadol to help with some pain. Encouraged patient to seek emergent care or ED if symptoms worsen. [id number] MARICRUZ YEE APRN [facility] ([facility]) [address] [place] [address] [phone] 5 08/15/2024 12:27:56 08/15/2024 13:36:32 Acute bronchitis 45066478 J20.9 [id number] Lidnsey Conroy MD [facility] ([facility]) [address] [place] [address] 5 08/26/2024 13:10:48 08/26/2024 14:16:03 Health Concerns Section Related Observation LastModified by Organization Detai ls LastModified Time None Recorded Concern Status LastModified by Organization Details LastModified Time None Recorded Advance Directives Directive None Recorded Payers Insurance Date Sequence Insurance Name Policy Number Policy Live Covered Member ID Live Member ID Guarantor Name 08/05/2024 1 [facility] (MEDICARE REPLACEMENT/A DVANTAGE - PPO) [id number] Seb Spangler [id number] Seb Spangler 08/26/2024 1 [facility] ([facility]/A DVANTAGE - PPO) [id number] Seb Spangler [id number] Seb Spangler Notes Date Note Type Note Provider Name and Address Organization Details Recorded Time 07/08/2024 text/html Medicare Annual Wellness VisitReported by PatientSocial/Behavio ral HistoryFor diet and nutrition, patient reportshealthy diet,discussed vitamin and supplement use,discussed portion control,discussed maintaining calcium balance, anddiscussed diet improvement. For fracture risk, patient reportsno history of fractures,no recent explained fracture,no sudden unexplained fractures, andno previous musculoskeletal injuries. For physical activity, patient reportsexercises on a regular basis,discussed weightbearing activities, anddiscussed exercise habits.Mental Status:For speech/motor difficulties, patient reportsspeech difficultiesbut reportsno difficulty expressing formulated concepts,no difficulty with fine manipulative tasks,no difficulty writing/copying,no slowed reaction time, anddoes not knock things over when trying to pick them up. For depression risk, patient reportsnever feels sad, empty, or tearful,no loss of interest in activities,no significant changes in weight,no sleep disturbances or insomnia,no agitation,no loss of energy,no feelings of worthlessness or guilt,no thoughts of suicide,no history of depression, andno history of mood disorders. For orientation, patient reportsno disorientation to dateandno disorientation to place. For concentration and memory, patient reportsno decreased concentrating ability,no memory lapses or loss, anddoes not forget words.Functional AbilityFor vision, patient reportsworse both distance and near(wears glasses). For hearing, patient reportswears hearing aids. For activities of daily living, patient reportsable to bathe with limited or no assistance,able to contol urination and bowels,able to dress with limited or no assistance,able to feed self with limited or no assistance,able to get out of chair or bed with limited or no assistance,able to groom with limited or no assistance, andable to toilet with limited or no assistance. For instrumental activities of daily living, patient reportsable to do house work with limited or no assistance,able to grocery shop with limited or no assistance,able to manage medications with limited or no assistance,able to manage money with limited or no assistance,able to prepare meals with limited or no assistance, andable to use the phone with limited or no assistance. For falls risk assessment, patient reportsno frequent falls while walking,no dizziness/vertigo,fal l(s) in the past year 0, andfall(s) since last visit0. For home safety, patient reportsno unsafe stairs,working smoke/co detectors,wears protective head gear for biking/high velocity,use of seatbelts,has hand bars in the bathroom/shower,good lighting in the home,reviewed sun protection, andnumber of motor vehicle accidents 0. ELIZABETH CLOUD PA-C [address] [place] [address], [phone], [facility] [place] [facility] [place]. 07/13/2024 14:36:03 08/05/2024 text/html ROS as noted in the HPI walk inx 2 days c/o LRQ pain, lose stool , no fever Lindsey Conroy MD [address] [place], [phone], [facility], [place] 08/08/2024 07:00:45 08/15/2024 text/html Walk inx 2 days cough, nasal congestion, FLORES MARICRUZ YEE, [employer] [address] [place], [phone], [facility], [place] 08/16/2024 03:55:30 08/26/2024 text/html walk inwoke with sternal pain radiating to left arm, Ilene Conroy pt advised to go to ED Martha payne, [facility], [place] 08/26/2024 13:26:23
== END 2025-06-23 16:41 | disposition short-term general hospital (02) ==
PROVIDERS: Emergency Provider Emergency Medicine; PCP Nurse Practitioner Family
DX: S06.6X0A Traumatic subarachnoid hemorrhage without loss of consciousness, initial encounter (principal); S01.81XA Laceration without foreign body of other part of head, initial encounter; W01.0XXA Fall on same level from slipping, tripping and stumbling without subsequent striking against object, initial encounter; I25.10 Atherosclerotic heart disease of native coronary artery without angina pectoris; I10 Essential (primary) hypertension
CPT/HCPCS: 12011; 36415; 70450; 72125; 72170; 73562; 80053; 85025; 85610; 93005; 96374; 96375; 99285; J0360; J2404; J2405; J3490